=== PATIENT | female | born 1980 | race Caucasian/White ===

== ENCOUNTER 2022-09-12 10:47 | Outpatient (RCR) | payer BC, SELFPAY | END 2022-10-15 15:36 | disposition home or self-care (01) | LOC: PT 10:47 | PROVIDERS: PCP Podiatrist Foot & Ankle Surgery; Visit Provider Podiatrist Foot & Ankle Surgery | DX: M24.571 Contracture, right ankle (principal); M72.2 Plantar fascial fibromatosis; M25.561 Pain in right knee | CPT/HCPCS: 97035; 97110; 97140; 97161 ==

== ENCOUNTER 2022-12-03 09:02 | Outpatient (OUT) | payer BC, SELFPAY ==
--- NOTE | 2022-12-03 09:09 | ECG_ITS ---
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
--- NOTE | 2022-12-03 10:00 | P.GSHP_ITS ---
History of Present Illness History of Present Illness Chief complaint: right plantar fascia fibromatosis Narrative: Patient presents for preadmission testing. Patient reports a long history of right heel pain. She states she completed physical therapy, took meloxicam, tried a brace, no improvement her pain. The patient reports severe anxiety and fear over needle sticks and IV starts and is very focused on this during her visit here today. She states she had an episode of syncope with atrial fibrillation after a lab draw approximately 4-5 years ago. She denies any numbness, tingling, or weakness in her right lower extremity. Review of Systems ROS Narrative REVIEW OF SYSTEMS: Negative except as stated in HPI, ten or more systems reviewed. Constitutional: No fever , chills, weakness ENT: No sore throat or epistaxis Cardiovascular: No edema, chest pain, palpitations, or activity intolerance Respiratory: No shortness of breath, cough, or wheezing Gastrointestinal: No abdominal pain, constipation, diarrhea, or vomiting Genitourinary: No dysuria or hematuria Neurological: No numbness, tingling, weakness, or headache Psychiatric: No mood changes [facility] Medical History (Updated 12/03/22 @ 09:37 by Kera Foy NP) Ankle contracture ?M24.573 - Contracture, unspecified ankle (ICD-10) Anxiety ?F41.9 - Anxiety disorder, unspecified (ICD-10) Asthma ?J45.909 - Unspecified asthma, uncomplicated (ICD-10) Atrial fibrillation ?I48.91 - Unspecified atrial fibrillation (ICD-10) COVID-19 ?U07.1 - COVID-19 (ICD-10) Delayed recovery from anesthesia Fear of needles ?F40.298 - Other specified phobia (ICD-10) Hypothyroidism ?E03.9 - Hypothyroidism, unspecified (ICD-10) Migraine ?G43.909 - Migraine, unspecified, not intractable, without status migrainosus (ICD-10) Plantar fascial fibromatosis ?M72.2 - Plantar fascial fibromatosis (ICD-10) Snoring ?R06.83 - Snoring (ICD-10) Syncope ?R55 - Syncope and collapse (ICD-10) Surgical History (Updated 12/03/22 @ 09:37 by Kera Foy NP) History of dilation and curettage ?Z98.890 - Other specified postprocedural states (ICD-10) History of foot surgery ?Z98.890 - Other specified postprocedural states (ICD-10) History of hysterectomy ?Z90.710 - Acquired absence of both cervix and uterus (ICD-10) History of laparoscopy ?Z98.890 - Other specified postprocedural states (ICD-10) History of wisdom tooth extraction ?K08.409 - Partial loss of teeth, unspecified cause, unspecified class (ICD- 10) Family History (Updated 12/03/22 @ 09:37 by Kera Foy NP) Other Cervical cancer Family history of DVT Family history of breast cancer Family history of diabetes mellitus Family history of hypertension Family history of lung cancer Family history of myocardial infarction Family history of stroke Social History (Updated 12/03/22 @ 09:30 by Kera Foy NP) Within the past year, how often did you have a drink containing alcohol: monthly or less Smoking status: Never smoker Non-prescribed substance use: denies use 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 Highest level of school completed/degree received: high school graduate Meds Home Medications and Allergies Home Medications Medication Instructions Recorded Confirmed Type albuterol sulfate 90 mcg/actuation 2 inh inhalation Q6H PRN shortness 12/03/22 12/03/22 History aerosol inhaler (ProAir HFA) of breath or wheezing cetirizine 10 mg tablet (Zyrtec) 10 mg PO DAILY 12/03/22 12/03/22 History ergocalciferol (vitamin D2) 1,250 1,250 mcg PO DAILY 12/03/22 12/03/22 History mcg (50,000 unit) capsule (Drisdol) levothyroxine 125 mcg capsule 125 mcg PO DAILY 12/03/22 12/03/22 History multivitamin (Daily Multi-Vitamin 1 tab PO DAILY 12/03/22 12/03/22 History tablet) vitamin A 2,500 unit-vit C 100 cap 12/03/22 History mg-biotin 2,500 cnq-jutr-fujtgx capsule (Crpy-Ouji-Cdod (vit A,S-wqgfcx-Lh-Cu)) Allergies Allergy/AdvReac Type Severity Reaction Status Date / Time Cephalosporins Allergy itchy skin Verified 12/03/22 09:26 chlorpheniramine Allergy Hives Verified 12/03/22 09:26 phenylephrine Allergy Rash Verified 12/03/22 09:26 phenylpropanolamine Allergy Rash Verified 12/03/22 09:26 phenyltoloxamine Allergy Rash Verified 12/03/22 09:26 sulfamethoxazole Allergy itchy skin Verified 12/03/22 09:26 [From Bactrim] trimethoprim [From Bactrim] Allergy itchy skin Verified 12/03/22 09:26 Exam Narrative Exam Narrative: Constitutional: Awake, alert, very anxious, well-appearing, nontoxic, interactive, vital signs as charted Head: Normocephalic, atraumatic Neck: Supple, normal appearance, normal range of motion, no meningeal signs, no lymphadenopathy Respiratory: No respiratory distress, breath sounds clear Cardiovascular: Regular rate and rhythm, strong and regular heart tones Musculoskeletal: Tenderness over the medial instep of the right foot on the plantar aspect, no obvious deformity, sensation intact, full range of motion, good capillary refill Skin: No rashes or induration, no lesions, only visible skin inspected Neuro: No neurological deficits, normal sensation Psychiatric: Oriented ?3, anxious affect Assessment and Plan Assessment and Plan (1) Ankle contracture: (2) Plantar fascial fibromatosis: Plan Right lower extremity EPF and gastrocnemius recession scheduled with Dr. Mcghee 12/08/2022.
[2022-12-03 10:26] LABS: Anion Gap 8.9; BUN Creatinine Ratio 9.1; Calcium 8.7 mg/dL (8.5-10.1); Carbon Dioxide 27.9 mmol/L (21.0-32.0); Chloride 102 mmol/L (98-107); Estimated GFR (African America >60 (>=60); Estimated GFR (Non-African Ame >60 (>=60); Glucose 105 mg/dL (74-106); Potassium 3.8 mmol/L (3.5-5.1); Sodium 135 mmol/L (136-145)
[2022-12-03 10:30] LABS: INR 0.95; Prothrombin Time 10.1 sec (9.0-11.6)
== END 2022-12-03 09:03 | disposition home or self-care (01) ==
PROVIDERS: PCP Family Medicine; Visit Provider Podiatrist Foot & Ankle Surgery
DX: Z01.810 Encounter for preprocedural cardiovascular examination (principal); Z01.812 Encounter for preprocedural laboratory examination; M72.2 Plantar fascial fibromatosis; M24.571 Contracture, right ankle; I10 Essential (primary) hypertension
CPT/HCPCS: 80048; 85610; 85730; 93005; G0463

== ENCOUNTER 2022-12-08 06:16 | Day surgery (SDC) | payer BC, SELFPAY ==
[2022-12-03 09:56] VITALS: BP 119/73; PULSE 72; RESP 22; TEMP 36.5; O2SAT 98; BMI 37.8
[2022-12-08] VITALS (10 sets, daily range): BP systolic 116–146; BP diastolic 63–76; PULSE 78–93; RESP 10–18; TEMP 36.3–36.5; O2SAT 93–99
[2022-12-08 07:23] LABS: Glucometer 104 mg/dL (74-106)
--- NOTE | 2022-12-08 07:42 | PC.NURSE ---
Tolerated IV start very poorly; 3 attempts unsuccessful by 3 different nurses
[2022-12-08] MEDS: LACTATED RINGER'S SOLUTION 1,000 ML 50 ML IV (07:45)
[2022-12-08] MEDS: CLINDAMYCIN PHOSPHATE/D5W 900 MG/50 ML PIGGYBACK 50 MG IV (07:46)
--- NOTE | 2022-12-08 08:14 | P.ORON_ITS ---
Brief Operative Note Date of procedure: 12/08/22 Pre-op diagnosis: right plantar fasciitis and equinus Post-op diagnosis: same as pre-op Procedure: PROCEDURES PERFORMED: right endoscopic plantar fasciotomy and gastrocnemius recession INTRAOPERATIVE FINDINGS: reduced ankle joint dorsiflexion which is more pronounced with the knee extended. Thickened and taught plantar fascia consistent with chronic plantar fasciitis. PROCEDURE IN DETAIL: Patient was identified in pre op and consent was reviewed. Correct side and site were identified and marked. Pre-op antibiotics were started. Patient was brought to OR suite and place on table in a supine position. General anesthesia was administered. Tourniquet applied. Operative extremity was prepped and draped in usual sterile fashion. Formal time-out was performed and the foot/ankle were exsanguinated and tourniquet inflated. A longitudinal incision over the medial aspect of the calf two finger breadths posterior to the posterior aspect of tibia was performed. Combination sharp and blunt dissection with all bleeders being coagulated gained access to the gastrocnemius aponeurosis. Once the aponeurosis was isolated a speculum was inserted from the medial to lateral position just superficial to the aponeurosis. The speculum allowed full visualization of the aponeurosis and the foot was held in maximal dorsiflexed position. A fifteen blade was used to transversely incise the gastrocnemius fascia to two separate location (one proximal and one distal) followed by release of the soleus fascia. 10 degrees of ankle joint dorsiflexion was obtained. The area was flushed with copious sterile saline and skin was closed in layers. Stab incision over the medial aspect of the in-step at the glabrous skin junction was used followed by blunt dissection and the medial band of the plantar fascia was identified. Trochar and cannula were then placed medial to lateral. A lateral stab incision was made to allow passage of the trochar and cannula. Camera was inserted into the lateral portal and a hook blade was placed into the medial portal. 50% of the plantar fascia was released and healthy muscle was noted. The site was flushed with saline and instrumentation was removed. Closure with nylon suture was then undertaken. A dry sterile dressing was placed followed by CAM boot. Patient tolerated the procedure and anesthesia well and was transferred to the recovery room with vital signs stable and brisk capillary refill to the toes. POSTOPERATIVE PLAN:Discharge home under family's care Post op instructions provided verbally and written prescription(s) were placed in chart Weightbearing as tolerated in cam boot for three weeks Patient should sleep in cam boot or night splint Follow-up in 1-3 weeks Implants: none Anesthesia: General-LMA Surgeon: Jun Mcghee Locker Room Supervisor: Severiano Carson Estimated blood loss (mL): 10 Pathology: none sent Condition: stable Disposition: PACU Preoperative Details Reason for procedure: patient is a 42-year-old female who is had recalcitrant right heel pain which did not respond to nonsurgical treatment. Nonsurgical treatment attempted was formal physical therapy, night splint, compression socks, oral steroids, heel cup/orthotics and NSAIDs. An MRI was obtained which demonstrated thickening of the plantar fascia with bone marrow edema at its attachment. Due to her failure to respond to nonsurgical treatment she wished to proceed with surgery and she was educated on all potential risks and benefits.
[2022-12-08] MEDS: BUPIVACAINE HCL 0.5% PF 50 MG/10 ML VIAL 20 ML INJ (08:16)
[2022-12-08 09:20] LABS: Glucometer 112 mg/dL (74-106)
--- NOTE | 2022-12-08 09:27 | PC.NURSE ---
Toes to right pink and warm with brisk capillary refill; extremity elevated and ice placed behind knee
--- NOTE | 2022-12-08 09:33 | PC.NURSE ---
right toes pink and warm
--- NOTE | 2022-12-08 10:14 | PC.NURSE ---
c/o pain in right calf, only with movement
--- NOTE | 2022-12-08 12:03 | PC.NURSE ---
c/o nausea after getting dressed; no emesis; assisted with lying down
--- NOTE | 2022-12-08 12:04 | PC.NURSE ---
states nausea continues when in sitting position; no emesis; DC'd per wheelchair; states she has pain in right calf when putting weight on extremity; instructed to take pain medication that will be picked up at pharmacy; verbalized understanding
== END 2022-12-08 11:35 | disposition home or self-care (01) ==
PROVIDERS: PCP Family Medicine; Visit Provider Podiatrist Foot & Ankle Surgery
PROC: (CPT 27687; principal; 2022-12-08 07:30)
DX: M72.2 Plantar fascial fibromatosis (principal); M24.571 Contracture, right ankle; Z79.899 Other long term (current) drug therapy; M21.6X1 Other acquired deformities of right foot; F41.9 Anxiety disorder, unspecified; J45.909 Unspecified asthma, uncomplicated; I48.91 Unspecified atrial fibrillation; Z86.16 Personal history of COVID-19; F40.298 Other specified phobia; E03.9 Hypothyroidism, unspecified; Z90.710 Acquired absence of both cervix and uterus; Z98.890 Other specified postprocedural states; Z79.890 Hormone replacement therapy
CPT/HCPCS: 27687; 29893; 36415; 36416; 82948; J1170; J2704

== ENCOUNTER 2023-01-19 10:00 | Outpatient (OUT) | payer BC, SELFPAY | END 2023-01-19 10:01 | disposition home or self-care (01) | LOC: SLEEP 10:00 | PROVIDERS: PCP Family Medicine; Visit Provider Family Medicine | DX: G47.33 Obstructive sleep apnea (adult) (pediatric) (principal) | CPT/HCPCS: 95806 ==

== ENCOUNTER 2024-04-28 10:50 | Outpatient (OUT) | payer BC, SELFPAY ==
--- NOTE | 2024-04-28 10:59 | XR_ITS ---
[facility] [place] [id number] Patient Name: RUBIA GIPSON MRN: [id number] date: 1980 Sex: F Assigned Patient Location: [facility] Current Patient Location: [facility] Accession/Order Number: [id number] Exam Date: 04/28/2024 11:23 Report Date: 04/28/2024 11:26 At the request of: FATOUMATA BARRIOS MD Procedure: XR wrist LT min 3V LEFT WRIST - 3 views COMPARISON: None CLINICAL DATA: Left wrist pain. Recent falls. AP, lateral and oblique views were obtained. No acute or healing fractures are identified. No dislocation is seen. No soft tissue swelling is present. XR/XR wrist LT min 3V IMPRESSION: NO ACUTE BONY FINDINGS. Impression dictated by: Courtney Rodríguez M.D.04/28/2024 11:26 AM Dictation Location: [facility] Electronically authenticated by: [id number] Y Date: 04/28/2024 11:26
--- OUTSIDE RECORDS SUMMARY | 2024-04-28 11:00 | XMS_ITS | CCD ---
Author Organization [facility] Care Team Providers Care Appraiser [employer] Name Role Phone PHYSICIAN, DEFAULT Admitting Unavailable PHYSICIAN, DEFAULT Attending Unavailable Daria Lawler Unavailable MD Cristina Barrios Primary Care Provider MD Cristina Barrios Attending Provider EMMANUEL, DR GORDON Admitting Unavailable KAREDUARDOK, DR GORDON Attending Unavailable DENIS, DR CRISTINA Garces Primary Care Unavailable KARMADISON, DR GORDON Consulting Unavailable ZIEBER, DR MG Rivers Consulting Unavailable LISANDROJEMAL LUKE Admitting Unavailable JEMAL MCMAHON Attending Unavailable DENIS, DR CRISTINA Garces Primary Care Unavailable JEMAL MCMAHON Consulting Unavailable DENIS, DR CRISTINA Garces Admitting Unavailable BARRIOS, DR CRISTINA Garces Attending Unavailable DENIS, DR CRISTINA Garces Primary Care Unavailable BARRIOS, DR CRISTINA Garces Consulting Unavailable KARASIK, DR GORDON Admitting Unavailable KARASIK, DR GORDON Attending Unavailable DENIS, DR CRISTINA Garces Primary Care Unavailable KARMADISON, DR GORDON Consulting Unavailable Cristina Barrios Unavailable KIMBERLY Hobson Attending Provider Stephanie Hobson Admitting Unavailable Stephanie Hobson Attending Unavailable Cristina Barrios Admitting Unavailable Cristina Barrios Primary Care Unavailable Cristina Barrios Attending Unavailable Stephanie Hobson Unavailable Cristina Barrios MD Primary Care Provider [phone] QUITA BARNEY Attending Unavailable CRISTINA BARRIOS Referring Unavailable SUZE SOMERS Attending Unavailable SUZE SOMERS Referring Unavailable Allergies Allergy Classification Reported Allergen(s) Allergy Type Date of Onset Reaction(s) Facility (16 sources) Sulfamethoxazole / Trimethoprim Drug Allergy 023 Itching, Rash [employer] Other (15 sources) cephalaexin Propensity to adverse reactions Unknown, [facility] (17 sources) Cephalexin; Translations: [cephalexin] Drug Allergy 009 Hives, Rash [facility] (6 sources) Sulfamethoxazole Drug Allergy Dizziness, Dizziness, itching [facility] (10 sources) Trimethoprim Drug Allergy Dizziness, Dizziness, itching [facility] (16 sources) naldacon Allergy to substance Rash, NALDACON Comment:facial [facility] (5 sources) Cephalosporins (Antibiotic) Drug allergy (disorder) CEPHALOSPORINS [facility] (1 source) Chlorpheniramine / Phenylephrine / Phenylpropanolamine / phenyltoloxamine Drug Allergy [facility] (1 source) Sulfamethoxazole / Trimethoprim Drug Allergy [facility] (6 sources) Seasonal allergy Propensity to adverse reactions SEASONAL [employer] Other (6 sources) NALDOCON Propensity to adverse reactions 014 Unknown [employer] Other (6 sources) Medicinal cephalosporin and acting as antibacterial agent (FN) Drug allergy CEPHALOSPORINS [employer] Other (6 sources) Sulf-10 Drug allergy 018 Unknown [employer] Other (6 sources) Allergies Reconciled Propensity to adverse reactions Unknown [employer] Other (6 sources) patient allergy list reviewed by nurse or physicia Propensity to adverse reactions Comment:Done [employer] Other (4 sources) Sulfonamides (Antibiotic) Allergy to substance 024 [facility] (5 sources) Sulfonamides (Antibiotic) Drug Allergy Rash [facility] (4 sources) Cephalosporins (Antibiotic) Drug Allergy 024 Itching [facility] Medications Current Medications Medication Drug Class(es) Dates Sig (Normalized) Sig (Original) Airborne Gummies (11 sources) Airborne Gummies Not-Taking Airborne Gummies Active [id number] 200 actuat albuterol 0.09 mg/actuat metered dose inhaler (14 sources) beta2-Adrenergic Agonist Start: 04-21-2023 take 1 puff(s) by inhalation every four hours as needed Albuterol Sulfate (Ventolin Hfa) 90 mcg/actuation HFA aerosol inhaler Active 1 PUFF INHALATION Every 4 hours April 21, 2023 1:00am [employer] puff as needed Inhalation every 4 hrs; Note: Source Status: Taking; Provider: Denis Evans ( ) take 1 puff(s) by in halation every four hours as needed Ventolin HFA 108 (90 Base) MCG/ACT 1 puf f as needed Inhalation every 4 hrs Active cetirizine hydrochloride 10 mg oral tablet (19 sources) Histamine-1 Receptor Antagonist Start: 04-21-2023 take 1 tablet by mouth once daily as needed Cetirizine (Zyrtec) 10 mg tablet Active 1 TAB PO Daily April 21, 2023 1:00am [employer] tablet as needed Orally Once a day; Note: Source Status: Taking; Provider: Denis Evans ( ) cetirizine (ZyrT EC) 10 MG tablet Take 5 mg by mouth Active Cholecalciferol (9 sources) Vitamin D Start: 04-21-2023 take 10 ug by mouth once daily Cholecalciferol (Vitamin D3) Active 10 MCG PO Daily April 21, 2023 1:00am Start: 04-21-2023 take 10 ug by mouth once daily Cholecalciferol (Vitamin D3) Active 10 MCG PO Daily April 21, 2023 12:00am End: 02-12-2024 cholecalciferol (Vitamin D3) 25 MCG (1000 UT) tablet 1 (one) time each day at the same time 02/12/2024 Discontinued (Therapy completed) doxycycline hyclate 100 mg oral tablet (1 source) Tetracycline-class Drug Start: 11-23-2023 take 100 mg by mouth twice daily Doxycycline Hyclate Active 100 MG PO Twice daily November 23, 2023 12:00am fluticasone propionate 0.05 mg/actuat metered dose nasal spray (9 sources) Corticosteroid Start: 06-24-2021 take 2 spray(s) nasal route once daily Fluticasone Propionate 50 MCG/ACT 2 sprays Nasally Once a day for 14 day(s) May, Active take 1 spray(s) nasal route once daily fluticasone (Flonase) 50 MCG/ACT nasal spray Administer 1 spray into each nostril Daily Shake gently. Before first use, prime pump. After use, clean tip and replace cap. Active meloxicam 15 mg oral tablet (5 sources) Nonsteroidal Anti-inflammatory Drug take 1 tablet by mouth every twenty-four hours Meloxicam 15 MG 1 tablet Orally Once a day Active Meloxicam Active Mgrjgshh-Ogl-Rwx C-Herb No.124 (Airborne Gummy) 250-11.66 mg tablet,chewable (4 sources) Start: 04-21-2023 take 1 tablet by mouth once Nfcipltb-Udl-Phg C-Herb No.124 (Airborne Gummy) 250-11.66 mg tablet,chewable Active TAB PO April 21, 2023 1:00am Start: 04-21-2023 take 1 tablet by mouth once Mu hpyhav-Etu-Hsv C-Herb No.124 (Airborne Gummy) 250-11.66 mg tablet,chewable Active TAB PO April 21, 2023 12:00am Multivitamin (One Daily Multivitamin) tablet (4 sources) Start: 04-21-2023 take 1 tablet by mouth once daily Multivitamin (One Daily Multivitamin) tablet Active 1 TAB PO Daily April 21, 2023 1:00am Start: 04-21-2023 take 1 tablet by hang th once daily Multivitamin (One Daily Multivitamin) tablet Active 1 TAB PO Daily April 21, 2023 12:00am Multivitamin preparation (11 sources) Multivitamin Not -Taking Multivitamin Act [place] Vitamin D3 (11 sources) Vitamin D3 Activ e Completed/Discontinued Medications Medication Drug Class(es) Dates Sig (Normalized) Sig (Original) amoxicillin 500 mg oral tablet (2 sources) Penicillin-class Antibacterial Start: 11-10-2023 End: 11-23-2023 take 500 mg by mouth three times daily Amoxicillin Discontinued 500 MG PO Three times daily November 10, 2023 12:00am November 23, 2023 9:03am azithromycin 250 mg oral tablet (14 sources) Macrolide Antimicrobial Start: 02-16-2023 End: 11-10-2023 take 2 tablets by mouth once daily, then take 1 tablet by mouth once daily Azithromycin Discontinued 250 MG PO Daily June 30, 2023 11:34am November 10, 2023 2:02pm FreeTextSig: as directed Orally 2 tabs po today, then 1 tab daily x 4 more days; Note: Source Status: Start; Refills: 0; Provider: Denis Garces levothyroxine sodium 0.125 mg oral capsule (20 sources) l-Thyroxine Start: 04-21-2023 End: 06-30-2023 take 125 ug by mouth once daily Levothyroxine Discontinued 125 MCG PO Daily April 21, 2023 1:00am June 30, 2023 11:19am Start: 04-24-2017 take 125 ug by mouth once benoit y Levothyroxine Active 125 MCG PO Daily April 24, 2017 1:00am take 1 capsule by [facility] every twenty-four hours Levothyroxine Sodium 125 MCG 1 tablet Orally Once a day for 30 Active Ortho-Cyclen (28) 0.25-35 MG-MCG (5 sources) take 1 tablet by mouth once daily Ortho-Cyclen (28) 0.25-35 MG-MCG 1 tablet Orally Once a day Not-Taking phenazopyridine hydrochloride 200 mg oral tablet (10 sources) Start: 04-21-2023 End: 06-30-2023 take 1 tablet by mouth three times daily after mealtime as needed Phenazopyridine Discontinued MG PO April 21, 2023 1:00am June 30, 2023 11:21am [employer] tablet after meals Orally Three times a day prn; Note: Source Status: Taking; Refills: 0; Qty: 9 tabs; Provider: Jazlyn Brown Start: 12-06-2022 take 1 tablet by hang three times daily after mealtime as needed Phenazopyridine HCl 200 MG 1 tablet after meals Orally Three times a day prn for 3 days Nov, Active Start: 12-06-2022 take 1 tablet by hang three times daily after mealtime as needed Phenazopyridine HCl 200 MG 1 tablet after meals Orally Three times a day prn for 3 days Nov, Active traMADol hydrochloride 50 mg oral tablet (4 sources) Opioid Agonist take 1 tablet by hang th every twenty-four hours traMADol HCl 50 MG 1 tablet as needed Orally Once a day Not-Taking Problems Active Problems Problem Classification Problem Date Documented Date Episodic/Chronic Abdominal pain (20 sources) Abdominal pain; Translations: [Unspecified abdominal pain] Onset: 02-20-2017 Resolved: 01-05-2020 04-24-2017 Episodic Acquired foot deformities (6 sources) Acquired deformity of right foot; Translations: [Other acquired deformities of right foot] Episodic Asthma (20 sources) Uncomplicated mild persistent asthma; Translations: [Mild persistent asthma, uncomplicated] Chronic Cardiac dysrhythmias (6 sources) Atrial fibrillation; Translations: [Unspecified atrial fibrillation] Chronic Complications of surgical procedures or medical care (15 sources) Postoperative hypothyroidism; Translations: [Postprocedural hypothyroidism] Onset: 07-03-2021 Chronic Esophageal disorders (16 sources) Gastroesophageal reflux disease; Translations: [Gastro-esophageal reflux disease without esophagitis] Chronic Genitourinary symptoms and ill-defined conditions (17 sources) Dysuria; Translations: [Dysuria] Onset: 01-07-2022 Episodic Inflammation; infection of eye (except that caused by tuberculosis or sexually transmitteddisease) (6 sources) External hordeolum; Translations: [Hordeolum externum left lower eyelid] Episodic Inflammatory diseases of female pelvic organs (6 sources) Female pelvic peritoneal adhesions; Translations: [Female pelvic peritoneal adhesions (postinfective)] Episodic Mycoses (6 sources) Tinea corporis; Translations: [Tinea corporis] Episodic Nonmalignant breast conditions (12 sources) Pain of breast; Translations: [Mastodynia] Onset: 11-10-2006 Resolved: 11-15-2015 Episodic Nutritional deficiencies (1 source) Vitamin D deficiency, unspecified; Translations: [VITAMIN D DEFICIENCY UNSPECIFIED] Onset: 07-04-2021 Chronic Other acquired deformities (6 sources) 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; Translations: [Contracture, right ankle] Chronic Other aftercare (6 sources) Long-term current use of inhaled steroid; Translations: [FDC (current) use of 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] Episodic Other circulatory disease (6 sources) Elevated blood-pressure reading without diagnosis of hypertension; Translations: [Elevated blood-pressure reading, without diagnosis of hypertension] Episodic Other connective tissue disease (6 sources) Muscle pain; Translations: [MYALGIA, UNSPECIFIED SITE] Episodic Other connective tissue disease (6 sources) Peroneal tendinitis; Translations: [Peroneal tendinitis, right leg] Episodic Other non-traumatic joint disorders (16 sources) Arthralgia of the ankle and/or foot; Translations: [Pain in right ankle and joints of right foot] Episodic Other non-traumatic joint disorders (1 source) Pain in right ankle and joints of right foot Episodic Other non-traumatic joint disorders (6 sources) Arthralgia of the lower leg; Translations: [Pain in left knee] Episodic Other non-traumatic joint disorders (6 sources) Instability of joint of right ankle; Translations: [Other instability, right ankle] Episodic Other nutritional; endocrine; and metabolic disorders (20 sources) Obesity; Translations: [Obesity, unspecified] Onset: 10-16-2015 Chronic Other nutritional; endocrine; and metabolic disorders (11 sources) Obese class I; Translations: [Body mass index (BMI) 33.0-33.9, adult] Chronic Other nutritional; endocrine; and metabolic disorders (12 sources) Obese class II; Translations: [Body mass index (BMI) 35.0-35.9, adult] Chronic Other screening for suspected conditions (not mental disorders or infectious disease) (10 sources) Encounter for screening mammogram for malignant neoplasm of breast; Translations: [Encounter for screening for malignant neoplasm of cervix] Onset: 01-27-2022 Episodic Other skin disorders (6 sources) Other seborrheic keratosis; Translations: [Seborrheic keratosis] Episodic Other upper respiratory disease (12 sources) Allergic rhinitis; Translations: [Other allergic rhinitis] Onset: 06-17-2013 Resolved: 01-05-2020 Chronic Other upper respiratory infections (6 sources) Chronic sinusitis; Translations: [Chronic sinusitis, unspecified] Chronic Other upper respiratory infections (13 sources) Acute sinusitis, unspecified; Translations: [Acute sinusitis] Onset: 06-17-2013 Resolved: 06-24-2021 Episodic Otitis media and related conditions (4 sources) Chronic mucoid otitis media of left middle ear; Translations: [Other chronic nonsuppurative otitis media, left ear] 11-23-2023 Chronic Otitis media and related conditions (20 sources) Dysfunction of left eustachian tube; Translations: [Other specified disorders of Eustachian tube, left ear] Onset: 12-01-2023 12-01-2023 Episodic Residual codes; unclassified (5 sources) Obstructive sleep apnea syndrome; Translations: [Obstructive sleep apnea (adult) (pediatric)] Chronic Residual codes; unclassified (2 sources) Obstructive sleep apnea (adult) (pediatric) Chronic Residual codes; unclassified (1 source) Family history of malignant neoplasm of breast; Translations: [FAMILY HX MALIG NEOPLASM OF BREAST] Onset: 02-25-2022 Episodic Residual codes; unclassified (1 source) Family history of malignant neoplasm of trachea, bronchus and lung; Translations: [FAM HX MALIG NEOPLSM TRACH BRON LNG] Onset: 02-25-2022 Episodic Residual codes; unclassified (1 source) Family history of malignant neoplasm of other genital organs; Translations: [FAM HX MALIG NEOPLSM OTH GENIT ORGN] Onset: 02-25-2022 Episodic Residual codes; unclassified (6 sources) Family history of breast cancer; Translations: [Family history of malignant neoplasm of breast] Episodic Residual codes; unclassified (6 sources) Patient's intentional underdosing of medication regimen due to financial hardship; Translations: [Patient's intentional underdosing of medication regimen due to financial hardship] Episodic Residual codes; unclassified (6 sources) Tobacco user; Translations: [Tobacco use] Episodic Residual codes; unclassified (6 sources) Postprocedural state finding; Translations: [Other specified postprocedural states] Episodic Skin and subcutaneous tissue infections (6 sources) Cellulitis and abscess of trunk; Translations: [Cutaneous abscess of groin] Episodic Thyroid disorders (20 sources) Graves' disease; Translations: [Thyrotoxicosis with diffuse goiter without thyrotoxic crisis or storm] Onset: 05-22-2014 Resolved: 01-05-2020 Chronic Viral infection (6 sources) Disease caused by 2019-nCoV; Translations: [COVID-19] Past or Other Problems Problem Classification Problem Date Documented Date Episodic/Chronic Acute bronchitis (6 sources) Acute bronchitis; Translations: [Acute bronchitis, unspecified] Onset: 10-13-2014 Episodic Administrative/social admission (6 sources) Problems in relationship with spouse or partner; Translations: [Partner relationship problem] Onset: 06-14-2009 Episodic Endometriosis (6 sources) Endometriosis; Translations: [Endometriosis of pelvic peritoneum, unspecified] Resolved: 11-24-2016 Immunizations and screening for infectious disease (7 sources) Encounter for screening for human papillomavirus (HPV); Translations: [Vaccination given] Onset: 12-15-2013 Resolved: 01-05-2020 Episodic Malaise and fatigue (6 sources) Malaise and fatigue; Translations: [Other malaise and fatigue] Onset: 01-11-2014 Episodic Nonspecific chest pain (6 sources) Chest pain; Translations: [Chest pain, unspecified] Onset: 11-23-2017 Resolved: 01-05-2020 Episodic Other aftercare (6 sources) History and physical examination, follow-up; Translations: [Encounter for follow-up examination after completed treatment for conditions other than malignant neoplasm] Resolved: 10-27-2016 Episodic Other connective tissue disease (6 sources) Pain in right foot; Translations: [Pain in right foot] Resolved: 01-21-2021 Episodic Other ear and sense organ disorders (6 sources) Otalgia; Translations: [Otalgia, unspecified ear] Onset: 05-22-2014 Resolved: 01-05-2020 Episodic Other female genital disorders (6 sources) Abnormal uterine bleeding; Translations: [Abnormal uterine and vaginal bleeding, unspecified] Resolved: 11-24-2016 Chronic Other female genital disorders (6 sources) Postcoital bleeding; Translations: [Postcoital and contact bleeding] Resolved: 11-24-2016 Chronic Other female genital disorders (6 sources) Abnormal vaginal bleeding; Translations: [Other specified abnormal uterine and vaginal bleeding] Onset: 08-22-2016 Resolved: 01-05-2020 Chronic Other female genital disorders (6 sources) Other specified conditions associated with female genital organs and menstrual cycle; Translations: [Oth cond assoc w female genital organs and menstrual cycle] Resolved: 11-24-2016 Episodic Other nutritional; endocrine; and metabolic disorders (6 sources) Abnormal weight gain; Translations: [Abnormal weight gain] Onset: 01-11-2014 Resolved: 01-05-2020 Episodic Other nutritional; endocrine; and metabolic disorders (6 sources) Overweight; Translations: [Overweight] Onset: 10-16-2015 Resolved: 01-05-2020 Episodic Other and delivery including normal (6 sources) Primigravida; Translations: [Supervision of normal first ] Onset: 04-06-2006 Episodic Spondylosis; intervertebral disc disorders; other back problems (6 sources) Low back pain; Translations: [Lumbago] Onset: 05-22-2014 Resolved: 01-05-2020 Episodic Unclassified (6 sources) Contraception care education done; Translations: [General counseling for prescription of oral contraceptives] Onset: 12-17-2006 Results Test Name Value Interpretation Reference Range Facil ity BI MAMMOGRAM SCREENING TOMOS YNTHESIS BILATERALon 03-14-2024 BI MAMMOGRAM SCREENING TOMOSYNTHESIS BILATERAL This is a summary report. The complete report is available in the patient's medical record. If you cannot access the medical record, please contact the sending organization for a detailed fax or copy. Examination: BI MAMMOGRAM SCREENING TOMOSYNTHESIS BILATERAL Clinical History: screening Technique: Screening digital mammography study of both breasts was performed with 2-D and 3-D tomosynthesis imaging. Study was compared to the prior exam dated 02/20/2023. Findings: There is no evidence of interval dominant spiculated mass, grouped microcalcifications, or skin thickening which would be suggestive of malignancy. A few benign-appearing calcifications are noted bilaterally. Partially visualized axillary lymph node is suggested on the left. IMPRESSION: Impression: No specific evidence of malignancy seen in either breast. BIRADS 2 - Benign Findings DENSITY: There are scattered areas of fibroglandular density. FOLLOW-UP: Routine Screening Mammogram ELECTRONICALLY SIGNED BY: Wili Mak M.D. Normal Not Available Urine Cultureon 12-06-2022 Bacteria identified Cx Nom (U) Reason for Exam Dysuria Urine <9,000 colonies/ml mixed bacterial skin contaminants 2 Days PERFORMED BY: [place] [id number] PATHOLOGIST FENCE LABORER OTILIA HO M.D. Normal [facility] Comment on above: Performed By: #### C UU #### [address] MG MAMM SCREEN 3D AUGUST CADon 02-17-2022 MG MAMM SCREEN 3D AUGUST CAD Patient: SAHARA GIPSON I. Exam Date: 02/17/2022 : 1980 Gender:F Ordering : DR EVAN BENITEZ . Admission #: [id number] Family : Order #: [id number] CLICK HERE TO VIEW EXAM RADIOLOGY REPORT PROCEDURE: MAMMOGRAM SCREENING 3D BILATERAL CAD COMPARISON: MG MAMM SCREEN 3D AUGUST CAD, 02/14/2021. MG MAMM SCREEN AUGUST W CAD, 02/07/2020. INDICATIONS: Screening mammography Calculator Name NCI Breast Cancer Risk Assessment Tool 5 Year Breast Cancer Risk 1.20% Lifetime Breast Cancer Risk 18.60% Personal Breast Cancer No Personal Ovarian Cancer No Treatments None Family Cancers Mother with breast cancer at age 59; Sister with cervical cancer at age 25; Grandmother-maternal with lung cancer at age 60. LOCATION: [facility] BREAST COMPOSITION: Heterogeneously dense,which may obscure small masses. FINDINGS: DIAGNOSTIC CATEGORY 1--NEGATIVE. RIGHT BREAST: No significant suspicious finding. No significant change has occurred. LEFT BREAST: No significant suspicious finding. No significant change has occurred. RECOMMENDATIONS: ROUTINE MAMMOGRAM AND CLINICAL EVALUATION IN 12 MONTHS. PLEASE NOTE: A NORMAL MAMMOGRAM DOES NOT EXCLUDE THE POSSIBILITY OF BREAST CANCER. A CLINICALLY SUSPICIOUS PALPABLE LUMP SHOULD BE BIOPSIED. Dictated by: Mg Weller M.D. on 02/18/2022 at 12:27 Approved by: Mg Weller M.D. on 02/18/2022 at 12:28 [facility] PAP ACOG PANEL 2: 30 to 65on 02-04-2022 . . Normal [facility] Comment on above: Result Comment: Perf ormed at: WB Performed By: #### [id number] #### [facility] [address] [address] [address] Micha Proctor Age Gdln ACOG Testing 30-65 Normal [facility] Comment on above: Performed By: #### [id number] #### [facility] [address] [address] [address] Micha Proctor DIAGNOSIS: Comment [facility] Comment on above: Result Comment: NEGA TIVE FOR INTRAEPITHELIAL LESION OR MALIGNANCY. Performed at: WB Performed By: #### [id number] #### [facility] [address] [address] [address] Micha Proctor HPV Aptima Negative Normal Negative [facility] Comment on above: Result Comment: This nucleic acid amplification test detects fourteen high-risk HPV types (16,18,31,33,35,39,45,51,52,56,58,59,66,68) without differentiation. Performed at: =G Performed By: #### [id number] #### [facility] [address] [place] [address] Dr. Micha Proctor HPV Genotype Reflex Comment Normal [facility] Comment on above: Result Comment: Crit eria not met, HPV Genotype not performed. Performed at: WB Performed By: #### [id number] #### [facility] [address] [place] [address] Dr. Micha Proctor Methodology: Comment Normal [facility] Comment on above: Result Comment: This liquid based ThinPrep(R) pap test was screened with the use of an image guided system. Performed at: WB Performed By: #### [id number] #### [facility] [address] [place] [address] Dr. Micha Proctor Note: Comment Normal [facility] Comment on above: Result Comment: The Pap smear is a screening test designed to aid in the detection of premalignant and malignant conditions of the uterine cervix. It is not a diagnostic procedure and should not be used as the sole means of detecting cervical cancer. Both false-positive and false-negative reports do occur. . Performed at: WB Performed By: #### [id number] #### [facility] [address] [place] [address] Dr. Micha Proctor Performed by: Comment Normal [facility] Comment on above: Result Comment: Vicki Elliott, Diesel Engine Assembler (ASCP) Performed at: WB Performed By: #### [id number] #### [facility] Laboratory [address] [place] [address] Dr. Micha Proctor Specimen adequacy: Comment Normal [facility] Comment on above: Result Comment: Sati sfactory for evaluation. No endocervical cells are present. This is consistent with a history of hysterectomy. Performed at: WB Performed By: #### [id number] #### [facility] Laboratory [address] [address] [address] Micha Proctor XR KUBon 01-10-2022 XR KUB [facility] [address] [place] [id number] XRay Report Signed Patient: Sahara Gipson I MR#: [id number] 22 : 1980 Acct:[id number] Age/Sex: 41 / F ADM Date: 01/10/22 Loc: ICXD Room: Type: [facility] Attending Dr: Cristina Barrios MD Copies to: Cristina Barrios MD Ordering Provider: Cristina Barrios MD Date of Service: 01/10/22 XR/XR KUB: RIGHT FLANK PAIN R10.9 KUB: CLINICAL DATA: Right-sided flank pain radiating to the groin. COMPARISON: None Supine views of the abdomen and pelvis were obtained. There is air and stool within the colon. No dilated small bowel is seen. The kidneys are partially obscured. No obvious radiopaque renal, urete ral or bladder stones are identified. There is a phlebolith the pelvis on the left. No soft tissue masses are noted. There is mild degenerative change at the spine. XR/XR KUB IMPRESSION: NO DEFINITE RADIOPAQUE STONES WITHIN LIMITS OF BOWEL GAS AND STOOL. NO OTHER ACUTE FINDINGS. Impression dictated by: Courtney Rodríguez M.D.01/10/2022 4:04 PM Dictation Location: [place] [address] Transcribed By: [facility] 01/10/22 1604 Dictated By: Courtney Rodríguez MD 01/10/22 1602 Signed By: 01/10/22 [address] [facility] CULTURE URINEon 01-07-2022 CULTURE URINE Culture Observations : LIGHT GROWTH OF MIXED GENITAL ALLA. NO POTENTIAL PATHOGENS SEEN. Normal [facility] Comment on above: Performed By: #### U RCX #### [facility] Laboratory [address] [address] [address] Micha Proctor FREE T3on 07-03-2021 FREE T3 2.59 pg/mlL Normal 2.18-3.98 [facility] Comment on above: Performed By: #### F T3, TSH #### [facility] Laboratory [address] [place] [address] Dr. Micha Proctor FREE T4on 07-03-2021 Free T4 [Mass/Vol] 1.34 ng/dL Normal 0.76-1.46 [facility] Comment on above: Performed By: #### V ITAD, FT4 #### [facility] Laboratory [address] [place] [address] Dr. Micha Proctor TSHon 07-03-2021 TSH 0.277 uIU/mL Critically low 0.470-4.680 [facility] Comment on above: Performed By: #### F T3, TSH #### [facility] [address] [place] [address] Dr. Micha Proctor TSH RANGE SEE BELOW Normal [facility] Comment on above: Result Comment: <0.3 4 UIU/ml HYPERTHYROID 0.34-5.60 UIU/ml EUTHYROID >5.60 UIU/ml HYPOTHYROID Performed By: #### F T3, TSH #### [facility] [address] [place] [address] Dr. Micha Proctor VITAMIN D 25 OHon 07-03-2021 VIT D 25-OH 32.2 ng/mL Normal [facility] Comment on above: Performed By: #### V ITAD, FT4 #### [facility] [address] [place] [address] Dr. Micha Proctor VIT D RANGES SEE BELOW Normal [facility] Comment on above: Result Comment: <20 ng/mL Vit D deficient 20 - <30 ng/mL Vit D insufficient 30 - 100 ng/mL Vit D sufficient >100 ng/mL Potential Toxicity Performed By: #### V ITAD, FT4 #### [facility] [address] [place] [address] Dr. Micha Proctor Vital Signs Date Time Vital Sign Value Performing Clinician Facility 02-12-2024 13:08-0500 Body mass index (BMI) [Ratio] 36.73 kg/m2 Suze Somers [facility] Work Phone: [facility] 02-12-2024 13:08-0500 Body weight 116.12 kg Suze Somers CNM Work Phone: [facility] 02-12-2024 13:08-0500 Diastolic blood pressure 80 mm[Hg] Suze Somers CNM Work Phone: [facility] 02-12-2024 13:08-0500 Systolic blood pressure 120 mm[Hg] Suze Somers CNM Work Phone: [facility] 12-01-2023 13:42-0400 Body height 177.8 cm Quita Barney MD Work Phone: [facility] 12-01-2023 13:42-0400 Body mass index (BMI) [Ratio] 37.31 kg/m2 Quita Barney MD Work Phone: [facility] 12-01-2023 13:42-0400 Body weight 117.94 kg Quita Barney MD Work Phone: [facility] 12-01-2023 13:42-0400 Diastolic blood pressure 71 mm[Hg] Quita Barney MD Work Phone: [facility] 12-01-2023 13:42-0400 Systolic blood pressure 121 mm[Hg] Quita Barney MD Work Phone: [facility] 11-23-2023 08:41-0400 Body height 177.8 cm [facility] 11-23-2023 08:41-0400 Body mass index (BMI) [Ratio] 37.3 kg/m2 [facility] 11-23-2023 08:41-0400 Body weight 117.93 kg [facility] 11-23-2023 08:41-0400 Diastolic blood pressure 75 mm[Hg] [facility] 11-23-2023 08:41-0400 Heart rate 70 /min [facility] 11-23-2023 08:41-0400 Systolic blood pressure 119 mm[Hg] [facility] 11-10-2023 13:41-0400 Body height 177.8 cm [facility] 11-10-2023 13:41-0400 Body mass index (BMI) [Ratio] 37.3 kg/m2 [facility] 11-10-2023 13:41-0400 Body temperature 97.5 [degF] [facility] 11-10-2023 13:41-0400 Body weight 117.93 kg [facility] 11-10-2023 13:41-0400 Diastolic blood pressure 81 mm[Hg] [facility] 11-10-2023 13:41-0400 Heart rate 81 /min [facility] 11-10-2023 13:41-0400 Systolic blood pressure 138 mm[Hg] [facility] 06-30-2023 11:16-0400 Body height 177.8 cm [facility] 06-30-2023 11:16-0400 Body mass index (BMI) [Ratio] 37.1 kg/m2 [facility] 06-30-2023 11:16-0400 Body temperature 97.9 [degF] [facility] 06-30-2023 11:16-0400 Body weight 117.53 kg [facility] 06-30-2023 11:16-0400 Diastolic blood pressure 81 mm[Hg] [facility] 06-30-2023 11:16-0400 Heart rate 71 /min [facility] 06-30-2023 11:16-0400 Systolic blood pressure 136 mm[Hg] [facility] 01-12-2023 10:45-0500 Body height 177.8 cm Cristina Barrios Other [employer] [facility] [employer] Other 01-12-2023 10:45-0500 Body mass index (BMI) [Ratio] 37.16 kg/m2 Cristina Barrios Other [employer] Other 01-12-2023 10:45-0500 Body weight 117.48 kg Cristina Barrios Other [employer] [facility] [employer] Other 01-12-2023 10:45-0500 Diastolic blood pressure 74 mm[Hg] Cristina Barrios Other [employer] Other 01-12-2023 10:45-0500 Systolic blood pressure 116 mm[Hg] Cristina Barrios Other [employer] Other 01-12-2023 09:45-0500 Body height 177.8 cm Cristina Barrios Other [employer] Other 01-12-2023 09:45-0500 Body mass index (BMI) [Ratio] 37.16 kg/m2 Cristina Barrios Other [employer] Other 01-12-2023 09:45-0500 Body weight 117.48 kg Cristina Barrios Other [employer] Other 01-12-2023 09:45-0500 Diastolic blood pressure 74 mm[Hg] Cristina Barrios Other [employer] Other 01-12-2023 09:45-0500 Systolic blood pressure 116 mm[Hg] Cristina Barrios Other [employer] Other 06-06-2022 12:15-0400 Body height 177.8 cm Cristina Barrios Other [employer] Other 06-06-2022 12:15-0400 Body mass index (BMI) [Ratio] 36.44 kg/m2 Cristina Barrios Other [employer] Other 06-06-2022 12:15-0400 Body weight 115.21 kg Cristina Barrios Other [employer] Other 06-06-2022 12:15-0400 Diastolic blood pressure 70 mm[Hg] Cristina Barrios Other [employer] Other 04-07-2023 12:15-0400 SaO2% (BldA) [Mass fraction] 99 % Cristina Barrios Other [employer] Other 06-06-2022 12:15-0400 Systolic blood pressure 124 mm[Hg] Cristina Barrios Other [employer] Other 06-24-2021 16:00-0400 Body height 177.8 cm Daria Lawler Other [employer] Other 06-24-2021 16:00-0400 Body mass index (BMI) [Ratio] 35.87 kg/m2 Daria Lawler Other [employer] Other 06-24-2021 16:00-0400 Body temperature 98.4 [degF] Daria Lawler Other [employer] Other 06-24-2021 16:00-0400 Body weight 113.4 kg Daria Lawler Other [employer] Other 06-24-2021 16:00-0400 Respiratory rate 18 /min Daria Lawler Other [employer] Other 06-24-2021 16:00-0400 SaO2% (BldA) [Mass fraction] 97 % Daria Lawler Other [employer] Other Encounters Encounter Date Encounter Type Care Provider Facility Start: 03-14-2024 End: 03-14-2024 ambulatory SUZE L FLORO Not Available Start: 02-12-2024 End: 02-12-2024 ambulatory SUZE L FLORO Not Available Start: 02-12-2024 End: 02-12-2024 Gynecological examination normal Suze L Floro CN Work Phone: [facility] Start: 02-12-2024 End: 02-12-2024 Periodic preventive med est patient 40-64yrs Suze Somers CNM Work Phone: [facility] Comment on above: Normal gynecologic e xamination; Breast cancer screening by mammogram Start: 12-01-2023 End: 12-01-2023 Loreta Barney MD Work Phone: [facility] Start: 12-01-2023 End: 12-01-2023 Bamboo flowsaarti Barney MD Work Phone: [facility] Start: 12-01-2023 End: 12-01-2023 Office outpatient visit 15 minutes Quita Barney MD Work Phone: [facility] Comment on above: Acute suppurative ot itis media of left ear without spontaneous rupture of tympanic membrane, recurrence not specified (Primary Dx); Chronic mastoiditis of left side; ETD (Eustachian tube dysfunction), left Start: 12-01-2023 End: 12-01-2023 ambulatory QUITA BARNEY Not Available Start: 11-23-2023 End: 11-23-2023 ambulatory [facility] Work Phone: Start: 11-23-2023 End: 11-23-2023 Patient encounter procedure [facility] Work Phone: Start: 11-10-2023 End: 11-10-2023 ambulatory [facility] Work Phone: Start: 11-10-2023 End: 11-10-2023 Patient encounter procedure [facility] Work Phone: Start: 06-30-2023 End: 06-30-2023 ambulatory [facility] Work Phone: Start: 06-30-2023 End: 06-30-2023 Patient encounter procedure [facility] Work Phone: Start: 04-22-2023 End: 04-22-2023 ambulatory [facility] Work Phone: Start: 04-22-2023 End: 04-22-2023 Patient encounter procedure [facility] Work Phone: Start: 02-16-2023 (Televisit) Televisit Cristina Denis F [facility] Start: 02-16-2023 End: 02-16-2023 ambulatory Cristina Barrios Other [employer] Other Start: 02-16-2023 Patient encounter procedure [facility]- Start: 02-13-2023 End: 02-13-2023 ambulatory Cristina Barrios Other [employer] Other Start: 02-13-2023 Telephone encounter Cristina Denis [facility] Start: 01-15-2023 End: 01-15-2023 ambulatory Cristina Barrios Other [employer] Other Start: 01-15-2023 Telephone encounter Cristina Denis [facility] Start: 01-12-2023 End: 01-12-2023 ambulatory Cristina Denis Other [employer] Other Start: 01-12-2023 Office outpatient vi sit [address] [facility] Start: 12-08-2022 End: 12-08-2022 ambulatory Stephanie Hobson Other [employer] Other Start: 12-08-2022 Telephone encounter Stephanie Hobson [facility] [place] Start: 12-06-2022 End: 12-06-2022 ambulatory Stephanie Hobson Facility: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 Start: 06-18-2022 End: 06-18-2022 ambulatory Cristina Barrios Other [employer] Other Start: 06-18-2022 Telephone encounter Cristina Barrios [facility] Start: 06-09-2022 End: 06-09-2022 ambulatory Cristina Barrios Other [employer] Other Start: 06-09-2022 Telephone encounter Cristina Barrios [facility] Start: 06-06-2022 End: 06-06-2022 ambulatory Cristina Barrios Other [employer] Other Start: 06-06-2022 Office outpatient vi sit [address] [facility] Start: 02-17-2022 Adult health examination Rebeca Hobson Other [employer] Other Start: 02-17-2022 Gynecological examination normal Stephanie Hobson Other [employer] Other Start: 02-17-2022 End: 02-18-[address] EVAN BENITEZ Facility:[facility] Start: 01-27-2022 End: 01-27-[address] EVAN BENITEZ Facility:[facility] Start: 01-10-2022 End: 01-10-2022 ambulatory Cristina Barrios Facility:[facility] Start: 01-10-2022 End: 01-10-2022 ambulatory MD Cristina Barrios Work Phone: [facility] Work Phone: Start: 01-10-2022 End: 01-10-2022 Patient encounter procedure MD Cristina Barrios Work Phone: [facility] [address] Start: 01-07-2022 End: 01-07-[address] CRISTINA BARRIOS Facility:[facility] Start: 07-03-2021 End: 07-04-2021 ambulatory JEMAL MCMAHON Facility:[facility] Start: 06-24-2021 End: 06-24-2021 ambulatory Daria Lawler Other [employer] Other Start: 06-24-2021 Office outpatient ne w 20 minutes Daria Lawler [facility] [place] Start: 06-08-2018 Pre-procedure evalua tion check Stephanie Hobson Other [employer] Other Start: 05-11-2018 End: 05-12-2018 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 Facility:[facility] Procedures Date Procedure Procedure Detail Performing Clinician Start: 02-20-2023 Mammography Quita ross MD Work Phone: Start: 01-10-2022 Diagnostic radiograp hy of abdomen MD Cristina Barrios Work Phone: Start: 12-17-2006 Contraception care education Stephanie Hobson Other Start: 12-17-2006 visit Stephanie Hobson Other Hysterectomy Stephanie Hobson Other Screening for malign ant neoplasm of breast Stephanie Hobson Other Plan of Treatment Date Care Activity Detail Author Start: 02-16-2025 End: 02-16-2025 Patient encounter procedure 02/16/2025 1:00 PM EST Office Visit [facility] [address] [place] [address] Suze Somers, GREGORIAM [address] [place] [address] [facility] Start: 08-18-2024 End: 08-18-2024 Patient encounter procedure 08/18/2024 11:00 AM EDT Office Visit [facility] [address] [place] [phone] Jemal Mcmahon MD [address] [place] [address] [facility] Start: 03-14-2024 End: 03-14-2024 Professional / ancillary services management 03/14/2024 3:30 PM EST Ancillary Procedure [facility] [address] [phone] [facility] Start: 02-21-2024 Screening for malignant neoplasm of breast Mammogram [facility] Start: 02-12-2024 End: 04-14-2025 DBT Breast - bilateral screening Bilateral screening mammogram with tomosynthesis Imaging Routine Breast cancer screening by mammogram Expected: 02/12/2024, Expires: 04/14/2025 [facility] Work Phone: Comment on above: Expected: 02/12/2024 , Expires: 04/14/2025 Start: 02-04-2024 End: 02-04-2024 Patient encounter procedure 02/04/2024 11:00 AM EST Office Visit [facility] [address] [place] [phone] Suze Somers CN [address] [place], [place] [id number] [facility] Start: 12-01-2023 End: 12-01-2023 Patient encounter procedure 12/01/2023 1:40 PM EDT Office Visit [facility] [address] [facility] [address] [place] [phone] Quita Barney MD [address] [facility] [address] [place] [address] Arrived [facility] Comment on above: Arrived Start: 11-23-2023 Patient referral [facility] Work Phone: Start: 11-01-2023 Influenza vaccination Influenza Vacc ine (#1) [facility] Start: 12-06-2022 Bacteria identified in Urine by Culture [facility] Start: 2010 Screening for malignant neoplasm of cervix [facility] Start: 2001 Screening for malignant neoplasm of cervix Pap Smear [facility] Patient referral [facility] Work Phone: Immunizations Immunization Date Immunization Notes Care Provider Fa cili 03-11-2021 influenza virus vaccine, unspecified formulation Quita Barney MD Work Phone: [facility] 12-28-2019 influenza virus vaccine, split virus (incl. purified surface antigen) Stephanie Hobson Other [employer] Other 12-28-2019 influenza virus vaccine, unspecified formulation [facility] 12-15-2013 tetanus and diphther ia toxoids, adsorbed, preservative free, for adult use (5 Lf of tetanus toxoid and 2 Lf of diphtheria toxoid) Stephanie Hobson Other [facility] Payers Date Payer Category [facility] [id number] 2022 Unknown 1980 Unknown [id number] 647 1980 Unknown [id number]. 593 1980 Unknown [id number] [id number]. 593 1980 Unknown [id number] [id number]. 593 1980 Unknown [id number] [id number]. 593 1980 Unknown [id number] [id number]. 1259 1980 Unknown [id number] [id number]. 1259 1980 Unknown [id number] [id number]. 1259 1959 [facility] [id number] Medicaid Medicaid [id number] Private Health Insurance [facility] [id number] Self-pay Self Pay [id number] Unknown [place] BC/BS [place] [id number] 2 [id number] Social History Date Type Detail Facility Start: 02-02-2023 End: 02-12-2024 Sex Assigned At [employer] Other Start: 1980 Sex Assigned At Female [facility] Start: 02-02-2023 End: 02-16-2023 Tobacco smoking status NHIS Never smoked tobacco (finding) [facility] Start: 12-04-2023 Tobacco use and exposure Smokeless tobacco non-user [facility] Start: 02-02-2023 End: 02-12-2024 Alcoholic beverage intake Ex-drinker (finding) [facility] Start: 02-02-2023 End: 02-12-2024 History of Social function [facility] Start: 01-13-2023 Alcohol Comment Occasional alcohol use. Caffeine: 1-2 cups per day [facility] Start: 08-21-2022 Gender identity Identifies as female gender (finding) [facility] Start: 08-21-2022 Sexual orientation Heterosexual (finding) [facility] Clinical Notes 06-14-2021 to 02-12-2024 Suze Somers CNM - 02/12/2024 1:00 PM Fartun Barney MD - 12/01/2023 1:40 PM EDT Note Date & Type Note Facility 02-12-2024 History of Presen t illness Narrative YEARLY HPI: This is a established patient. Chief Complaint Patient presents with Gynecologic Exam Here for annual exam. 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: no Changes in healthsince last visit: no Surgeries or hospitalizations since last visit: no control method: hysterectomy Menses: Last pap: 01/27/22 Other: History: Past Medical History: Diagnosis Date A-fib (CMS/HCC) Acute asthmatic bronchitis (CMS/HCC) Ankle instability, right Atrial fibrillation, unspecified type (CMS/HCC) BMI 36.0-36.9,adult Breast cancer screening by mammogram Cavovarus deformity of foot, acquired, right Contracture of ankle Environmental and seasonal allergies Equinus contracture of right ankle ETD (Eustachian tube dysfunction), left Family history of breast cancer in mother GERD without esophagitis Graves disease (CMS/HCC) Hordeolum externum of left lower eyelid emt intermediate (current) use of 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 Mild persistent asthma, uncomplicated (CMS/HCC) Other seborrheic keratosis Pain in joint of right ankle Patient's intentional underdosing of medication regimen due to financial hardship Peroneal tendinitis, right Unspecified asthma, uncomplicated (CMS/HCC) Past Surgical History: Procedure Laterality Date COLONOSCOPY 2018 HEEL SPUR EXCISION 2000 heel surgery, r/o bone spur LAPAROSCOPIC HYSTERECTOMY 2017 PLANTAR FASCIA RELEASE WISDOM TOOTH EXTRACTION 2000 wisdom teeth Family History Problem Relation Name Age of Onset Asthma Mother severe Other (FM) Mother Deep vein thrombosis Mother Breast cancer Mother Hypertension Father Diabetes Father Arthritis Father Hyperlipidemia Father Cervical cancer Sister Heart disease Maternal Grandmother Lung cancer Maternal Grandfather Heart disease Paternal Grandmother Allergies: Allergies Allergen Reactions Cephalosporins Itching Other Reaction(s): CEPHALOSPORINS, Unknown Trimethoprim Other Reaction(s): Dizziness, itching Cephalexin Hives and Rash Sulfa Antibiotics Rash Sulfamethoxazole-Trimethoprim Itching and Rash Medications: Current Outpatient Medications on File Prior to Visit Medication Sig Dispense Refill cetirizine (ZyrTEC) 10 MG tablet Take 5 mg by mouth fluticasone (Flonase) 50 MCG/ACT nasal spray Administer 1 spray into each nostril Daily Shake gently. Before first use, prime pump. After use, clean tip and replace cap. levothyroxine (Synthroid, Levoxyl) 125 MCG tablet Take 125 mcg by mouth 1 (one) time each day at the same time [DISCONTINUED] cholecalciferol (Vitamin D3) 25 MCG (1000 UT) tablet 1 (one) time each day at the same time No current facility-administered medications on file prior to visit. ROS: Review of Systems All other systems reviewed and are negative. There were no vitals filed for this visit. Physical exam: Physical Exam Vitals reviewed. Constitutional: Appearance: Normal appearance. HENT: Head: Normocephalic. Right Ear: Tympanic membrane normal. Left Ear: Tympanic membrane normal. Mouth/Throat: Mouth: Mucous membranes are moist. Eyes: Pupils: Pupils are equal, round, and reactive to light. Cardiovascular: Rate and Rhythm: Normal rate and regular rhythm. Pulses: Normal pulses. Heart sounds: Normal heart sounds. Pulmonary: Effort: Pulmonary effort is normal. Breath sounds: Normal breath sounds. Chest: Breasts: Right: Normal. Left: Normal. Abdominal: General: Abdomen is flat. Bowel sounds are normal. Palpations: Abdomen is soft. Tenderness: There is no abdominal tenderness. Genitourinary: General: Normal vulva. Exam position: Lithotomy position. Vagina: Normal. No tenderness. Cervix: Normal. No cervical motion tenderness. Uterus: Normal. Adnexa: Right adnexa normal and left adnexa normal. Comments: Normal pap in 2021, bimanual exam performed today Musculoskeletal: General: Normal range of motion. Cervical back: Normal range of motion and neck supple. Skin: General: Skin is warm and dry. Neurological: General: No focal deficit present. Mental Status: She is alert and oriented to person, place, and time. Psychiatric: Mood and Affect: Mood normal. Assessment and Plan: 1. Annual exam 2. SBE discussed: Yes 3. Diet and exercise discussed: Yes 4. Wt control discussed: No 5. Safe sex discussed: No Sahara was seen today for gynecologic exam. Diagnoses and all orders for this visit: Breast cancer screening by mammogram - Bilateral screening mammogram with tomosynthesis; Future Normal gynecologic examination No follow-ups on file. There are no Patient Instructions on file for this visit. Luz Maria Guillory MA, 02/12/2024 1:05 PM documented in this encounter [facility] 12-01-2023 History of Presen t illness Narrative Subjective Patient ID: Sahara Gipson is a 43 y.o. female who presents for Ear Problem (O) and Otitis Media (Ear infection) Pt developed left ear pain and hearing loss 3 weeks ago along with throat pain. Tx witn amox. Ear pain and HL improved, but fullness persists. Also prescribed doxy, but has not filled. Family History Problem Relation Name Age of Onset Asthma Mother severe Other (FM) Mother Deep vein thrombosis Mother Breast cancer Mother Hypertension Father Diabetes Father Arthritis Father Hyperlipidemia Father Cervical cancer Sister Heart disease Maternal Grandmother Lung cancer Maternal Grandfather Heart disease Paternal Grandmother Active Ambulatory Problems Diagnosis Date Noted No Active Ambulatory Problems Resolved Ambulatory Problems Diagnosis Date Noted No Resolved Ambulatory Problems Past Medical History: Diagnosis Date A-fib (CMS/HCC) Acute asthmatic bronchitis (CMS/HCC) Ankle instability, right Atrial fibrillation, unspecified type (CMS/HCC) BMI 36.0-36.9,adult Breast cancer screening by mammogram Cavovarus deformity of foot, acquired, right Contracture of ankle Environmental and seasonal allergies Equinus contracture of right ankle ETD (Eustachian tube dysfunction), left Family history of breast cancer in mother GERD without esophagitis Graves disease (CMS/HCC) Hordeolum externum of left lower eyelid emt intermediate (current) use of 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 Mild persistent asthma, uncomplicated (CMS/HCC) Other seborrheic keratosis Pain in joint of right ankle Patient's intentional underdosing of medication regimen due to financial hardship Peroneal tendinitis, right Unspecified asthma, uncomplicated ([facility]) Past Surgical History: Procedure Laterality Date COLONOSCOPY 2018 HEEL SPUR EXCISION 2000 heel surgery, r/o bone spur LAPAROSCOPIC HYSTERECTOMY 2017 PLANTAR FASCIA RELEASE WISDOM TOOTH EXTRACTION 2000 wisdom teeth Allergies Allergen Reactions Cephalosporins Itching Other Reaction(s): CEPHALOSPORINS, Unknown Trimethoprim Other Reaction(s): Dizziness, itching Cephalexin Hives and Rash Sulfa Antibiotics Rash Sulfamethoxazole-Trimethoprim Itching and Rash Current Outpatient Medications on File Prior to Visit Medication Sig Dispense Refill fluticasone (Flonase) 50 MCG/ACT nasal spray Administer 1 spray into each nostril Daily Shake gently. Before first use, prime pump. After use, clean tip and replace cap. levothyroxine (Synthroid, Levoxyl) 125 MCG tablet Take 125 mcg by mouth 1 (one) time each day at the same time cetirizine (ZyrTEC) 10 MG tablet Take 5 mg by mouth cholecalciferol (Vitamin D3) 25 MCG (1000 UT) tablet 1 (one) time each day at the same time No current facility-administered medications on file prior to visit. Objective Last Recorded Vitals Vitals: 12/01/23 1342 BP: 121/71 ENT Physical Exam Constitutional Appearance: patient appears well-developed, well-nourished and well-groomed, Communication/Voice: communication appropriate for developmental age; vocal quality normal; Ear Ear Canals: right ear canal normal; left ear canal normal; Tympanic Membranes: right tympanic membrane normal; left tympanic membrane normal; Ear comments: August tymps normal Nose External Nose: nares patent bilaterally; external nose normal; Internal Nose: nasal mucosa normal; septum normal; bilateral inferior turbinates normal; Oral Cavity/Oropharynx Lips: normal; Teeth: normal; Gums: gingiva normal; Tongue: normal; Oral mucosa: normal; Hard palate: normal; Assessment/Plan Diagnoses and all orders for this visit: Acute suppurative otitis media of left ear without spontaneous rupture of tympanic membrane, recurrence not specified Chronic mastoiditis of left side ETD (Eustachian tube dysfunction), left Normal otologic exam today. Hx c/w AOM that has resolved leaving mastoid fluid. This will cause prolonged ear fullness in an adult after OM. It should resolve in time without further tx documented in this encounter [facility] 02-16-2023 Evaluation note Encounter Date Diagnosis Assessment Notes Jan, Acute pharyngitis, unspecified etiology (ICD-10 - J02.9) Finish antibiotics as prescribed. Rest, fluids, call if symptoms continue [employer] Other 11-13-2023 Evaluation note* Encounter Date Diagnosis Assessment Notes Treatment Notes Treatment Clinical Notes Dec, PAULINE (obstructive sleep apnea) (ICD-10 - G47.33) Order to [facility] sleep disorder center completed - loud snorking obesity, fatigue and gasping at night. Order and note faxed to their office. [employer] Other 11-13-2023 Evaluation note* Encounter Date Diagnosis Assessment Notes Treatment Notes Treatment Clinical Notes Dec, PAULINE (obstructive sleep apnea) (ICD-10 - G47.33) Order to [facility] sleep disorder center completed - Her signs and symptoms are: loud snoring, obesity, fatigue and gasping at night. Order and note faxed to their office. [employer] Other 04-15-2023 History general Narrative - Reported* Type Description Date Medical History graves disease Medical History BROWN 14.2 mCI 06/14 Medical History hypothyroidism, post ablative Medical History Pain in right ankle Medical History Mild persistent allergic asthma without complication Medical History Chronic GERD Surgical History oral surgery Surgical History RT heel surgery Surgical History HYSTERECTOMY Surgical History LEFT OVARY REMOVED Hospitalization History child X's 2 [employer] Other 04-07-2023 Evaluation note* Encounter Date Diagnosis Assessment Notes Treatment Notes Treatment Clinical Notes May, Pain in right ankle and joints of right foot (ICD-10 - M25.571) Pt agrees to ortho referral. [facility] would be closest. Discussed home exercises and treatment for plantar fasciitis. May, Right upper quadrant abdominal pain (ICD-10 - R10.11) 5 months of intermittent RUQ pain - KUB was normal (neg for stone) will pursue GB US. [employer] Other 04-25-2022 Evaluation note* Encounter Date Diagnosis Assessment Notes Treatment Notes Treatment Clinical Notes May, Acute sinusitis, recurrence not specified, unspecified location (ICD-10 - J01.90) Drink plenty fluids, get plenty of rest. Continue your Z-Tera as prescribed. Use the Flonase inhaler as prescribed until symptoms improve. Follow-up with your family physician if no improvement in 2 to 3 days. [employer] Other 04-15-2022 History general Narrative - Reported* Type Description Date Medical History graves disease Medical History BROWN 14.2 mCI 06/14 Medical History hypothyroidism, post ablative Surgical History oral surgery Surgical History RT heel surgery Hospitalization History child X's 2 [employer] Other Evaluation noteNo assessment information available [facility] Work Phone: [facility]No [facility] [employer] Other Evaluation note* Diagnosis Onset Date Resolution Status Sinusitis, acute maxillary a cute [facility] Work Phone: Evaluation note* Diagnosis Onset Date Resolution Status Sinusitis, acute maxillary a cute Chronic otitis media of left ear with effusion acute [facility] Work Phone: Evaluation note* Diagnosis Acute suppurative otitis media of left ear without spontaneous rupture of tympanic membrane, recurrence not specified- Primary Chronic mastoiditis of left side ETD (Eustachian tube dysfunction), left [facility] Diagnosis Normal gynecologic examination Breast cancer screening by mammogram [facility] Narrative - Reported* Type Description Date Medical History graves disease Medical History BROWN 14.2 mCI / Medical History hypothyroidism, post ablative Medical History Pain in right ankle Medical History Mild persistent allergic asthma without complication Medical History Chronic GERD Surgical History oral surgery Surgical History RT heel surgery Surgical History HYSTERECTOMY Surgical History LEFT OVARY REMOVED Hospitalization History child X's 2 [facility] [employer] Other History general Narrative - Reported* Type Description Date Medical History graves disease Medical History BROWN 14.2 mCI 06/14 Medical History hypothyroidism, post ablative Medical History Pain in right ankle Medical History Mild persistent allergic asthma without complication Medical History Chronic GERD Surgical History oral surgery Surgical History RT heel surgery Surgical History HYSTERECTOMY Surgical History LEFT OVARY REMOVED Surgical History Right plantar fasciitis surgery 11/2022 Hospitalization History child X's 2 [facility] [employer] Other Hospital Discharge instructionsAmbulatory Orders* Referral to ENT Time Frame: 11/23/23, Location: None [facility] Work Phone: Summary Purpose Family History No Family History Records Found Relationship Condition Age at Onset Recorded Date/T rolo brother Unknown father Diabetes mellitus Unknown Hypertension Unknown family member Unknown Not Specified Malignant neoplasm Unknown sister History of malignant neoplasm of cervix U nknown Malignant neoplasm Unknown Unknown Relationship Condition Age at Onset Recorded Date/T rolo brother Unknown father Diabetes mellitus Unknown Hypertension Unknown family member Unknown mother Malignant neoplasm Unknown sister History of malignant neoplasm of cervix U nknown Malignant neoplasm Unknown Unknown Advance Directives No Advanced Directives Records Found Advance Directive Response Recorded Date/ Time Advance Directives No April 12:22pm Advance Directive Response Recorded Date/ Time Advance Directives No April 1:22pm Chief Complaint and Reason for Visit Chief Complaint R10.9 Chief Complaint Dysuria Chief Complaint sinus infection Chief Complaint sinus infection ear infection - sinus infection Reason for Visit Sinusitis, acute max illary Chief Complaint Ear Infection, Heada charu Chief Complaint Ear Infection, Heada charu ear fullness Reason for Visit Sinusitis, acute max illary Chronic otitis media of left ear with effusion Reason for Referral Reason [facility]. Former pt of [facility]. Insurance will not cover podiatry. R lateral ankle pain and likely plantar fasciitis. Diagnosis 1 Pain in right ankle and joints of right foot (M25.571) Referral Organization [facility] Referring Provider First Name Cristina Referring Provider Last Name Denis Referring Provider Specialty Family [facility] Referred Organization [facility] Referred Provider Weston Dumont Referred Address ,[place], [place],[address] Referred Provider Specialty Orthopedic S urgery Referral Priority Routine Additional Source Comments INFORMATION SOURCE (unrecogn ized section and content) DATE CREATED AUTHOR 05/12/2018 [facility] DATE CREATED AUTHOR AUTHOR'S ORGANIZ ATION 02/26/2022 [facility] DATE CREATED AUTHOR AUTHOR'S ORGANIZ ATION 12/09/2022 [facility] DATE CREATED AUTHOR AUTHOR'S ORGANIZ ATION 03/20/2024 [facility] EPIC REASON FOR VISIT (unrecogniz ed section and content) Reason Comments Ear Problem O Otitis Media Ear infection Reason Comments Gynecologic Exam Care Teams (unrecognized sec tion and content) Team Status: Inactive Member Role Status Dates Cristina Barrios MD Primary Care Provider, Attending Mariia dickens Active Team Status: Active Member Role Status Dates Cristina Barrios MD Primary Care Provider Active Team Status: Inactive Member Role Status Dates Stephanie Hobson APRN Attending Provider Active Team Status: Active Member Role Status Dates PHYSICIAN NO FAMILY Primary Care Provider Active Team Status: Active Member Role Status Dates Provider Conversion Attending Provider Active St art: February 16, 2023 Team Status: Inactive Member Role Status Dates PHYSICIAN NO FAMILY Primary Care Provider Active Start: April 22, 2023 End: April 22, 2023 Cristina Barrios MD Attending Provider Active St art: April 22, 2023 End: April 22, 2023 Team Status: Inactive Member Role Status Dates Cristina Barrios MD Primary Care Provide r, Attending Provider Active Start: June 30, 2023 End: June 30, 2023 Team Status: Inactive Member Role Status Dates Cristina Barrios MD Primary Care Provide r, Attending Provider Active Start: November 10, 2023 End: November 10, 2023 Team Status: Inactive Member Role Status Dates Cristina Barrios MD Primary Care Provide r, Attending Provider Active Start: November 23, 2023 End: November 23, 2023 [employer] Relationship Specialty Start Date End Date Cristina Barrios MD [address] [place] [address] PCP - General Family Medicine 11/25/23 [employer] Relationship Specialty Start Date End Date Cristina Barrios MD [address] [place] [phone] PCP - General Family Medicine 11/25/23 [employer] Relationship Specialty Start Date End Date Cristina Barrios MD [address] [place] [phone] PCP - General Family Medicine 11/25/23 Goals (unrecognized section and content) Goals may be documented in a n alternate section FOR RECORDS PERTAINING TO PATIENTS WHO ARE OR HAVE BEEN ENROLLED IN A CHEMICAL DEPENDENCY/SUBSTANCEABUSE PROGRAM, SOME INFORMATION MAY BE OMITTED. This clinical summary was aggregated from multiple sources. Caution should be exercised in using it in the provision of clinical care. This summary normalizes information from multiple sources, and as a consequence, information in this document may materially change the coding, format and clinical context of patient data. In addition, data may be omitted in some cases. CLINICAL DECISIONS SHOULD BE BASED ON THE PRIMARY CLINICAL RECORDS. [employer] provides no warranty or guarantee of the accuracy or completeness of information in this document.
== END 2024-04-28 10:51 | disposition home or self-care (01) ==
PROVIDERS: PCP Family Medicine; Visit Provider Family Medicine
DX: M25.532 Pain in left wrist (principal)
CPT/HCPCS: 73110

== ENCOUNTER 2024-08-12 17:50 | Outpatient (OUT) | payer BC, SELFPAY ==
--- OUTSIDE RECORDS SUMMARY | 2019-01-21 06:00 | XMS_ITS | Continuity of Care Document ---
Author Organization 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 Automatic Name Role Phone higinio PITTMANAnushka Unavailable Unavailabl e Allergies, Adverse Reactions, Alerts Substance Reaction Status Criticality trimethoprim Active No Information sulfamethoxazole Active No Informat ion cephalexin Active No Information Medications Medication Instructions Dosage Effective Dates (start - stop) Status Comments liothyronine 25 mcg tablet take 1 tablet by oral route every day 25 MCG - Active Flovent Diskus 50 mcg/actuation powder for inhalation inhale 2 puff by inhalation route 2 times every day - Active Folgard 2,000 unit-800 mcg-0.32 mg tablet - Active Tirosint 112 mcg capsule take 1 capsule by oral route every day 112 MCG - Active Zyrtec 10 mg capsule - Active amoxicillin 250 mg capsule take 1 capsule by oral route every 8 hours 250 MG - No Longer Active Cartia XT 120 mg capsule,extended release take 1 capsule by oral route every day 120 MG - No Longer Active Aspirin Low Dose 81 mg tablet,delayed release take 1 tablet by oral route every day 81 MG - No Longer Active Procedures Procedure Date Prophylaxis Adult [employer] [place] Dis Dec Oral Hygiene Instruction Bitewings Four Films Prophylaxis Adult Periodic Oral Eval Estab Patient 2018 [employer] [place] Dis May Oral Hygiene Instruction Prophylaxis Adult [employer] [place] Dis Nov Oral Hygiene Instruction Prophylaxis Adult Treatment Completed Intraoral-complete Series (bw) 18 Tobacco Counseling Oral Hygiene Instruction Comp Oral Eval New/estab Patient 2017 Advance Directives Directive Yes / No Effective Date File Name No Information Encounters Encounter Description Practice Location Reason(s) For Visit Diagnoses Date Provider Providers Copied on Encounter [facility], [address] [place] [address], [id number] , [place] tel:[phone] Dental Clinic Prophy (chief complaint) [facility] [address] [place] [address], [id number], [place]. tel:[phone] [facility], [address] [place] [address], [id number] , [place] tel:[phone] Dental Clinic En[facility] for [facility] for [facility] [address] [place] [address], [id number], [place]. tel:[phone] [facility], [address] [place] [address], [id number] , [place] tel:[phone] Dental Clinic Prophy (chief complaint) Encounter for screening for dental disorders 8 [facility]. [address] [place] [address], [id number], [place]. tel:[phone] [facility], [address] [place] [address], [id number] , [place] tel:[phone] Dental Clinic prophy (chief complaint) Encounter for screening for dental disorders 8 Sivasankaraganesan DMD Deepasulochana. [address] [place] [address], [id number], [place]. tel:[phone] [facility], [address] [place] [address], [id number] , [place] tel:[phone] Dental Clinic Encounter for screening for dental disorders 8 Jose Odell. [address] [place] [address], [id number], [place]. tel:[phone] Family History Family Member Type Diagnosis Age At Onset Father Problem (finding) hypertension Mother Problem (finding) Breast Cancer Father Problem (finding) Sleep apnea Mother Problem (finding) asthma Father Problem (finding) Diabetes mellitus Father Problem (finding) Carotoid surgery Payers Payer name Insurance type Covered republican ID Divina francis(s) D Medicaid [facility] [id number] Social History Type Description Quantity Date Captured Comments Alcohol Use Details Unknown Caffeine Use Details Unknown Tobacco Use Status Current non-smoker 19 Smoking Status Never smoker Non-Smoking Tobacco Use Details : No Details Available : No Details Available Sex Female Sexual Orientation Straight or heterosexual Gender Identity Female Vital Signs Date / Time: Height Weight BMI Pulse Rate Blood Pressure Temperature Respiratory Rate Body Surface Area Head Circumference Head Circ. Percentile Wt./Alonzo. Percentile BMI percentile Pulse Ox Inhaled Ox 10:00 AM 82 /min 111/70 mm[Hg] Chief Complaint And Reason For Visit From encounter dated '01/21/2019 10:00'. Prophy (chief complaint). Description: Prophy Reason For Referral Reason For Referral No Information History Of Present Illness Encounter Date Complaint History Of Prese nt Illness Prophy Prophy Prophy Prophy prophy Functional Status Date Functional Assessmen t No Information Instructions Date Instruction Additional Infor mation No Information Assessments Type Assessment Date assessment Encounter for screening for dent al disorders Patient Care Teams Name Effective Dates (start - stop) Status Members No Information
--- OUTSIDE RECORDS SUMMARY | 2023-02-26 09:20 | XMS_ITS ---
Author Organization [facility] in [place] Address [address] [place] [address] Care Team Providers Care Bowling Floor Desk Clerk Name Role Phone None, Unknown or Primary Care Provider Unavailab jacob Kim Rogel Unavailable [phone] Allergies Allergen (clinical drug ingredient) Drug/Non Drug Allergy documented on EMR Reaction Allergy Type Onset Date Status naldacon (uncoded) swelling, facial Allergy Active sulfamethoxazole / trimethoprim Bactrim dizziness, rash Drug Allergy Active Medicinal cephalosporin and acting as antibacterial agent (FN) Cephalosporins itching Drug Allergy Active REASON FOR VISIT 6 week f/u Medications Medication SIG (Take, Route, Frequency, Duration) Notes Start Date End Date Status LORazepam 1 MG 1 tablet Orally Once a day for 1 days Patient is to take 1 tablet by mouth prior to arrival at hospital for surgical procedure with small sip of water 12/04/2022 Active Ventolin HFA 108 (90 Base) MCG/ACT 1 puff as needed Inhalation every 4 hrs Active Levothyroxine Sodium 125 MCG 1 tablet in the morning on an empty stomach Orally Once a day Active ZyrTEC 10 MG 1 tablet Orally Once a day Active Vitamin D 25 MCG (1000 UT) 1 tablet Orally Once a day Active Social History Tobacco Use: Social History Observation Description Date Details (start date - stop date) Never Smoker NA - NA Tobacco Use/Smoking Question Answer Notes Patient is a nonsmoker Vital Signs Temperature 96.4 degrees Fahrenheit 02/27/20 23 Heart Rate 68 /min 02/26/2023 Respiratory Rate 18 /min 02/26/2023 Height 69 in 02/26/2023 Weight 256 lbs 02/26/2023 BMI 37.8 kg/m2 02/26/2023 Encounters Encounter Location Date Provider Diagnosis [facility] (PODIATRY) [address] [place] [address] [place] [address] 02/26/2023 Kim Rogel Contracture, right ankle M24.571 and Plantar fascial fibromatosis M72.2 Assessments Encounter Date Diagnosis (ICD Code) Assessment Notes Treatment Notes Treatment Clinical Notes Section Notes 02/26/2023 Contracture, right ankle (ICD-10 - M24.571) The patient is 12 weeks status post right endoscopic plantar fasciotomy and gastrocnemius recession, DOS: 12/08/22. She is progressing as expected. No evidence of infection or deep vein thrombosis on examination. She may continue to increase activities in normal shoes Without restrictions Pkhs-ugz-lxtljje analgesia and wrist therapy advised for pain and swelling. She states her pain level is at least 75 percent improved since before surgery. She may follow up with us as needed. 02/26/2023 Plantar fascial fibromatosis (ICD-10 - M72.2) Plan Of Treatment Treatment Notes Assessment Notes Contracture, right ankle The patient is 12 weeks status post right endoscopic plantar fasciotomy and gastrocnemius recession, DOS: 12/08/22. She is progressing as expected. No evidence of infection or deep vein thrombosis on examination. She may continue to increase activities in normal shoes Without restrictions Ybvt-ykz-aukonar analgesia and wrist therapy advised for pain and swelling. She states her pain level is at least 75 percent improved since before surgery. She may follow up with us as needed. Next Appt Details Follow Up: prn, Reason: Progress Notes * LEONELANoemy MckinleyOB:1980 (42 yo F)Acc No.[id number]:02/26/2023 Follow Up Patient: Sahara Sandoval Provider: Majo Rogel PA-C :1980 A ge:42 Y S ex:Female Date:02/26/2023 Address:[address] [place], [place] [id number] Pcp:Unknown or None Check In:01:11 PM ESTCheck O ut:01:44 PM EST Subjective: * Chief Complaints: * 6 week f/u * HPI: P odiatry HPI: Surgical Procedure: p ost op right endoscopic plantar fasciotomy and gastroc recession DOS 12/08/22. Pt states that still sore first thing when gets up in the morning. Discomfort mainly in right arch and heel areas rates pain 1/10 now and at worse 4/10. States is 75% better all together since surgical procedure. wearing normal shoes. Post-Op Site Complications: n one. Post-Op Immobilization Method(s): n ormal shoes. Weight-bearing Status: 1 00 percent weight-bearing. 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 Mcghee * Hospitalization/Major Diagno stic Procedure: D enies Past Hospitalization * Family History: F ather: High cholesterol, diagnosed with Diabetes, Hypertension. M other: breast cancer, asthma, DVT, osteoporosis, diagnosed with Cancer. S ister(s): , cervical cancer, diagnosed with Cancer. family history of allergies. * Social History: T obacco Use: T obacco Use/Smoking P atient is a n onsmoker * Medications: T akingLevothyroxine Sodium 125 MCG Tablet 1 tablet in the morning on an empty stomach Orally Once a dayLORazepam 1 MG Tablet 1 tablet Orally Once a day, Notes: Patient is to take 1 tablet by mouth prior to arrival at hospital for surgical procedure with small sip of waterVentolin HFA(Albuterol Sulfate HFA) 108 (90 Base) MCG/ACT Aerosol Solution 1 puff as needed Inhalation every 4 hrsVitamin D 25 MCG (1000 UT) Tablet 1 tablet Orally Once a dayZyrTEC(Cetirizine HCl) 10 MG Tablet Chewable 1 tablet Orally Once a dayMedication List reviewed and reconciled with the patientTaking Levothyroxine Sodium 125 MCG Tablet 1 tablet in the morning on an empty stomach Orally Once a dayTaking LORazepam 1 MG Tablet 1 tablet Orally Once a day, Notes: Patient is to take 1 tablet by mouth prior to arrival at hospital for surgical procedure with small sip of waterTaking Ventolin HFA(Albuterol Sulfate HFA) 108 (90 Base) MCG/ACT Aerosol Solution 1 puff as needed Inhalation every 4 hrsTaking Vitamin D 25 MCG (1000 UT) Tablet 1 tablet Orally Once a dayTaking ZyrTEC(Cetirizine HCl) 10 MG Tablet Chewable 1 tablet Orally Once a dayMedication List reviewed and reconciled with the patient * Allergies: C ephalosporins: itchingBactrim: dizziness, rashnaldacon: swelling, facialno[Allergies Verified] Objective: * Vitals: W t:256 lbs, Ht: 69 in, Temp:96.4 F, HR:68 /min, RR:18 /min, BMI:37.8 Index, Pain scale:1 1-10, Ht-cm: 175.26 cm, Wt-k.12 kg. * Examination: P odiatry Examination: SKIN: s kin intact, n o sign of infection. MUSCULOSKELETAL: N o pain on palpation, Range of motion of ankle and foot is within normal limits, Muscle strength is 5/5 in all planes. NEUROLOGICAL: L ight touch sensation is intact in all nerve distributions, Negative Tinel sign. VASCULAR: P alpable pedal pulses bilaterally, No swelling, No calf pain on squeeze. Assessment: * Assessment: 1. C ontracture, right ankle - M24.571 (Primary) 2 . P lantar fascial fibromatosis - M72.2 Plan: * Treatment: * Procedure Codes: * Preventive Medicine: Screenings/Counseling: B TN ACTION PLAN Above Normal BMI Follow-up D ietary management education, guidance, and counseling F ALL RISK SCREENING Fall Risk Assessment: N o falls in the past year * Follow Up: p rn * * Sign off status: Completed Visit Status: C HK (Check Out) true * Provider: Majo Rogel PA-C Date: 1 04/29/2022 Generated for Chelsie herrera/Tae/Eamonitting on: 0 08/12/2024 01:43 PM EDT History and Physical Notes * HPI (History of Present Illness) Category Sub-Category Detail Notes Category Not es Podiatry HPI Surgical Procedure: post op righ t endoscopic plantar fasciotomy and gastroc recession DOS 12/08/22. Pt states that still sore first thing when gets up in the morning. Discomfort mainly in right arch and heel areas rates pain 1/10 now and at worse 4/10. States is 75% better all together since surgical procedure. wearing normal shoes Post-Op Site Complications: none Post-Op Immobilization Method(s): normal shoes Weight-bearing Status: 100 percent weigh t-bearing Examination Category Sub-Category Detail Notes Category Not es Podiatry Examination SKIN: skin intact, no sign of infection MUSCULOSKELETAL: No pain on palpation , Range of motion of ankle and foot is within normal limits, Muscle strength is 5/5 in all planes NEUROLOGICAL: Light touch sensatio n is intact in all nerve distributions, Negative Tinel sign VASCULAR: Palpable pedal pulse s bilaterally, No swelling, No calf pain on squeeze
--- OUTSIDE RECORDS SUMMARY | 2024-08-12 17:52 | XMS_ITS | Clinical Summary ---
Author Organization [facility] Address [address] [place] [address] Care Team Providers Care Computer Forensics Examiner Name Role Phone Cristina Finnegan MD Primary Care Provider Allergies Active Allergy Reactions Criticality Noted Date Comments Cephalexin Hives,Rash Low 11/11/2008 Cephalosporins Itching 11/23/2023 Other Reaction(s): CEPHALOSPORINS, Unknown Sulfa Antibiotics Rash Low 02/02/2023 Sulfamethoxazole-Trimethopri m Itching,Rash Low 02/02/2023 Trimethoprim 11/23/2023 Other Reaction(s): Dizziness, itching Medications levothyroxine (Synthroid, Levoxyl) 125 MCG tablet Take 125 mcg by mouth 1 (one) time each day at the same time Active fluticasone (Flonase) 50 MCG/ACT nasal spray Administer 1 spray into each nostril Daily Shake gently. Before first use, prime pump. After use, clean tip and replace cap. Active cetirizine (ZyrTEC) 10 MG tablet Take 5 mg by mouth Active ergocalciferol (Vitamin D2) 1.25 MG (68772 UT) capsuleIndicati ons:Vitamin D deficiency TAKE ONE CAPSULE BY MOUTH ONCE WEEKLY 12 capsule 1 5 Active albuterol HFA 90 mcg/act inhaler Every 4 hours 4 Active Active Problems Problem Noted Date Diagnosed Date Mastodynia 05/25/2024 Acute suppurative otitis med ia of left ear without spontaneous rupture of tympanic membrane 12/01/2023 Encounters Date Type Department Care Team Description 08/12/2024 Orders Only [facility] [address] [place] [address] Jemal Jeffery MD 05/25/2024 2:00 PM EDT Consult [facility] [address] [place] [phone] Pavan Justin DO Mastodynia 05/25/2024 Travel from Last 3 Months Family History Medical History Relation Name Comments Asthma Brother Asthma Daughter 1 Arthritis Father Diabetes Father Hyperlipidemia Father Hypertension Father Pre metabolic syndrome Father Stroke Father Lung cancer Maternal Grandfather Heart disease Maternal Grandmother Asthma Mother severe Breast cancer Mother Cancer Mother Deep vein thrombosis Mother FM Mother Heart disease Paternal Grandmother Cervical cancer Sister Colon cancer Neg Hx Ovarian cancer Neg Hx Pancreatic cancer Neg Hx Relation Name Status Comments Brother 1 Daughter 1 Alive Daughter 2 Alive Father Alive Maternal Grandfather Maternal Grandmother Mother Alive Paternal Grandmother Sister 1 Social History Tobacco Use Types Packs/Day Years Used Date Smoking Tobacco: Never Smokeless Tobacco: Never Tobacco Cessation:Counseling Given: Not Answered Alcohol Use Standard Drinks/Week Comments Not Currently 0 (1 standard drink = 0.6 oz pure alcohol) Occasional alcohol use. Caffeine: 1-2 cups per day Comments No Sex and Gender Information Value Date Recorded Sex Assigned at Female 08/21/2022 4:32 PM EDT Legal Sex Female 7:28 PM EDT Gender Identity Female 08/21/2022 4:32 PM EDT Sexual Orientation Straight 08/21/2022 4: 32 PM EDT Last Filed Vital Signs Vital Sign Reading Time Taken Comments Blood Pressure 120/80 02/12/2024 1:08 PM EST Pulse 81 08/20/2023 3:34 PM EDT Temperature - - Respiratory Rate 18 08/20/2023 3:34 PM EDT Oxygen Saturation 97% 08/20/2023 3:34 PM EDT Inhaled Oxygen Concentration - - Weight 116 kg (255 lb) 05/25/2024 1:57 PM EDT Height 177.8 cm (5' 10 ) 05/25/2024 1:57 PM EDT Body Mass Index 36.59 05/25/2024 1:57 PM EDT Plan of Treatment Upcoming Encounters Date Type Department Care Team (Late st Contact Info) Description 08/18/2024 11:00 AM EDT Office Visit [facility] [address] [place] [address] Jemal Jeffery MD [address] [place] [address] 02/16/2025 1:00 PM EST Office Visit [facility] [address] [place] [phone] Randa Somers, CNM [address] [place], [place] [id number] Health Maintenance Due Date Last Done Comments Pap Smear 2001 Cervical Cancer Screening 2010 HPV/Cotest 2010 Influenza Vaccine (Season Ended) 2024 03/11/2021, 12/28/2019, 11/23/2018, Additional history exists Mammogram 03/14/2025 03/14/2024, 01/31, 02/17/2022, Additional history exists Procedures Procedure Name Priority Date/Time Associated Diagnosis Comments TSH Routine 08/12/2024 8:35 AM EDT T3, FREE Routine 08/12/2024 8:35 AM EDT T4, FREE Routine 08/12/2024 8:35 AM EDT BI MAMMOGRAM SCREENING TOMOSYNTHESIS BILATERAL Routine 03/14/2024 4:02 PM EST Breast cancer screening by mammogram from Last 3 Months or Most Recently Relevant to Health Maintenance Results * T3, free (08/12/2024 8:35 AM EDT) Blood Venous blood specimen / Unknown Jemal Jeffery MD LAB BLOOD ORDERABLES Final Re sult * TSH (08/12/2024 8:35 AM EDT) Blood Venous blood specimen / Unknown Jemal Jeffery MD LAB BLOOD ORDERABLES Final Re sult * T4, free (08/12/2024 8:35 AM EDT) Blood Venous blood specimen / Unknown Jemal Jeffery MD LAB BLOOD ORDERABLES Final Re sult * Bilateral screening mammogram with tomosynthesis (03/14/2024 4:02 PM EST) Anatomical Region Laterality Modality Breast Bilateral Mammography 03/16/2024 9:31 AM EST Impressions 03/16/2024 9:38 AM EST Impression: No specific evidence of malignancy seen in either breast. BIRADS 2 - Benign Findings DENSITY: There are scattered areas of fibroglandular density. FOLLOW-UP: Routine Screening Mammogram ELECTRONICALLY SIGNED BY: Wili Mak M.D. Narrative 03/16/2024 9:38 AM EST Examination: BI MAMMOGRAM SCREENING TOMOSYNTHESIS BILATERAL Clinical [...] lymph node is suggested on the left. Procedure Note Wili Mak MD - 03/16/2024 Examination: BI MAMMOGRAM SCREENING TOMOSYNTHESIS BILATERAL Clinical History: screening Technique: Screening digital mammography study of both breasts wasperformed with 2-D and 3-D tomosynthesis imaging. Study was compared tothe prior exam dated 02/20/2023. Findings: There is no evidence of interval dominant spiculated mass,grouped microcalcifications, or skin thickening which would be suggestiveof malignancy. A few benign-appearing calcifications are noted bilaterally. Partiallyvisualized axillary lymph node is suggested on the left. IMPRESSION: Impression: No specific evidence of malignancy seen in either breast. BIRADS 2 - Benign Findings DENSITY: There are scattered areas of fibroglandular density. FOLLOW-UP: Routine Screening Mammogram ELECTRONICALLY SIGNED BY: Wili Mak M.D. Randa KINNEY IM BI PROCEDURES Final Resu lt from Last 3 Months or Most Recently Relevant to Health Maintenance Insurance [facility] Care Teams Computer Forensics Examiner Relationship Specialty Start Date End Date Cristina Finnegan MD PCP - General Family Medicine 11/25/23
--- OUTSIDE RECORDS SUMMARY | 2024-08-12 17:52 | XMS_ITS | Clinical Summary ---
Author Organization [facility] Address [address] [place] [address] Care Team Providers Care Wireless Store Manager Name Role Phone Unavailable Primary Care Provider Unavailabl e Social History Tobacco Use Types Packs/Day Years Used Date Smoking Tobacco: Never Assessed Comments Unknown Sex and Gender Information Value Date Recorded Sex Assigned at Not on file Legal Sex Female 12:13 AM EDT Gender Identity Not on file Sexual Orientation Not on file Last Filed Vital Signs Vital Sign Reading Time Taken Comments Blood Pressure 132/70 09/06/2018 1:45 PM EDT Pulse 71 06/24/2018 10:02 AM EDT Temperature - - Respiratory Rate - - Oxygen Saturation 97% 09/06/2018 1:44 PM EDT Inhaled Oxygen Concentration - - Weight 104 kg (230 lb) 09/06/2018 1:42 PM EDT Height 177.8 cm (5' 10 ) 09/06/2018 1:42 PM EDT Body Mass Index 33 09/06/2018 1:42 PM EDT Plan of Treatment Not on file
--- OUTSIDE RECORDS SUMMARY | 2024-08-12 17:52 | XMS_ITS | Encounter Summary ---
Author Organization [facility] Address [address] [place] [address] Care Team Providers Care Workers' Compensation Claims Supervisor Name Role Phone Cristina Finnegan MD Primary Care Provider [phone] Encounter Details Date Type Department Care Team (Late st Contact Info) Description 08/12/2024 Orders Only [facility] [address] [place] [phone] Jemal Jeffery MD [address] [place] [address] Social History Tobacco Use Types Packs/Day Years Used Date Smoking Tobacco: Never Smokeless Tobacco: Never Alcohol Use Standard Drinks/Week Comments Not Currently 0 (1 standard drink = 0.6 oz pure alcohol) Occasional alcohol use. Caffeine: 1-2 cups per day Comments No Sex and Gender Information Value Date Recorded Sex Assigned at Female 08/21/2022 4:32 PM EDT Legal Sex Female 7:28 PM EDT Gender Identity Female 08/21/2022 4:32 PM EDT Sexual Orientation Straight 08/21/2022 4: 32 PM EDT documented as of this encounter Plan of Treatment Upcoming Encounters Date Type Department Care Team (Late st Contact Info) Description 08/18/2024 11:00 AM EDT Office Visit [facility] [address] [place] [phone] Jemal Jeffery MD [address] [place] [address] 02/16/2025 1:00 PM EST Office Visit [facility] [address] [place] [address] Randa Somers, GREGORIAM [address] [place] [address] documented as of this encounter Procedures Procedure Name Priority Date/Time Associated Diagnosis Comments T3, FREE Routine 08/12/2024 8:35 AM EDT TSH Routine 08/12/2024 8:35 AM EDT T4, FREE Routine 08/12/2024 8:35 AM EDT documented in this encounter Results * TSH (08/12/2024 8:35 AM EDT) Blood Venous blood specimen / Unknown us Jemal Jeffery MD LAB BLOOD ORDERABLES Final Re sult * T3, free (08/12/2024 8:35 AM EDT) Blood Venous blood specimen / Unknown us Jemal Jeffery MD LAB BLOOD ORDERABLES Final Re sult * T4, free (08/12/2024 8:35 AM EDT) Blood Venous blood specimen / Unknown us Jemal Jeffery MD LAB BLOOD ORDERABLES Final Re sult documented in this encounter Visit Diagnoses Not on filedocumented in this encounter Care Teams Workers' Compensation Claims Supervisor Relationship Specialty Start Date End Date Cristina Finnegan MD PCP - General Family Medicine 11/25/23 documented as of this encounter
--- OUTSIDE RECORDS SUMMARY | 2024-08-12 17:52 | XMS_ITS | Patient Health Record ---
Author Organization [facility] [place] Address [address] [place] [address] Care Team Providers Care Sorter/Assay Tech Name Role Phone None, Unknown or Primary Care Provider Unavailab le Allergies Allergen (clinical drug ingredient) Drug/Non Drug Allergy documented on EMR Reaction Allergy Type Onset Date Status naldacon (uncoded) swelling, facial Allergy Active sulfamethoxazole / trimethoprim Bactrim dizziness, rash Drug Allergy Active Medicinal cephalosporin and acting as antibacterial agent (FN) Cephalosporins itching Drug Allergy Active Reason For Referral No Information Medications Medication SIG (Take, Route, Frequency, Duration) [...] Question Answer Notes Patient is a nonsmoker Problems Problem Type SNOMED Code ICD Code Onset Dates Problem Status W/U Status Risk Notes Problem 023971210 Contracture, right ankle (M24.571) Active confirmed Problem [id number] 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) Active confirmed Problem Pain in right foot (369686991766091) Pain in right foot (M79.671) Active confirmed Problem Right peroneal tendinitis (799470197709024) Peroneal tendinitis, right (M76.71) Active confirmed Problem Cavovarus deformity of foot, acquired, 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 Problem Ankle instability (685957) Ankle instability, 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 confirmed Problem Equinus contracture of right ankle (M24.571) Active confirmed Plan Of Treatment No Information Insurance Providers Payer Name Payer Address Payer Phone Subscriber Number Group Number Insured Name Patient Relationship to Insured Coverage Start Date Coverage End Date [employer] PPO PLUS LOCAL PLAN [address] [place] [address] [id number] [place] Noe Self - patient is the insured 3 4 Medications Administered Medication Instructions Date of Administration Dosage Notes Celestone 6mg/mL 07/17/2022 1 mL Lidocaine HCl 07/17/2022 1 mL Medical (General) History Medical History History ICD Code Equinus contracture of right ankle M24.5 71 Cavovarus deformity of foot, acquired, r ight M21.6X1 Ankle instability, right M25.371 Peroneal tendinitis, right M76.71 Pain in right foot M79.671 Asthma Surgical History Surgery Date(Month/Year) wisdom teeth extraction laparoscopy, hysterscopy D&C 08/2016 bone spur removed lap hysterectomy, left salpingo-oophorec kilo, cystoscopy 10/2016 right EPF, gastro recession 12.08.2022 Dr Jolynn Mcghee
--- OUTSIDE RECORDS SUMMARY | 2024-08-12 17:54 | XMS_ITS | CCD ---
Author Organization [facility] Care Team Providers Care Household Appliances Service Technician Name Role Phone PHYSICIAN, DEFAULT Admitting Unavailable PHYSICIAN, DEFAULT Attending Unavailable Daria Lawler Unavailable MD Cristina Barrios Primary Care Provider MD Cristina Barrios Attending Provider EMMANUEL, DR GORDON Admitting Unavailable KARASIK, DR GORDON Attending Unavailable BARRIOS, DR CRISTINA Garces Primary Care Unavailable KARMADISON, DR GORDON Consulting Unavailable ZIEBER, DR MG Rivers Consulting Unavailable LISANDRO, JEMAL Admitting Unavailable LISANDROJEMLA LUKE Attending Unavailable DENIS, DR CRISTINA Garces Primary Care Unavailable LISANDROJEMAL LUKE Consulting Unavailable DENIS, DR CRISTINA Garces Admitting Unavailable BARRIOS, DR CRISTINA Garces Attending Unavailable BARRIOS, DR CRISTINA Garces Primary Care Unavailable BARRIOS, DR CRISTINA Garces Consulting Unavailable KARASIK, DR GORDON Admitting Unavailable KARASIK, DR GORDON Attending Unavailable BARRIOS, DR CRISTINA Garces Primary Care Unavailable KARMADISON, DR GORDON Consulting Unavailable Cristina Barrios Unavailable KIMBERLY Hobson Attending Provider Stephanie Hobson Admitting Unavailable Stephanie Hobson Attending Unavailable Cristina Barrios Admitting Unavailable Cristina Barrios Primary Care Unavailable Cristina Barrios Attending Unavailable Stephanie Hobson Unavailable Cristina Barrios MD Primary Care Provider PAVAN RODRIGUEZ Attending Unavailable CRISTINA BARRIOS Referring Unavailable QUITA BARNEY Attending Unavailable CRISTINA BARRIOS Referring Unavailable SUZE SOMERS Attending Unavailable SUZE SOMERS Referring Unavailable Allergies Allergy Classification Reported Allergen(s) Allergy Type Date of Onset Reaction(s) Facility (17 sources) Sulfamethoxazole / Trimethoprim Drug Allergy 023 Itching, Rash [facility] (15 sources) cephalaexin Propensity to adverse reactions Unknown, [facility] (19 sources) Cephalexin; Translations: [cephalexin] Drug Allergy 009 Hives, Rash [facility] (7 sources) Sulfamethoxazole Drug Allergy 018 Dizziness, Dizziness, itching [facility] (12 sources) Trimethoprim Drug Allergy Dizziness, Dizziness, itching [facility] (17 sources) naldacon Allergy to substance Rash, NALDACON Comment:facial [facility] (6 sources) Cephalosporins (Antibiotic) Drug allergy (disorder) CEPHALOSPORINS [facility] Repository Comment on above: Onset Date: 03/02/2016 (1 source) Chlorpheniramine / Phenylephrine / Phenylpropanolamine / phenyltoloxamine Drug Allergy [facility] (1 source) Sulfamethoxazole / Trimethoprim Drug Allergy [facility] (6 sources) Seasonal allergy Propensity to adverse reactions SEASONAL [facility] (6 sources) NALDOCON Propensity to adverse reactions 014 Unknown [facility] (6 sources) Medicinal cephalosporin and acting as antibacterial agent (FN) Drug allergy CEPHALOSPORINS [facility] (6 sources) Sulf-10 Drug allergy 018 Unknown [facility] (6 sources) Allergies Reconciled Propensity to adverse reactions Unknown [facility] (6 sources) patient allergy list reviewed by nurse or physicia Propensity to adverse reactions Comment:Done [facility] (5 sources) Sulfonamides (Antibiotic) Allergy to substance [facility] Comment on above: Onset Date: 04/28/2017 (6 sources) Sulfonamides (Antibiotic) Drug Allergy 023 Rash [facility] (5 sources) Cephalosporins (Antibiotic) Drug Allergy 024 Itching [facility] Medications Current Medications Medication Drug Class(es) Dates Sig (Normalized) Sig (Original) Airborne Gummies (11 sources) Airborne Gummies Not-Taking Airborne Gummies Active [id number] actuat albuterol 0.09 mg/actuat metered dose inhaler (16 sources) beta2-Adrenergic Agonist Start: 04-21-2023 albut subha HFA 90 mcg/act inhaler Every 4 hours 04/21/2023 Active Start: 04-21-2023 take 1 puff(s) by in halation every four hours as needed Albuterol Sulfate (Ventolin Hfa) 90 mcg/actuation HFA aerosol inhaler Active 1 PUFF INHALATION Every 4 hours April 21, 2023 12:00am [employer] puff as needed Inhalation every 4 hrs; Note: Source Status: Taking; Provider: Denis Evans ( ) take 1 puff(s) by in halation every four hours as needed Ventolin HFA 108 (90 Base) MCG/ACT 1 puff as needed Inhalation every 4 hrs Active cetirizine hydrochloride 10 mg oral tablet (20 sources) Histamine-1 Receptor Antagonist Start: 04-21-2023 take 1 tablet by mouth once daily as needed Cetirizine (Zyrtec) 10 mg tablet Active 1 TAB PO Daily April 21, 2023 12:00am [employer] tablet as needed Orally Once a day; Note: Source Status: Taking; Provider: Denis Evans ( ) cetirizine (ZyrT EC) 10 MG tablet Take 5 mg by mouth Active cholecalciferol 0.01 mg oral capsule (10 sources) Vitamin D Start: 04-21-2023 take 1 capsule by mouth once daily Cholecalciferol (Vitamin D3) 10 mcg (400 unit) capsule Active 10 MCG PO Daily April 21, 2023 12:00am Start: 04-21-2023 take 10 ug by mouth [...] the same time 02/12/2024 Discontinued (Therapy completed) ergocalciferol 1.25 mg oral capsule (1 source) Provitamin D2 Compound Start: 04-11-2024 take 1 capsule by mouth every week ergocalciferol (Vitamin D2) 1.25 MG (51377 UT) capsule Indications: Vitamin D deficiency TAKE ONE CAPSULE BY MOUTH ONCE WEEKLY 12 capsule 1 04/11/2024 Active fluticasone propionate 0.05 mg/actuat metered dose nasal spray (10 sources) Corticosteroid Start: 06-24-2021 take 2 spray(s) [...] Orally Once a day Active Meloxicam Active Iiwwsnjf-Ika-Ybm C-Herb No.124 (Airborne Gummy) 250-11.66 mg tablet,chewable (5 sources) Start: 04-21-2023 take 1 tablet by mouth once Istyncmo-Mjt-Ihg C-Herb No.124 (Airborne Gummy) 250-11.66 mg tablet,chewable Active TAB PO April 21, 2023 1:00am Start: 04-21-2023 take 1 tablet by mouth once Mu kcflud-Lcz-Tty C-Herb No.124 (Airborne Gummy) 250-11.66 mg tablet,chewable Active TAB PO April 21, 2023 12:00am Multivitamin (One Daily Multivitamin) tablet (5 sources) Start: 04-21-2023 take 1 tablet by [...] Sig (Original) amoxicillin 500 mg oral tablet (3 sources) Penicillin-class Antibacterial Start: 11-10-2023 End: 11-23-2023 take 1 tablet by mouth three times daily Amoxicillin 500 mg tablet Discontinued 500 MG PO Three times daily November 09, 2023 11:00pm November 23, 2023 8:03am azithromycin 250 mg oral tablet (18 sources) Macrolide Antimicrobial Start: 02-05-2024 End: 04-28-2024 Azithromycin 250 mg tablet Discontinued 0 PO daily 6 February 05, 2024 12:00am April 28, 2024 10:12am Take 2 on day 1 and then take 1 for the next 4 days (days 2-5) Start: 02-16-2023 End: 11-10-2023 take 2 tablets by mouth once daily, then take 1 tablet by mouth once daily Azithromycin 250 mg tablet Discontinued 250 MG PO Daily June 30, 2023 10:34am November 10, 2023 1:02pm FreeTextSig: as directed Orally 2 tabs po today, then 1 tab daily x 4 more days; Note: Source Status: Start; Refills: 0; Provider: Denis Garces dextromethorphan hydrobromide 3 mg/ml / promethazine hydrochloride 1.25 mg/ml oral solution (1 source) Phenothiazine, Uncompetitive O-jnnyiw-T-aspartate Receptor Antagonist, Sigma-1 Agonist Start: 02-05-2024 End: 04-28-2024 take 1 mL by mouth every four to six hours as needed for cough Promethazine-Dm 6.25-15 mg/5 mL syrup Discontinued 5 ML PO EVERY 4-6 HOURS as needed for cough 118 February 05, 2024 12:00am April 28, 2024 10:12am doxycycline hyclate 100 mg oral tablet (2 sources) Tetracycline-class Drug Start: 11-23-2023 End: 02-01-2024 take 1 tablet by mouth twice daily Doxycycline Hyclate 100 mg tablet Discontinued 100 MG PO Twice daily November 22, 2023 11:00pm February 01, 2024 10:15am levothyroxine sodium 0.125 mg oral capsule (20 sources) l-Thyroxine Start: 04-21-2023 End: 06-30-2023 take 1 capsule by mouth once daily Levothyroxine 125 mcg capsule Discontinued 125 MCG PO Daily April 21, 2023 12:00am June 30, 2023 10:19am Start: 04-24-2017 take 1 tablet by hang th once daily Levothyroxine 125 mcg tablet Active 125 MCG PO Daily April 24, 2017 12:00am take 1 capsule by mo [facility] every twenty-four hours Levothyroxine Sodium 125 MCG 1 tablet Orally Once a day for 30 Active methylPREDNISolone 4 mg oral tablet (1 source) Corticosteroid Start: 02-05-2024 End: 04-28-2024 take 1 tablet by mouth once Methylprednisolone (Medrol (Tera)) 4 mg tablets,dose pack Discontinued 0 PO per package directions February 05, 2024 12:00am April 28, 2024 10:12am PO PER PKG DIR Ortho-Cyclen (28) 0.25-35 MG-MCG (5 sources) take 1 tablet by mouth once daily Ortho-Cyclen (28) 0.25-35 MG-MCG 1 tablet Orally Once a day Not-Taking phenazopyridine hydrochloride 200 mg oral tablet (11 sources) Start: 04-21-2023 End: 06-30-2023 take 1 tablet by mouth three times daily after mealtime as needed Phenazopyridine 200 mg tablet Discontinued MG PO April 21, 2023 12:00am June 30, 2023 10:21am FreeTextSi tablet after meals Orally Three times a day prn; Note: Source Status: Taking; Refills: 0; Qty: 9 tabs; Provider: Jazlyn Brown Start: 12-06-2022 take 1 tablet by hang three times daily after mealtime as needed Phenazopyridine HCl 200 MG 1 tablet after meals Orally Three times a day prn for 3 days Nov, Active Start: 12-06-2022 take 1 tablet by hang th three times daily after mealtime as needed [...] pain] Onset: 02-20-2017 Resolved: 01-05-2020 04-24-2017 Episodic Comment on above: Problem List clean-u p per request of Phys. EHR Cmte Acquired foot deformities (6 sources) Acquired deformity of right foot; Translations: [Other acquired deformities of right foot] Episodic Asthma (20 sources) Uncomplicated mild persistent asthma; Translations: [Mild persistent asthma, uncomplicated] Chronic Cardiac dysrhythmias (6 sources) Atrial fibrillation; Translations: [Unspecified atrial fibrillation] Chronic Chronic obstructive pulmonary disease and bronchiectasis (2 sources) Bronchitis; Translations: [Bronchitis, not specified as acute or chronic] 02-05-2024 Episodic Complications of surgical procedures or medical care [...] Translations: [Tinea corporis] Episodic Nonmalignant breast conditions (16 sources) Pain of breast; Translations: [Mastodynia] Onset: 11-10-2006 Resolved: 11-15-2015 04-28-2024 Episodic Nutritional deficiencies (1 source) Vitamin D deficiency, unspecified; Translations: [VITAMIN D DEFICIENCY UNSPECIFIED] Onset: 07-04-2021 Chronic Other acquired deformities (6 sources) 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; Translations: [Contracture, right ankle] Chronic Other aftercare (6 sources) Long-term current use of inhaled steroid; Translations: [long term (current) use of 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] Episodic Other [...] Translations: [Other instability, right ankle] Episodic Other non-traumatic joint disorders (2 sources) Pain in right knee; Translations: [Pain in both knees] 02-01-2024 Episodic Other non-traumatic joint disorders (1 source) Pain in wrist; Translations: [Pain in left wrist] 04-28-2024 Episodic Other non-traumatic joint disorders (1 source) Pain in left wrist; Translations: [Pain in joint, forearm] 04-28-2024 Episodic Other nutritional; endocrine; and metabolic disorders [...] sinusitis, unspecified] Chronic Other upper respiratory infections (16 sources) Acute sinusitis, unspecified; Translations: [Acute sinusitis] Onset: 06-17-2013 Resolved: 06-24-2021 Episodic Otitis media and related conditions (5 sources) Chronic mucoid otitis media of left middle ear; Translations: [Other chronic nonsuppurative otitis media, left ear] 11-23-2023 Chronic Residual codes; unclassified (5 sources) Obstructive sleep [...] of normal first ] Onset: 04-06-2006 Episodic Otitis media and related conditions (20 sources) Dysfunction of left eustachian tube; Translations: [Other specified disorders of Eustachian tube, left ear] Onset: 12-01-2023 12-01-2023 Episodic Spondylosis; intervertebral disc disorders; other back [...] bacterial skin contaminants 2 Days PERFORMED BY: [place] [id number] PATHOLOGIST RECYCLING OR RUBBISH COLLECTOR OTILIA HO M.D. Normal [facility] Comment on above: Performed By: #### C UU #### [address] MG MAMM SCREEN 3D AUGUST CADon 02-17-2022 MG MAMM SCREEN 3D AUGUST CAD Patient: SAHARA GIPSON I. Exam Date: 02/17/2022 : 1980 Gender:F Ordering : DR EVAN BENITEZ . Admission #: [id number] Family : Order #: [id number] CLICK HERE TO VIEW EXAM RADIOLOGY REPORT [...] lung cancer at age 60. LOCATION: [facility] BREAST COMPOSITION: Heterogeneously dense,which may obscure small [...] Mg Weller M.D. on 02/18/2022 at 12:28 Normal [facility] PAP ACOG PANEL 2: 30 to 65on 02-04-2022 . . Normal [facility] Comment on above: Result Comment: Perf ormed at: WB Performed By: #### [id number] #### [facility] [address] [address] [address] Micha Proctor Age Gdln ACOG Testing 30-65 Normal [facility] Comment on above: Performed By: #### [id number] #### [facility] [address] [address] [address] Micha Proctor DIAGNOSIS: Comment Normal [facility] Comment on above: Result Comment: NEGA TIVE FOR INTRAEPITHELIAL LESION OR MALIGNANCY. Performed at: WB Performed By: #### [id number] #### [facility] [address] [address] [address] Micha Proctor HPV Aptima Negative Normal Negative [facility] Comment on above: Result Comment: This nucleic acid amplification test detects fourteen high-risk HPV types (16,18,31,33,35,39,45,51,52,56,58,59,66,68) without differentiation. Performed at: =G Performed By: #### [id number] #### [facility] [address] [place] [address] Dr. Micha Proctor HPV Genotype Reflex Comment Normal [facility] Comment on above: Result Comment: Crit eria not met, HPV Genotype not performed. Performed at: WB Performed By: #### [id number] #### [facility] [address] [place] [address] Dr. Micha Proctor Methodology: Comment Normal [facility] Comment on above: Result Comment: This liquid based ThinPrep(R) pap test was screened with the use of an image guided system. Performed at: WB Performed By: #### [id number] #### [facility] [address] [place] [address] Dr. Micha Proctor Note: Comment Normal [facility] Comment on above: Result Comment: The Pap smear is a screening test designed to aid in the detection of premalignant and malignant conditions of the uterine cervix. It is not a diagnostic procedure and should not be used as the sole means of detecting cervical cancer. Both false-positive and false-negative reports do occur. . Performed at: WB Performed By: #### [id number] #### [facility] [address] [address] [address] Micha Proctor Performed by: Comment Normal [facility] Comment on above: Result Comment: Vicki Elliott, Case Aide (ASCP) Performed at: WB Performed By: #### [id number] #### [facility] [address] [address] [address] Micha Proctor Specimen adequacy: Comment Normal [facility] Comment on above: Result Comment: Sati sfactory for evaluation. No endocervical cells are present. This is consistent with a history of hysterectomy. Performed at: WB Performed By: #### [id number] #### [facility] [address] [address] [address] Micha Proctor XR KUBon 01-10-2022 XR KUB [facility] [address] XRay Report Signed Patient: Sahara Gipson I MR#: [id number] 22 : 1980 Acct:[id number] Age/Sex: 41 / F ADM Date: 01/10/22 Loc: ICXD Room: Type: [facility] Attending Dr: Cristina Barrios MD Copies to: Critsina Barrios MD Ordering Provider: Cristina Barrios MD [...] Courtney Rodríguez M.D.01/10/2022 4:04 PM Dictation Location: [place] [address] Transcribed By: KIMBERLEE 01/10/22 1604 Dictated By: Courtney Rodríguez MD 01/10/22 1602 Signed By: 01/10/22 1604 Normal [facility] CULTURE URINEon 01-07-2022 CULTURE URINE Culture Observations : LIGHT GROWTH OF MIXED GENITAL ALLA. NO POTENTIAL PATHOGENS SEEN. Normal [facility] Comment on above: Performed By: #### U RCX #### [facility] [address] [place] [address] Dr. Micha Proctor FREE T3on 07-03-2021 FREE T3 2.59 pg/mlL Normal 2.18-3.98 [facility] Comment on above: Performed By: #### F T3, TSH #### [facility] [address] [place] [address] Dr. Micha Proctor FREE T4on 07-03-2021 Free T4 [Mass/Vol] 1.34 ng/dL Normal 0.76-1.46 [facility] Comment on above: Performed By: #### V ITAD, FT4 #### [facility] [address] [place] [address] Dr. Micha Proctor TSHon 07-03-2021 TSH 0.277 uIU/mL Critically low 0.470-4.680 [facility] Comment on above: Performed By: #### F T3, TSH #### [facility] [address] [place] [address] Dr. Micha Proctor TSH RANGE SEE BELOW Normal [facility] Comment on above: Result Comment: <0.3 4 UIU/ml HYPERTHYROID 0.34-5.60 UIU/ml EUTHYROID >5.60 UIU/ml HYPOTHYROID Performed By: #### F T3, TSH #### [facility] [address] [place] [address] Dr. Micha Proctor VITAMIN D 25 OHon 07-03-2021 VIT D 25-OH 32.2 ng/mL Normal [facility] Comment on above: Performed By: #### V ITAD, FT4 #### [facility] [address] [place] [address] Dr. Micha Proctor VIT D RANGES SEE BELOW Normal [facility] Comment on above: Result Comment: <20 ng/mL Vit D deficient 20 - <30 ng/mL Vit D insufficient 30 - 100 ng/mL Vit D sufficient >100 ng/mL Potential Toxicity Performed By: #### V REHANA PINEDA4 #### [facility] [address] [place] [address] Dr. Micha Proctor Vital Signs Date Time Vital Sign Value Performing Clinician Facility 05-25-2024 13:57-0400 Body height 177.8 cm Dextr DO Work Phone: [facility] 05-25-2024 13:57-0400 Body mass index (BMI) [Ratio] 36.59 kg/m2 Dextr DO Work Phone: [facility] 05-25-2024 13:57-0400 Body weight 115.67 kg Dextr DO Work Phone: [facility] 04-28-2024 10:00-0500 Body height 177.8 cm [facility] 04-28-2024 10:00-0500 Body mass index (BMI) [Ratio] 36.1 kg/m2 [facility] 04-28-2024 10:00-0500 Body weight 114.3 kg [facility] 04-28-2024 10:00-0500 Diastolic blood pressure 80 mm[Hg] [facility] 04-28-2024 10:00-0500 Heart rate 65 /min [facility] 04-28-2024 10:00-0500 Systolic blood pressure 132 mm[Hg] [facility] 02-12-2024 13:08-0500 Body mass index (BMI) [Ratio] 36.73 kg/m2 Suze Floro CN Work Phone: [facility] 02-12-2024 13:08-0500 Body weight 116.12 kg Suze Newsero CNM Work Phone: [facility] 02-12-2024 13:08-0500 Diastolic blood pressure 80 mm[Hg] Suze Newsero CN Work Phone: [facility] 02-12-2024 13:08-0500 Systolic blood pressure 120 mm[Hg] Suze Somers CNM Work Phone: [facility] 02-05-2024 11:00-0500 Body height 177.8 cm [facility] 02-05-2024 11:00-0500 Body mass index (BMI) [Ratio] 37.2 kg/m2 [facility] 02-05-2024 11:00-0500 Body temperature 97.3 [degF] [facility] 02-05-2024 11:00-0500 Body weight 117.59 kg [facility] 02-05-2024 11:00-0500 Diastolic blood pressure 74 mm[Hg] [facility] 02-05-2024 11:00-0500 Heart rate 95 /min [facility] 02-05-2024 11:00-0500 SaO2% (BldA) [Mass fraction] 96 % [facility] 02-05-2024 11:00-0500 Systolic blood pressure 128 mm[Hg] [facility] 02-01-2024 10:16-0500 Body height 177.8 cm [facility] 02-01-2024 10:16-0500 Body mass index (BMI) [Ratio] 36.4 kg/m2 [facility] 02-01-2024 10:16-0500 Body temperature 98.2 [degF] [facility] 02-01-2024 10:16-0500 Body weight 115.21 kg [facility] 02-01-2024 10:16-0500 Diastolic blood pressure 80 mm[Hg] [facility] 02-01-2024 10:16-0500 Heart rate 102 /min [facility] 02-01-2024 10:16-0500 Respiratory rate 16 /min [facility] 02-01-2024 10:16-0500 SaO2% (BldA) [Mass fraction] 99 % [facility] 02-01-2024 10:16-0500 Systolic blood pressure 130 mm[Hg] [facility] 12-01-2023 13:42-0400 Body height 177.8 cm Quita Barney MD Work Phone: [facility] 12-01-2023 13:42-0400 Body mass index (BMI) [Ratio] 37.31 kg/m2 Quita Barney MD Work Phone: [facility] 12-01-2023 13:42-0400 Body weight 117.94 kg Quita Barney MD Work Phone: [facility] 12-01-2023 13:42-0400 Diastolic blood pressure 71 mm[Hg] Quita Barney MD Work Phone: [facility] 12-01-2023 13:42-0400 Systolic blood pressure 121 mm[Hg] Quita Barney MD Work Phone: [facility] 11-23-2023 08:41-0400 Body height 177.8 cm [facility] 11-23-2023 08:41-0400 Body mass index (BMI) [Ratio] 37.3 kg/m2 [facility] 11-23-2023 08:41-0400 Body weight 117.93 kg [facility] 11-23-2023 08:41-0400 Diastolic blood pressure 75 mm[Hg] [facility] 11-23-2023 08:41-0400 Heart rate 70 /min [facility] 11-23-2023 08:41-0400 Systolic blood pressure 119 mm[Hg] [facility] 11-10-2023 13:41-0400 Body height 177.8 cm [facility] 11-10-2023 13:41-0400 Body mass index (BMI) [Ratio] 37.3 kg/m2 [facility] 11-10-2023 13:41-0400 Body temperature 97.5 [degF] [facility] 11-10-2023 13:41-0400 Body weight 117.93 kg [facility] 11-10-2023 13:41-0400 Diastolic blood pressure 81 mm[Hg] [facility] 11-10-2023 13:41-0400 Heart rate 81 /min [facility] 11-10-2023 13:41-0400 Systolic blood pressure 138 mm[Hg] [facility] 06-30-2023 11:16-0400 Body height 177.8 cm [facility] 06-30-2023 11:16-0400 Body mass index (BMI) [Ratio] 37.1 kg/m2 [facility] 06-30-2023 11:16-0400 Body temperature 97.9 [degF] [facility] 06-30-2023 11:16-0400 Body weight 117.53 kg [facility] 06-30-2023 11:16-0400 Diastolic blood pressure 81 mm[Hg] [facility] 06-30-2023 11:16-0400 Heart rate 71 /min [facility] 06-30-2023 11:16-0400 Systolic blood pressure 136 mm[Hg] [facility] 01-12-2023 10:45-0500 Body height 177.8 cm Cristina Barrios Other [facility] Other 01-12-2023 10:45-0500 Body mass index (BMI) [Ratio] 37.16 kg/m2 Cristina Barrios Other [facility] Other 01-12-2023 10:45-0500 Body weight 117.48 kg Cristina Barrios Other [facility] Other 01-12-2023 10:45-0500 Diastolic blood pressure 74 mm[Hg] Cristina Barrios Other [facility] Other 01-12-2023 10:45-0500 Systolic blood pressure 116 mm[Hg] Cristina Barrios Other [facility] Other 01-12-2023 09:45-0500 Body height 177.8 cm Cristina Barrios Other [facility] Other 01-12-2023 09:45-0500 Body mass index (BMI) [Ratio] 37.16 kg/m2 Cristina Barrios Other [facility] Other 01-12-2023 09:45-0500 Body weight 117.48 kg Cristina Barrios Other [facility] Other 01-12-2023 09:45-0500 Diastolic blood pressure 74 mm[Hg] Cristina Barrios Other [facility] Other 01-12-2023 09:45-0500 Systolic blood pressure 116 mm[Hg] Cristina Barrios Other [facility] Other 06-06-2022 12:15-0400 Body height 177.8 cm Cristina Barrios Other [facility] Other 06-06-2022 12:15-0400 Body mass index (BMI) [Ratio] 36.44 kg/m2 Cristina Barrios Other [facility] Other 06-06-2022 12:15-0400 Body weight 115.21 kg Cristina Barrios Other [facility] Other 06-06-2022 12:15-0400 Diastolic blood pressure 70 mm[Hg] Cristina Barrios Other [facility] Other 06-06-2022 12:15-0400 SaO2% (BldA) [Mass fraction] 99 % Cristina Barrios Other [facility] Other 06-06-2022 12:15-0400 Systolic blood pressure 124 mm[Hg] Cristina Barrios Other [facility] Other 06-24-2021 16:00-0400 Body height 177.8 cm Daria Lawler Other [facility] Other 06-24-2021 16:00-0400 Body mass index (BMI) [Ratio] 35.87 kg/m2 Daria Lawler Other [facility] Other 06-24-2021 16:00-0400 Body temperature 98.4 [degF] Daria Lawler Other [facility] Other 06-24-2021 16:00-0400 Body weight 113.4 kg Daria Lawler Other [facility] Other 06-24-2021 16:00-0400 Respiratory rate 18 /min Daria Lawler Other [facility] Other 06-24-2021 16:00-0400 SaO2% (BldA) [Mass fraction] 97 % Daria Lawler Other [facility] Other Encounters Encounter Date Encounter Type Care Provider Facility Start: 05-25-2024 End: 05-25-2024 Office outpatient new 45 minutes Pavan H Itzkeaton DO Work Phone: [facility] Comment on above: Mastodynia Start: 05-25-2024 End: 05-25-2024 ambulatory PAVAN H ITZKOWITZ Not Available Start: 04-28-2024 End: 04-28-2024 ambulatory [facility] Work Phone: Start: 04-28-2024 End: 04-28-2024 Patient encounter procedure [facility] Work Phone: Start: 03-14-2024 End: 03-14-2024 ambulatory SUZE L FLORO Not Available Start: 02-12-2024 End: 02-12-2024 ambulatory SUZE L FLORO Not Available Start: 02-12-2024 End: 02-12-2024 Gynecological examination normal Suze Somers CNM Work Phone: [facility] Start: 02-12-2024 End: 02-12-2024 Periodic preventive med est patient 40-64yrs Suze Somers CNM Work Phone: [facility] Comment on above: Normal gynecologic e xamination; Breast cancer screening by mammogram Start: 02-05-2024 End: 02-05-2024 Patient encounter procedure [facility] Work Phone: Start: 02-01-2024 End: 02-01-2024 Patient encounter procedure [facility] [place] Work Phone: Start: 12-01-2023 End: 12-01-2023 Bamboo flowsheet Quita Barney MD Work Phone: [facility] Start: 12-01-2023 End: 12-01-2023 Bamboo flowsheet Quita Barney MD Work Phone: [facility] [...] Not Available Start: 11-23-2023 End: 11-23-2023 ambulatory [facility] Work Phone: Start: 11-23-2023 End: 11-23-2023 Patient encounter procedure [facility] Work Phone: Start: 11-10-2023 End: 11-10-2023 ambulatory [facility] Work Phone: Start: 11-10-2023 End: 11-10-2023 Patient encounter procedure [facility] Work Phone: Start: 06-30-2023 End: 06-30-2023 ambulatory [facility] Work Phone: Start: 06-30-2023 End: 06-30-2023 Patient encounter procedure [facility] Work Phone: Start: 04-22-2023 End: 04-22-2023 ambulatory [facility] Work Phone: Start: 04-22-2023 End: 04-22-2023 Patient encounter procedure [facility] Work Phone: Start: 02-16-2023 (Televisit) Televisit Cristina Barrios [facility] Start: 02-16-2023 End: 02-16-2023 ambulatory Cristina Barrios Other [facility] Other Start: 02-16-2023 Patient encounter procedure [facility]- Start: 02-13-2023 End: 02-13-2023 ambulatory Cristina Barrios Other [facility] Other Start: 02-13-2023 Telephone encounter Cristina Barrios [place] Start: 01-15-2023 End: 01-15-2023 ambulatory Cristina Barrios Other [facility] Other Start: 01-15-2023 Telephone encounter Cristina Barrios [place] Start: 01-12-2023 End: 01-12-2023 ambulatory Cristina Barrios Other [facility] Other Start: 01-12-2023 Office outpatient vi sit 15 minutes Cristina Barrios [place] Start: 12-08-2022 End: 12-08-2022 ambulatory Stephanie Hobson Other [facility] Other Start: 12-08-2022 Telephone encounter Stephanie Hobson [facility] [place] Start: 12-06-2022 End: 12-06-2022 ambulatory Stephanie Hobson Facility:[facility] Start: 12-06-2022 End: 12-06-2022 ambulatory KIMBERLY Muñizley Work Phone: [facility] Work Phone: Start: 12-06-2022 End: 12-06-2022 Departed Referred KIMBERLY Brown Jazlyn Work Phone: [facility] [address] [place] Work Phone: Start: 07-03-2022 End: 07-03-2022 ambulatory Cristina Barrios Other [facility] Other Start: 07-03-2022 Telephone encounter Cristina Barrios [place] Start: 06-18-2022 End: 06-18-2022 ambulatory Cristina Barrios Other [facility] Other Start: 06-18-2022 Telephone encounter Cristina Barrios [place] Start: 06-09-2022 End: 06-09-2022 ambulatory Cristina Barrios Other [facility] Other Start: 06-09-2022 Telephone encounter Cristina Barrios [place] Start: 06-06-2022 End: 06-06-2022 ambulatory Cristina Barrios Other [facility] Other Start: 06-06-2022 Office outpatient vi sit 15 minutes Cristina Barrios [place] Start: 02-17-2022 Adult health examination Rebeca Hobson Other [facility] Other Start: 02-17-2022 Gynecological examination normal Stephanie Hobson Other [facility] Other Start: 02-17-2022 End: 02-18-[address] EVAN BENITEZ Facility:[facility] Start: 01-27-2022 End: 01-27-[address] EVAN BENITEZ Facility:[facility] Start: 01-10-2022 End: 01-10-2022 ambulatory Cristina Barrios Facility:[facility] Start: 01-10-2022 End: 01-10-2022 ambulatory MD Cristina Barrios Work Phone: [facility] Work Phone: Start: 01-10-2022 End: 01-10-2022 Patient encounter procedure MD Cristina Barrios Work Phone: [facility] [address] Start: 01-07-2022 End: 01-07-[address] CRISTINA BARRIOS Facility:[facility] Start: 07-03-2021 End: 07-04-2021 ambulatory JEMAL MCMAHON Facility:[facility] Start: 06-24-2021 End: 06-24-2021 ambulatory Daria Lawler Other The [facility] Other Start: 06-24-2021 Office outpatient ne w 20 minutes Daria Lawler [facility] [place] Start: 06-08-2018 Pre-procedure evalua tion check Stephanie Hobson Other The [facility] Other Start: 05-11-2018 End: 05-12-2018 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 Facility:[facility] Procedures Date Procedure Procedure Detail Performing Clinician Start: 03-14-2024 Mammography Pavan It zkowitz DO Work Phone: Start: 02-20-2023 Mammography Quita ross MD Work Phone: Start: 01-10-2022 Diagnostic radiograp hy of abdomen MD Cristina Barrios Work Phone: Start: 12-17-2006 Contraception care education Stephanie Hobson Other Start: 12-17-2006 visit Stephanie Hobson Other Hysterectomy Stephanie Hobson Other Screening for malign ant neoplasm of breast Stephanie Hobson Other Plan of Treatment Date Care Activity Detail Author Start: 03-14-2025 Screening for malignant neoplasm of breast Mammogram [facility] Start: 02-16-2025 End: 02-16-2025 Patient encounter procedure 02/16/2025 1:00 PM EST Office Visit [facility] [address] [place] [address] Suze Somers, CNM [address] [place] [address] [facility] Start: 08-18-2024 End: 08-18-2024 Patient encounter procedure 08/18/2024 11:00 AM EDT Office Visit [facility] [address] [place] [id number] Jemal Mcmahon MD [address] [place] [address] [facility] Start: 04-28-2024 Patient referral [facility] Work Phone: Start: 03-14-2024 End: 03-14-2024 Professional / ancillary services management 03/14/2024 3:30 PM EST Ancillary Procedure [facility] [address] [address] [facility] Start: 02-21-2024 Screening for malignant neoplasm of breast Mammogram [facility] Start: 02-12-2024 End: 04-14-2025 DBT Breast - bilateral screening Bilateral screening mammogram with tomosynthesis Imaging Routine Breast cancer screening by mammogram Expected: 02/12/2024, Expires: 04/14/2025 [facility] Work Phone: Comment on above: Expected: 02/12/2024 , Expires: 04/14/2025 Start: 02-04-2024 End: 02-04-2024 Patient encounter procedure 02/04/2024 11:00 AM EST Office Visit [facility] [address] [place] [address] Suze Somers CNM [address] [place], [place] [id number] [facility] Start: 12-01-2023 End: 12-01-2023 Patient encounter procedure 12/01/2023 1:40 PM EDT Office Visit [facility] [address] [facility] [address] [place] [id number] Quita Barney MD [address] [facility] [address] [place] [address] Arrived [facility] Comment on above: Arrived Start: 11-23-2023 Patient referral [facility] Work Phone: Start: 11-01-2023 Influenza vaccination Influenza Vacc ine (#1) [facility] Start: 12-06-2022 Bacteria identified in Urine by Culture [facility] Start: 2010 Screening for malignant neoplasm of cervix [facility] Start: 2001 Screening for malignant neoplasm of cervix Pap Smear [facility] Patient referral [facility] Work Phone: XR Wrist - left GE 3 Views [facility] Immunizations Immunization Date Immunization Notes Care Provider Fa ed 03-11-2021 influenza virus vaccine, unspecified formulation Quita Barney MD Work Phone: [facility] 12-28-2019 influenza virus vaccine, split virus (incl. purified surface antigen) Stephanie Hobson Other [facility] Other 12-28-2019 influenza virus vaccine, unspecified formulation [facility] 12-15-2013 tetanus and diphther ia toxoids, adsorbed, preservative free, for adult use (5 Lf of tetanus toxoid and 2 Lf of diphtheria toxoid) Stephanie Hobson Other [facility] Payers Date Payer Category Payer Blue [employer] Blue [employer] BCBS [id number] 2022 Unknown 1980 Unknown [id number] 647 1980 Unknown [id number]. 593 1980 Unknown [id number] [id number]. 593 1980 Unknown [id number] [id number]. 593 1980 Unknown [id number] [id number]. 593 1980 Unknown [id number] [id number]. 1259 1980 Unknown [id number] [id number]. 1259 1980 Unknown [id number] [id number]. 1259 1980 Unknown [id number] [id number]. 1259 1959 [facility] [id number] Medicaid Medicaid [id number] Private Health Insurance [facility] [id number] Self-pay Self Pay [id number] Unknown [employer] BC/BS ANTONIO [id number] Social History Date Type Detail Facility Start: 02-02-2023 End: 05-25-2024 Sex Assigned At [facility] Other Start: 1980 Sex Assigned At Female [facility] Start: 02-02-2023 End: 02-16-2023 Tobacco smoking status NHIS Never smoked tobacco (finding) [facility] Start: 02-02-2023 Tobacco use and exposure Smokeless tobacco non-user [facility] Start: 02-02-2023 End: 05-25-2024 Alcoholic beverage intake Ex-drinker (finding) [facility] Start: 02-02-2023 End: 05-25-2024 History of Social function [facility] Start: 01-13-2023 Alcohol Comment Occasional alcohol use. Caffeine: 1-2 cups per day [facility] Start: 08-21-2022 Gender identity Identifies as female gender (finding) [facility] Start: 08-21-2022 Sexual orientation Heterosexual (finding) [facility] Start: 04-28-2024 Sex Female (finding) [facility] Clinical Notes 06-14-2021 to 05-25-2024 Pavan Rodriguez DO - 05/25/2024 2:00 PM Gunner Somers CNM - 02/12/2024 1:00 PM EST Note Date & Type Note Facility 05-25-2024 History of Presen t illness Narrative Images from the original note were not included. Sahara Gipson 1980 Sahara Gipson is a 43 y.o. female presents with chief complaint of Breast consult for mastodynia HPI: HPI Sahara states she has a history of breast cyst. She had her yearly mamm's in March and developed left breast pain that has woken her at night. She states the pain is intermittent, but has gotten a little better recently. She denies any nipple discharge or skin changes. SUBJECTIVE: MEDICATIONS: ALLERGIES Current Outpatient Medications Medication Instructions cetirizine (ZYRTEC) 5 mg, Oral ergocalciferol (VITAMIN D2) 1.25 mg, Oral, Weekly fluticasone (Flonase) 50 MCG/ACT nasal spray 1 spray, Each Nostril, Daily, Shake gently. Before first use, prime pump. After use, clean tip and replace cap. levothyroxine (SYNTHROID, LEVOXYL) 125 mcg, Oral, Every 24 hours Allergies Allergen Reactions Cephalosporins Itching Other Reaction(s): CEPHALOSPORINS, Unknown Trimethoprim Other Reaction(s): Dizziness, itching Cephalexin Hives and Rash Sulfa Antibiotics Rash Sulfamethoxazole-Trimethoprim Itching and Rash PAST MEDICAL HISTORY: SOCIAL HISTORY SURGICAL HISTORY: Past Medical History: Diagnosis Date A-fib (CMS/HCC) [...] (CMS/HCC) Hordeolum externum of left lower eyelid MCFP (current) use of 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 Mild persistent asthma, uncomplicated (CMS/HCC) Other seborrheic keratosis Pain in joint of right ankle Patient's intentional underdosing of medication regimen due to financial hardship Peroneal tendinitis, right 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 Caffeine: 1-2 cups per day Drug use: Never Past Surgical History: Procedure Laterality Date COLONOSCOPY 2018 HEEL SPUR EXCISION 2000 heel surgery, r/o bone spur LAPAROSCOPIC HYSTERECTOMY 2017 PLANTAR FASCIA RELEASE WISDOM TOOTH EXTRACTION 2000 wisdom teeth FAMILY HISTORY Family History Problem Relation Name Age of Onset Cancer Mother Asthma Mother severe Other (FM) Mother Deep vein thrombosis Mother Breast cancer Mother Stroke Father Hypertension Father Diabetes Father Arthritis Father Hyperlipidemia Father Other (Pre metabolic syndrome) Father Cervical cancer Sister Asthma Brother Asthma Daughter Heart disease Maternal Grandmother Lung cancer Maternal Grandfather Heart disease Paternal Grandmother REVIEW OF SYMPTOMS: Review of Systems Constitutional: Negative for diaphoresis and unexpected weight change. HENT: Negative for hearing loss, tinnitus and voice change. Breasts: Negative for breast mass and breast discharge. Left breast pain Respiratory: Positive for shortness of breath. Cardiovascular: Negative for chest pain and palpitations. Musculoskeletal: Negative for arthralgias. Neurological: Negative for dizziness, seizures and headaches. All other systems reviewed and are negative. Hematological: Negative for adenopathy. Does not bruise/bleed easily. OBJECTIVE: Visit Vitals OB Status Hysterectomy Smoking Status Never Physical Exam Exam conducted with a web services architect present. HENT: Head: Normocephalic. Cardiovascular: Rate and Rhythm: Normal rate and regular rhythm. Pulmonary: Effort: Pulmonary effort is normal. Breath sounds: Normal breath sounds. Chest: Comments: Bilateral supraclavicular, infraclavicular, bicipital and axillary lymph nodes were found to be normal. Each breast was examined in the sitting and supine position, there was no evidence of masses, dimpling or discharge in either breast Abdominal: General: Abdomen is flat. Bowel sounds are normal. Palpations: Abdomen is soft. Skin: General: Skin is warm and dry. Neurological: Mental Status: She is alert. ASSESSMENT AND PLAN: Assessment/Plan Problem List Items Addressed This Visit Rufus Shoemaker had a normal mammogram in March and developed left breast pain following the exam. Today's exam is normal. I reassured her of the negative findings, we discussed a possible left breast US but at this time I don't see an indication for it. If the breast pain persists we can reconsider additional imaging. She is feeling better about things after the visit and will follow up with her PCP for routine mamm's and contact me PRN documented in this encounter [facility] 02-12-2024 History of Presen t illness Narrative [...] wnl - hpv Last mammogram 02/14/2021 wnl [employer] complaints: no Changes in healthsince last visit: no Surgeries or hospitalizations since last visit: no control method: hysterectomy Menses: Last pap: 01/27/22 Other: History: Past Medical History: Diagnosis Date A-fib ([facility]/HCC) Acute asthmatic bronchitis ([facility]/HCC) Ankle instability, right Atrial fibrillation, unspecified type (CMS/HCC) BMI 36.0-36.9,adult Breast cancer screening by mammogram Cavovarus deformity of foot, acquired, right Contracture of ankle Environmental and seasonal allergies Equinus contracture of right ankle ETD (Eustachian tube dysfunction), left Family history of breast cancer in mother GERD without esophagitis Graves disease (CMS/HCC) Hordeolum externum of left lower eyelid MCFP (current) use of 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 Mild persistent [...] 02/12/2024 1:05 PM documented in this encounter [facility] 02-01-2024 Evaluation note Diagnosis Onset Date Resolution Knee pain, bilateral acute Dece 2023 9:19am Viral URI with cough acute Dece 2023 9:19am Bronchitis acute February 05, 2024 10:56am Breast pain, left acute Februar y 2024 9:58am Left wrist pain acute April 28, 2024 9:58am [facility] Work Phone: [phone]) 727-855310-01-2024 History of Present illness Narrative* Quita Barney MD - 12/01/2023 1:40 PM EDT Subjective Patient ID: Sahara Gipson is a 43 y.o. female who presents for Ear Problem (O) and Otitis Media (Earinfection) Pt developed left ear pain and hearing [...] (CMS/HCC) Hordeolum externum of left lower eyelid long term (current) use of 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 Mild persistent [...] time without further tx [id number] Evaluation note* Encounter Date Diagnosis Assessment Notes Treatment Notes Treatment Clinical Notes Jan, Acute pharyngitis, unspecified etiology (ICD-10 - J02.9) Finish antibiotics as prescribed. Rest, fluids, call if symptoms continue [facility] Other 11-13-2023 Evaluation note* Encounter Date Diagnosis Assessment Notes Treatment Notes Treatment Clinical Notes Dec, PAULINE (obstructive sleep apnea) (ICD-10 - G47.33) Order to [facility] sleep disorder center completed - loud snorking obesity, fatigue and gasping at night. Order and note faxed to their office. [facility] Other 11-13-2023 Evaluation note* Encounter Date Diagnosis Assessment Notes Treatment Notes Treatment Clinical Notes Dec, PAULINE (obstructive sleep apnea) (ICD-10 - G47.33) Order to [facility] sleep disorder center completed - Her signs and symptoms are: loud snoring, obesity, fatigue and gasping at night. Order and note faxed to their office. [facility] Other 04-15-2023 History general Narrative - Reported* [...] OVARY REMOVED Hospitalization History child X's 2 [facility] Other 04-07-2023 Evaluation note* Encounter Date Diagnosis [...] (neg for stone) will pursue GB US. [facility] Other 04-25-2022 Evaluation note* Encounter Date Diagnosis Assessment Notes Treatment Notes Treatment Clinical Notes May, Acute sinusitis, recurrence not specified, unspecified location (ICD-10 - J01.90) Drink plenty fluids, get plenty of rest. Continue your Z-Tera as prescribed. Use the Flonase inhaler as prescribed until symptoms improve. Follow-up with your family physician if no improvement in 2 to 3 days. [facility] Other 04-15-2022 History general Narrative - Reported* Type Description Date Medical History graves disease Medical History BROWN 14.2 mCI 06/14 Medical History hypothyroidism, post ablative Surgical History oral surgery Surgical History RT heel surgery Hospitalization History child X's 2 [facility] Other Evaluation noteNo assessment information available [facility] Work Phone: Evaluation noteNo InformationNort [employer] Other Evaluation note* Diagnosis Onset Date Resolution Status Sinusitis, acute maxillary a cute [facility] Work Phone: Evaluation note* Diagnosis Onset Date Resolution Status Sinusitis, acute maxillary a cute Chronic otitis media of left ear with effusion acute [facility] Work Phone: Evaluation note* Diagnosis Acute suppurative otitis media of left ear without spontaneous rupture of tympanic membrane, recurrence not specified- Primary Chronic mastoiditis of left side ETD (Eustachian tube dysfunction), left [facility] Diagnosis Normal gynecologic examination Breast cancer screening by mammogram [facility] Diagnosis Mastodynia documented in this encounter [facility] general [...] OVARY REMOVED Hospitalization History child X's 2 [facility] Other Hisnixq general Narrative - Reported* Type Description Date [...] surgery 11/2022 Hospitalization History child X's 2 [facility] Other Hospital Discharge instructionsAmbulatory Orders* Referral to ENT Time Frame: 11/23/23, Location: None [facility] Work Phone: Hospital Discharge instructionsAmbulatory Orders* Referral to General Surgery Time Frame: 04/28/24, Location: None [facility] Work Phone: Summary Purpose Family History No [...] otitis media of left ear with effusion Chief Complaint Admit Date cough, congestion, fever, headache, knee pain February 01, 2024 9:19am Cough February 05, 2024 1 0:56am pain in left breast April 28, 2024 9:58am Reason for Visit Admit Date Knee pain, bilateral February 01, 2024 9:19am Viral URI with cough February 01, 2024 9:19am Bronchitis February 05, 2024 1 0:56am Breast pain, left April 28, 2024 9:58am Left wrist pain April 28, 2024 9:58am Reason for Referral Reason [place] office. Former pt of [facility]'s office. Insurance will not cover podiatry. R lateral ankle pain and likely plantar fasciitis. Diagnosis 1 Pain in right ankle and joints of right foot (M25.571) Referral Organization [facility] cornelia Referring Provider First Name Cristina Referring Provider Last Name Denis Referring Provider Specialty [facility] Referred Organization [facility] Referred Provider Weston Dumont Referred Address ,[place], [place],[address] Referred Provider Specialty Orthopedic S urgery Referral Priority Routine Additional Source Comments INFORMATION SOURCE (unrecogn ized section and content) DATE CREATED AUTHOR 05/12/2018 [facility] DATE CREATED AUTHOR AUTHOR'S ORGANIZ ATION 02/26/2022 [facility] DATE CREATED AUTHOR AUTHOR'S ORGANIZ ATION 12/09/2022 [facility] DATE CREATED AUTHOR AUTHOR'S ORGANIZ ATION 05/26/2024 [facility] EPIC REASON FOR VISIT (unrecogniz ed section and content) Reason Comments Ear Problem O Otitis Media Ear infection Reason Comments Gynecologic Exam Reason Comments Breast consult for mastodynia Specialty Diagnoses / Procedures Referred By Patricia t Referred To Contact General Surgery Diagnoses Mastodynia Procedures [place] OFFICE/OUTPATIENT [facility] MDM 60 MINUTES Cristina Barrios MD [address] [place] [address] Phone: tel: fax: [facility] [address] [facility] [address] [place] [address] Phone: tel: fax: Referral ID Status Reason Start Date Expiration Date V isits Requested Visits Authorized [id number] Closed Specialty Services Required 05/02/2024 10/29/2024 1 1 Care Teams (unrecognized sec tion and content) [...] November 23, 2023 End: November 23, 2023 Household Appliances Service Technician Relationship Specialty Start Date End Date Cristina Barrios MD [address] [place] [address] PCP - General Family Medicine 11/25/23 Household Appliances Service Technician Relationship Specialty Start Date End Date Cristina Barrios MD [address] [place] [address] PCP - General Family Medicine 11/25/23 Household Appliances Service Technician Relationship Specialty Start Date End Date Cristina Barrios MD [address] [place] [address] PCP - General Family Medicine 11/25/23 Team Status: Inactive Member Role Status Dates Cristina Barrios MD Primary Care Provider Active Start: February 01, 2024 End: February 01, 2024 Stephanie Hobson APRN Attending Provider Active Start: February 01, 2024 End: February 01, 2024 Team Status: Inactive Member Role Status Dates Cristina Barrios MD Primary Care Provider Active Start: February 05, 2024 End: February 05, 2024 Luz Maria Dickerson APRN FIELD ADJUSTER-C Attending Provider Active Start: February 05, 2024 End: February 05, 2024 Team Status: Inactive Member Role Status Dates Cristina Barrios MD Primary Care Provide r, Attending Provider Active Start: April 28, 2024 End: April 28, 2024 Household Appliances Service Technician Relationship Specialty Start Date End Date Cristina Barrios MD [address] [place] [address] PCP - General Family Medicine 11/25/23 Goals [...] BE BASED ON THE PRIMARY CLINICAL RECORDS. [facility]. provides no warranty or guarantee of the accuracy or completeness of information in this document.
== END 2024-08-12 17:51 | disposition home or self-care (01) ==
PROVIDERS: PCP Family Medicine; Visit Provider Family Medicine
DX: M79.89 Other specified soft tissue disorders (principal)
CPT/HCPCS: 93971

== ENCOUNTER 2025-02-27 09:01 | Outpatient (OUT) | payer BC, SELFPAY ==
--- NOTE | 2025-02-27 | XR_ITS ---
The [address] [address] Patient Name: RUBIA GIPSON MRN: [id number] date: 1980 Sex: F Assigned Patient Location: [facility] Current Patient Location: [facility] Accession/Order Number: [id number] Exam Date: 02/27/2025 10:21 Report Date: 02/27/2025 11:06 At the request of: HASEEB LANDRY DO Procedure: XR elbow LT 2V LEFT ELBOW - 2 VIEWS CLINICAL HISTORY: Left posterior elbow pain and swelling for the past few months. No injury. M25.522 COMPARISON: None AP and lateral views were obtained. There is no evidence of fracture or dislocation. There are no significant soft tissue abnormalities. There is no elbow effusion. XR/XR elbow LT 2V IMPRESSION: NO ACUTE BONY FINDINGS. Impression dictated by: Courtney Rodríguez M.D. 02/27/2025 11:06 AM Dictation Location: [place] [address] Electronically authenticated by: [id number] Y Date: 02/27/2025 11:06
--- OUTSIDE RECORDS SUMMARY | 2025-02-27 09:03 | XMS_ITS | Clinical Summary ---
Author Organization The [facility] Address [address] [place] [address] Care Team Providers Care Wood Barker Name Role Phone Unavailable Primary Care Provider Unavailabl e Social History Tobacco UseTypesPacks/DayYears UsedDateSmoking Tobacco: Never Assessed CommentsUnknownSex and Gender InformationValueDate RecordedSex Assigned at Not on fileLegal QuuZisgvy58/30/2022 12:13 AM EDTGender IdentityNot on file Sexual OrientationNot on file Last Filed Vital Signs Vital SignReadingTime TakenCommentsBlood Svdusjju483/7007 1:45 PM EDT Itnki4928 10:02 AM EDTTemperature--Respiratory Rate--Oxygen Saturation 97%09/06/2018 1:44 PM EDTInhaled Oxygen Concentration--Finbbx609 kg (230 lb) 09/06/2018 1:42 PM OONRkasov974.8 cm (5' 10 )09/06/2018 1:42 PM EDTBody Mass Agluu315509/06/2018 1:42 PM EDT Plan of Treatment Not on file
--- OUTSIDE RECORDS SUMMARY | 2025-02-27 09:03 | XMS_ITS | Clinical Summary ---
Author Organization [facility] Address [address] [place] [address] Care Team Providers Care Terminal Block Assembler Name Role Phone Cristina Finnegan MD Primary Care Provider Allergies Active AllergyReactionsCriticalityNoted DateCommentsCephalexinHives,RashLow 11/11/20087501AooxsvzwtwkgcvVyrglul02/23/2024 Other Reaction(s): CEPHALOSPORINS, Unknown Sulfa AgthieuabboBmtyWkv94/04/2023Sulfamethoxazole-TrimethoprimItching,RashLow 02/02/20233714Cxjqakipwsuy33/23/2024 Other Reaction(s): Dizziness, itching Medications MedicationSigDispense QuantityRefillsLast FilledStart DateEnd DateStatus fluticasone (Flonase) 50 MCG/ACT nasal spray Administer 1 spray into each nostril Daily Shake gently. Before first use, prime pump. After use, clean tip and replace cap.Active cetirizine (ZyrTEC) 10 MG tablet Take 5 mg by mouthActive albuterol HFA 90 mcg/act inhaler 4Active levothyroxine (Synthroid, Levoxyl) 125 MCG tablet Indications:Postoperative hypothyroidismTAKE ONE TABLET BY MOUTH EVERY MORNING ON AN EMPTY STOMACH 90 tablet 5Active ergocalciferol (Vitamin D2) 1.25 MG (85664 UT) capsule Indications:Vitamin D deficiencyTAKE 1 CAPSULE BY MOUTH ONCE WEEKLY 12 capsule 5Active Active Problems ProblemNoted DateDiagnosed PxgtOdecoxdzbo83/26/2025Acute suppurative otitis media of left ear without spontaneous rupture of tympanic lbngqyty90/01/2024 Encounters DateTypeDepartmentCare EpbzBjkvpuultjy83/08/2025Refill [facility] [address] [place] [address] Jemal Jeffery MD Vitamin D deficiencyfrom Last 3 Months Family History Medical HistoryRelationNameCommentsAsthmaBrotherAsthmaDaughter 1ArthritisFather DiabetesFatherHyperlipidemiaFatherHypertensionFatherPre metabolic syndromeFather StrokeFatherLung cancerMaternal GrandfatherHeart diseaseMaternal Grandmother AsthmaMothersevereBreast cancerMotherCancerMotherDeep vein thrombosisMotherFM MotherHeart diseasePaternal GrandmotherCervical cancerSisterColon cancerNeg Hx Ovarian cancerNeg HxPancreatic cancerNeg HxRelationNameStatusCommentsBrother Uunrvvzj5Udxbwhbv 1AliveDaughter 2AliveFatherAliveMaternal GrandfatherDeceased Maternal GrandmotherDeceasedMotherAlivePaternal GrandmotherDeceasedSister Deceased1 Social History Tobacco UseTypesPacks/DayYears UsedDateSmoking Tobacco: NeverSmokeless Tobacco: Never Tobacco Cessation:Counseling Given: Not Answered Alcohol UseStandard Drinks/WeekCommentsNot Currently0 (1 standard drink = 0.6 oz pure alcohol)Occasional alcohol use. Caffeine: 1-2 cups per dayComments NoSex and Gender InformationValueDate RecordedSex Assigned at BirthFemale 08/21/2022 4:32 PM EDTLegal JhiXliigq80/15/2023 7:28 PM EDTGender IdentityFemale 08/21/2022 4:32 PM EDTSexual CwwimxofagkKfwbzwbj11/22/2023 4:32 PM EDT Last Filed Vital Signs Vital SignReadingTime TakenCommentsBlood Bavxoenf782/8012 1:08 PM EST Gdfhl203308/18/2024 11:39 AM EDTTemperature--Respiratory Almn013908/18/2024 11:39 AM EDTOxygen Mbqwtmpvdr21%08/18/2024 11:39 AM EDTInhaled Oxygen Concentration-- Dcjzqc791 kg (258 lb)08/18/2024 11:39 AM CSQTdimpg296.5 cm (5' 9.5 )08/18/2024 11:39 AM EDTBody Mass Index37.55008/18/2024 11:39 AM EDT Plan of Treatment DateTypeDepartmentCare Team (Latest Contact Info)Georhawbbls23/20/2026 4:00 PM ESTOffice Visit MASHA Diaz [facility] [address] [place] [address] Randa Somers CNM [address] [place], [place] [id number] 08/17/2025 11:00 AM EDTOffice Visit [facility] [address] [place] [address] Jemal Jeffery MD [address] [place] [address] Health MaintenanceDue DateLast DoneCommentsPap Smear2001Cervical Cancer Edbszmtpb67/26/2011HPV/Cryoer0310/25/2010Influenza Vaccine (#1)2024 03/11/2021, 12/28/2019, 11/23/2018, Additional history pvkcwaXiefjfjlo00/13/2026 03/14/2024, 02/20/2023, 02/17/2022, Additional history existsPneumococcal Vaccine: Pediatrics (0 to 5 Years) and At-Risk Patients (6 to 64 Years)Aged Out No longer eligible based on patient's age to complete this topic Procedures Procedure NamePriorityDate/TimeAssociated DiagnosisCommentsBI MAMMOGRAM SCREENING TOMOSYNTHESIS PTPEAJLGJMtkrcnt76/13/2025 4:02 PM EST Breast cancer screening by mammogram from Last 3 Months or Most Recently Relevant to Health Maintenance Results * Bilateral screening mammogram with tomosynthesis (03/14/2024 4:02 PM EST) Anatomical RegionLateralityModalityBreastBilateralMammographySpecimen (Source) Anatomical Location / LateralityCollection Method / VolumeCollection Time Received Time03/16/2024 9:31 AM EST Impressions 03/16/2024 9:38 AM [...] thickening which would be suggestive of malignancy. ?? A few benign-appearing calcifications are noted bilaterally. [...] Mammogram ELECTRONICALLY SIGNED BY: Wili Mak M.D. Authorizing ProviderResult TypeResult StatusValerifariha Somers [facility] BI PROCEDURES Final Result from Last 3 Months or Most Recently Relevant to Health Maintenance Insurance Care Teams Team MemberRelationshipSpecialtyStart DateEnd Date Cristina Finnegan MD [address] [place] [phone] PCP - GeneralFamily Medicine11/25/23
--- OUTSIDE RECORDS SUMMARY | 2025-02-27 09:11 | XMS_ITS | CCD ---
Author Organization [facility] CliniSynh Care Team Providers Care Air Vice Marshal Name Role Phone PHYSICIAN, DEFAULT Admitting Unavailable PHYSICIAN, DEFAULT Attending Unavailable Draia Lawler Unavailable MD Fatoumata Barrios Primary Care Provider MD Fatoumata Barrios Attending Provider EMMANUEL, DR GORDON Admitting Unavailable KARASIK, DR GORDON Attending Unavailable DENIS, DR FATOUMATA Garces Primary Care Unavailable KARMADISON, DR GORDON Consulting Unavailable ZIEBER, DR KARIS Rivers Consulting Unavailable LISANDRO, JEMAL Admitting Unavailable JEMAL MCMAHON Attending Unavailable DENIS, DR FATOUMATA Garces Primary Care Unavailable LISANDRO, JEMAL Consulting Unavailable DENIS, DR FATOUMATA Garces Admitting Unavailable BARRIOS, DR FATOUMATA Garces Attending Unavailable BARRIOS, DR FATOUMATA Garces Primary Care Unavailable BARRIOS, DR FATOUMATA Garces Consulting Unavailable KARASIK, DR GORDON Admitting Unavailable KARASIK, DR GORDON Attending Unavailable BARRIOS, DR FATOUMATA Garces Primary Care Unavailable KARMADISON, DR GORDON Consulting Unavailable Fatoumata Barrios Unavailable KIMBERLY Hobson Attending Provider Stephanie Hobson Unavailable Fatoumata Barrios MD Primary Care Provider Fatoumata Barrios MD Primary Care Provider [phone] MANNY RODRIGUEZ Attending Unavailable FATOUMATA BARRIOS Referring Unavailable JEMAL MCMAHON F Attending Unavailable LISBETH BARNEY Attending Unavailable FATOUMATA BARRIOS Referring Unavailable SUZE SOMERS Attending Unavailable SUZE SOMERS Referring Unavailable Fatoumata Barrios MD Primary Care Provider Fatoumata Barrios MD Attending Provider [phone] Mehdi GUEVARA-C, Kim Rivers Attending Provider Greg Wheat MD Attending Provider Fatoumata Barrios Primary Care Unavailable Greg Wheat Attending UnavailGreg Metzger Admitting Fatoumata Orellana MD Primary Care Provider Alexia Adkins APRN Attending Provider Fatoumata Barrios MD Primary Care Provider Christi Priest RD Attending Provider Fatoumata Gould MD Primary Care Provider Alexia Adkins APRN Attending Provider Cem GOODWIN, Christi Attending Provider Fatoumata Gould MD Attending Provider [phone] Allergies Allergy ClassificationReported Allergen(s)Allergy TypeDate of OnsetReaction(s) Facility (20 sources)Sulfamethoxazole / TrimethoprimDrug Oruozkk73-50-4143Waffvns, Rash [place] [facility] Other (15 sources)cephalaexinPropensity to adverse jiibeszbe07-90-6106HpwglvdC[facility] (20 sources)Cephalexin; Translations: [cephalexin]Drug Nygzccn92-11-8998GkbvuPomerene Hospital (13 sources)SulfamethoxazoleDrug Wcsevou64-26-4531Qtalkjdkb, Dizziness, itching [facility] (20 sources)TrimethoprimDrug Qkgrwwv47-29-2714Uxpccrqcu, Dizziness, itching [facility] (20 sources)naldaconAllergy to ympczqhqi24-51-7124Gpvn, NALDACON Comment:facial [facility] (12 sources)Cephalosporins (Antibiotic)Drug allergy (disorder)09-03-2016 CEPHALOSPORINS, ItchingThe [facility] RepositoryComment on above:Onset Date: 03/02/2016 (1 source)Chlorpheniramine / Phenylephrine / Phenylpropanolamine / phenyltoloxamineDrug Hlkalow09-32-2503BldTrinity Health System Rep[facility] (1 source)Sulfamethoxazole / TrimethoprimDrug Qwjsqxo77-14-5089Dyq [facility] (6 sources)Seasonal allergyPropensity to adverse hrmoxuduh18-53-5587TBAJFMVF [place] [facility] Other (6 sources)NALDOCONPropensity to adverse czxmkxoik36-28-8260NzyljpwRtbuw [facility].at Other (6 sources)Medicinal cephalosporin and acting as antibacterial agent (FN)Drug itgrehz96-38-9825PHWUZYEFRXSJIUCynof [facility].at Other (6 sources)Sulf-10Drug gbcwiog05-36-8640BmvptorZmnhlopinions.h Other (6 sources)Allergies ReconciledPropensity to adverse reactionsGood Samaritan Hospitalopinions.h Other (6 sources)patient allergy list reviewed by nurse or physiciaPropensity to adverse wywyvdwbi95-78-1773Uzvmrvc:UromedicaWITOI Other (11 sources)Sulfonamides (Antibiotic)Allergy to uuyyelnkn14-95-3574Bzlpb, Dizziness, itchingWayne Healthcare Main CampusComment on above:Onset Date: 04/28/2017 (9 sources)Sulfonamides (Antibiotic)Drug Sgtvjll81-99-1539GxarJJSG Healthcare (8 sources)Cephalosporins (Antibiotic)Drug Zenfapk18-03-3033GuwrhrwCLET Healthcare Medications Current Medications MedicationDrug Class(es)DatesSig (Normalized)Sig (Original)Airborne Gummies (11 sources)Airborne Gummies Not-TakingAirborne Gummies [id number] 200 actuat albuterol 0.09 mg/actuat metered dose inhaler (20 sources)beta2-Adrenergic AgonistStart: 47-98-4612vawpfglmp HFA 90 mcg/act inhaler 04/21/2023 ActiveStart: 30-62-6820drjoorate HFA 90 mcg/act inhaler Every 4 hours 04/21/2023 ActiveStart: 04-21-2023 End: 45-14-5219pgqx 1 puff(s) by inhalation every four hours as neededAlbuterol Sulfate (Ventolin Hfa) 90 mcg/actuation HFA aerosol inhaler Active 1 PUFF INHALATION Every 4 hours as needed November 15, 2024 9:06am FreeTextSi puff as needed Inhalation every 4 hrs; Note: Source Status: Taking; Provider: Denis Evans ( ) Complies with drug therapytake 1 puff(s) by inhalation every four hours as neededVentolin HFA 108 (90 Base) MCG/ACT 1 puff as needed Inhalation every 4 hrs ActiveBiotin (4 sources)Start: 71-92-5100Tmofmh (Hair, Skin And Nails (Biotin)) 10,000 mcg tablet,chewable Active MCG PO November 14, 2024 11:00pm Complies with drug therapyStart: 31-35-0966Wdarr: 57-98-5878Tjfact (Hair, Skin And Nails (Biotin)) 10,000 mcg tablet,chewable Active MCG PO November 15, 2024 12:00am Complies with drug xtkyvyl04 hr buPROPion hydrochloride 100 mg extended release oral tablet (1 source)AminoketoneStart: 03-03-4727tchp 1 tablet by mouth twice daily, then take 2 tablets by mouth two times weeklyBupropion Hcl 100 mg tablet sustained- release 12 hr Active 100 MG PO Twice daily 60 0 January 10, 2025 12:00am start with 1 tab daily for 1 week and if tolerated increase to twice daily week 2 andongoing Complies with drug therapycetirizine hydrochloride 10 mg oral tablet (20 sources)Histamine-1 Receptor AntagonistStart: 04-21-2023 End: 31-98-4243lorw 1 tablet by mouth once daily as neededCetirizine (Zyrtec) 10 mg tablet Active 10 MG PO Daily November 15, 2024 9:07am FreeTextSi ta blet as needed Orally Once a day; Note: Source Status: Taking; Provider: Denis Evans ( ) Complies with drug therapycetirizine (ZyrTEC) 10 MG tablet Take 5 mg by mouth Activeergocalciferol 1.25 mg oral capsule (10 sources)Provitamin D2 CompoundStart: 75-43-0884Wqcvaxjdmyfuwe (Vitamin D2) 1,250 mcg (50,000 unit) capsule Active 55956 UNIT PO EVERY 2 WEEKS November 14, 2024 11:00pm Complies with drug therapyStart: 08-18-2024 End: 25-08-9799lnma 1 capsule by mouth onceergocalciferol (Vitamin D2) 1.25 MG (26797 UT) capsule Indications: Vitamin D deficiency Take 1 capsule (1.25 mg) by mouth every 14 (fourteen) days 6 capsule 3 08/18/2024 07/20/2025 ActiveStart: 04-11-2024 End: 08-93-4125pvyw 1 capsule by mouth every weekergocalciferol (Vitamin D2) 1.25 MG (60889 UT) capsule Indications: Vitamin D deficiency TAKE ONE CAPSULE BY MOUTH ONCE WEEKLY 12 capsule 1 04/11/2024 08/18/2024 Discontinued (Reorder) fluticasone propionate 0.05 mg/actuat metered dose nasal spray (13 sources)CorticosteroidStart: 25-15-7320qrpt 2 spray(s) nasal route once dailyFluticasone Propionate 50 MCG/ACT 2 sprays Nasally Once a day for 14 day(s) May, Activetake 1 spray(s) nasal route once dailyfluticasone (Flonase) 50 MCG/ACT nasal spray Administer 1 spray into each nostril Daily Shake gently. Before first use, prime pump. After use, clean tip and replace cap. Active meloxicam 15 mg oral tablet (7 sources)Nonsteroidal Anti-inflammatory DrugStart: 37-50-9044zhwi 1 tablet by mouth once dailyMeloxicam 15 mg tablet Active 15 MG PO Daily 14 0 January 02, 2025 12:00am Complies with drug therapytake 1 tablet by mouth every twenty-four hoursMeloxicam 15 MG 1 tablet Orally Once a day ActiveMeloxicam Mtzqtd00 hr metFORMIN hydrochloride 500 mg extended release oral tablet (6 sources)BiguanideStart: 03-10-1342qavw 1 tablet by mouth twice dailyMetformin 500 mg tablet extended release 24 hr Active 500 MG PO Twice daily January 02, 2025 3:07pm Complies with drug therapyStart: 12-12-2024 End: 08-10-9167ndcz 1 tablet by mouth every twenty-four hours at breakfast Metformin 500 mg tablet extended release 24 hr Discontinued 500 MG PO .COMPLEX 90 0 December 12, 2024 1:00pm January 02, 2025 3:08pm 500 mg orally Take one tab daily for a week, if any symptoms ofbloating or mild GI symptoms continue 1 tab in morning with breakfast ongoing. If tolerates 1 tab without any difficulty, Increase to 1 tab with breakfast and 1 tab with dinner.;Start: 12-12-2024 End: 27-69-1028fmhy 1 tablet by mouth once dailyMetformin 500 mg tablet extended release 24 hr Discontinued 500 MG PO Daily December 11, 2024 11:00pm December 12, 2024 1:48dgKtohejoz-Oix-Dxm C-Herb No.124 (Airborne Gummy) 250-11.66 mg tablet,chewable (15 sources)Start: 24-88-0528nltq 2 tablets by mouth once cgslqPttansuu-Ejt-Snk C-Herb No.124 (Airborne Gummy) 250-11.66 mg tablet,chewable Active 2 TAB PO Daily November 15, 2024 9:09am Complies with drug therapyStart: 11-15-2024 take 2 tablets by mouth once dailyStart: 22-65-2569nlnx 2 tablets by mouth once ahnypImbynxlp-Vxd-Mib C-Herb No.124 (Airborne Gummy) 250-11.66 mg tablet,chewable Active 2 TAB PO Daily November 15, 2024 10:09am Complies with drug therapyStart: 04-21-2023 End: 77-44-6764myhp 1 tablet by mouth ycltTxsqiklt-Xhq-Yzl C-Herb No.124 (Airborne Gummy) 250-11.66 mg tablet,chewable Discontinued TAB PO April 21, 2023 12:00am November 15, 2024 9:10amStart: 04-21-2023 End: 82-59-3399cguh 1 tablet by mouth ynzkOcjzprsw-Kjs-Wia C-Herb No.124 (Airborne Gummy) 250-11.66 mg tablet,chewable Discontinued TAB PO April 21, 2023 1:00am November 15, 2024 10:10amStart: 61-75-2890brjg 1 tablet by mouth onceStart: 41-68-0216bgnf 1 tablet by mouth rwuiJvxtbgjh-Uwf-Exc C-Herb No.124 (Airborne Gummy) 250-11.66 mg tablet,chewable Active TAB PO 2023 1:00amStart: 35-12-7600wocq 1 tablet by mouth acfvTkeezawz-Qxv-Rrf C-Herb No.124 (Airborne Gummy) 250-11.66 mg tablet,chewable Active TAB PO 2023 12:00amMultivitamin (One Daily Multivitamin) tablet (11 sources)Start: 48-40-1386zgam 1 tablet by mouth once dailyMultivitamin (One Daily Multivitamin) tablet Active 1 TAB PO Daily April 21, 2023 12:00am Complies with drug therapyStart: 38-44-3297ufpc 1 tablet by mouth once daily Multivitamin (One Daily Multivitamin) tablet Active 1 TAB PO Daily April 21, 2023 1:00am Complies with drug therapyStart: 69-86-4260nmxg 1 tablet by mouth once dailyStart: 98-95-8209qiga 1 tablet by mouth once dailyMultivitamin (One Daily Multivitamin) tablet Active 1 TAB PO Daily April 21, 2023 1:00am Start: 82-89-7318goir 1 tablet by mouth once dailyMultivitamin (One Daily Multivitamin) tablet Active 1 TAB PO Daily April 21, 2023 12:00am Multivitamin preparation (11 sources)Multivitamin Not-TakingMultivitamin ActiveVitamin D3 (11 sources)Vitamin D3 Active Completed/Discontinued Medications MedicationDrug Class(es)DatesSig (Normalized)Sig (Original)amoxicillin 500 mg oral tablet (9 sources)Penicillin-class AntibacterialStart: 11-10-2023 End: 08-31-5255nwbl 1 tablet by mouth three times dailyAmoxicillin 500 mg tablet Discontinued 500 MG PO Three times daily 30 0 November 09, 2023 11:00pm November 23, 2023 8:03amazithromycin 250 mg oral tablet (20 sources)Macrolide AntimicrobialStart: 02-05-2024 End: 61-77-9643Qmsvdylwqfsq 250 mg tablet Discontinued 0 PO daily 6 5 0 February 05, 2024 12:00am April 28, 2024 10:12am Bronchitis Bronchitis, not specified as acute or chronic Take 2 on day 1 and then take 1 for the next 4 days (days 2-5)Start: 02-16-2023 End: 14-15-7283uujw 2 tablets by mouth once daily, then take 1 tablet by mouth once dailyAzithromycin 250 mg tablet Discontinued 250 MG PO Daily 6 0 June 30, 2023 10:34am November 10, 2023 1:02pm FreeTextSig: as directed Orally 2 tabs po today, then 1 tab daily x 4 more days; Note:Source Status: Start; Refills: 0; Provider: Denis Evans Echolecalciferol 0.01 mg oral capsule (16 sources)Vitamin DStart: 04-21-2023 End: 08-92-3667dmnk 1 capsule by mouth once dailyCholecalciferol (Vitamin D3) 10 mcg (400 unit) capsule Discontinued 10 MCG PO Daily April 21, 2023 12:00am November 15, 2024 9:09amStart: 14-03-2040zlrs 10 ug by mouth once daily Cholecalciferol (Vitamin D3) Active 10 MCG PO Daily April 21, 2023 1:00am Start: 51-59-9266zjke 10 ug by mouth once dailyCholecalciferol (Vitamin D3) Active 10 MCG PO Daily April 21, 2023 12:00am End: 29-89-2631iiuzswuamfcevju (Vitamin D3) 25 MCG (1000 UT) tablet 1 (one) time each day at the same time 02/12/2024 Discontinued (Therapy completed) dextromethorphan hydrobromide 3 mg/ml / promethazine hydrochloride 1.25 mg/ml oral solution (7 sources)Phenothiazine, Uncompetitive R-onwali-N-aspartate Receptor Antagonist, Sigma-1 AgonistStart: 02-05-2024 End: 49-86-7961avxd 1 mL by mouth every four to six hours as needed for cough Promethazine-Dm 6.25-15 mg/5 mL syrup Discontinued 5 ML PO EVERY 4-6 HOURS as needed for cough 118 5 0 February 05, 2024 12:00am April 28, 2024 10:12am Bronchitis Bronchitis, not specified as acute or chronicdoxycycline hyclate 100 mg oral tablet (8 sources)Tetracycline-class DrugStart: 11-23-2023 End: 56-61-8147ssqs 1 tablet by mouth twice dailyDoxycycline Hyclate 100 mg tablet Discontinued 100 MG PO Twice daily 14 0 November 22, 2023 11:00pm February 01, 2024 10:15amlevothyroxine sodium 0.125 mg oral capsule (20 sources)l-ThyroxineStart: 04-21-2023 End: 98-90-0748enqa 1 capsule by mouth once dailyLevothyroxine 125 mcg capsule Discontinued 125 MCG PO Daily April 21, 2023 12:00am May 10:19amStart: 04-24-2017 End: 33-37-0913fkeu 1 tablet by mouth once dailyLevothyroxine 125 mcg tablet Active 125 MCG PO Daily April 24, 2017 12:00am Complies with drugtherapy take 1 capsule by mouth every twenty-four hoursLevothyroxine Sodium 125 MCG 1 tablet Orally Once a day for 30 ActivemethylPREDNISolone 4 mg oral tablet (7 sources)CorticosteroidStart: 02-05-2024 End: 96-22-4744yvzf 1 tablet by mouth onceMethylprednisolone (Medrol (Tera)) 4 mg tablets,dose pack Discontinued 0 PO per package directions 21 February 05, 2024 12:00am April 28, 2024 10:12am Bronchitis Bronchitis, not specified as acute or chronic PO PER PKG DIROrtho-Cyclen (28) 0.25-35 MG-MCG (5 sources)take 1 tablet by mouth once dailyOrtho-Cyclen (28) 0.25-35 MG-MCG 1 tablet Orally Once a day Not-Takingphenazopyridine hydrochloride 200 mg oral tablet (17 sources)Start: 04-21-2023 End: 49-06-1644ashh 1 tablet by mouth three times daily after mealtime as needed Phenazopyridine 200 mg tablet Discontinued MG PO April 21, 2023 12:00am June 30, 2023 10:21am FreeTextSi tablet after meals Orally Three times a day prn; Note: Source Status: Taking; Refills: 0; Qty: 9 tabs; Provider: Jazlyn Garciatart: 82-58-4980jlzb 1 tablet by mouth three times daily after mealtime as neededPhenazopyridine HCl 200 MG 1 tablet after meals Orally Three times a day prn for 3 days Nov, ActiveStart: 10-07-5135fpow 1 tablet by mouth three times daily after mealtime as neededPhenazopyridine HCl 200 MG 1 tablet after meals Orally Three times a day prn for 3 days Nov, ActivetraMADol hydrochloride 50 mg oral tablet (4 sources)Opioid Agonisttake 1 tablet by mouth every twenty-four hourstraMADol HCl 50 MG 1 tablet as needed Orally Once a day Not-Taking Problems Active Problems Problem ClassificationProblemDateDocumented DateEpisodic/ChronicAbdominal pain (20 sources)Abdominal pain; Translations: [Unspecified abdominal pain]Onset: 02-20-2017 Resolved: 200373-59-9602YvqbjpzdXoxlmza on above:Problem List clean-up per request of Phys. EHR CmteAcquired foot deformities (6 sources)Acquired deformity of right foot; Translations: [Other acquired deformities of right foot]EpisodicAdministrative/social admission (15 sources)Problems in relationship with spouse or partner; Translations: [Partner relationship problem]Onset: 298353-13-3604TtjuypdgXhoxnbs disorders (7 sources)Needle phobia; Translations: [Fear of injections and transfusions] 78-64-0529UgkhkgiDbdvww (20 sources)Uncomplicated mild persistent asthma; Translations: [Mild persistent asthma, uncomplicated]03-08-6897ViocyyaEdacprn dysrhythmias (6 sources)Atrial fibrillation; Translations: [Unspecified atrial fibrillation] ChronicChronic obstructive pulmonary disease and bronchiectasis (8 sources)Bronchitis; Translations: [Bronchitis, not specified as acute or chronic]58-03-5413NaollvwkOqunxfkwogrjs of surgical procedures or medical care (17 sources)Postoperative hypothyroidism; Translations: [Postprocedural hypothyroidism]Onset: 20-81-0088BphygjmOdirqqvwdf disorders (16 sources)Gastroesophageal reflux disease; Translations: [Gastro-esophageal reflux disease without esophagitis]ChronicGenitourinary symptoms and ill-defined conditions (16 sources)Dysuria; Translations: [History of urinary tract infection]Onset: 67-19-7361PoxrlcrtRatbvglgorae; infection of eye (except that caused by tuberculosis or sexually transmitteddisease) (6 sources)External hordeolum; Translations: [Hordeolum externum left lower eyelid]EpisodicInflammatory diseases of female pelvic organs (6 sources)Female pelvic peritoneal adhesions; Translations: [Female pelvic peritoneal adhesions (postinfective)]EpisodicMycoses (6 sources)Tinea corporis; Translations: [Tinea corporis]EpisodicNonmalignant breast conditions (20 sources)Pain of breast; Translations: [Mastodynia]Onset: 11-10-2006 Resolved: 164591-74-2325CdipatlfPeabtrmsrsp deficiencies (10 sources)Vitamin D deficiency, unspecified; Translations: [Vitamin D deficiency]Onset: 861637-17-8004NiihxjqGligr acquired deformities (6 sources)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; Translations: [Contracture, right ankle]ChronicOther aftercare (6 sources)Long-term current use of inhaled steroid; Translations: [shelter (current) use of 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]EpisodicOther circulatory disease (6 sources)Elevated blood-pressure reading without diagnosis of hypertension; Translations: [Elevated blood-pressure reading, without diagnosis of hypertension]EpisodicOther circulatory disease (7 sources)H/O: atrial fibrillation; Translations: [Personal history of other diseases of the circulatory system]87-60-8136LbvwdfvgBmhtd connective tissue disease (6 sources)Muscle pain; Translations: [MYALGIA, UNSPECIFIED SITE]EpisodicOther connective tissue disease (6 sources)Peroneal tendinitis; Translations: [Peroneal tendinitis, right leg] EpisodicOther connective tissue disease (14 sources)Swelling of right lower limb; Translations: [Other specified soft tissue disorders]94-56-1530NghqwolxCkiyu connective tissue disease (6 sources)Lateral epicondylitis of left humerus; Translations: [Lateral epicondylitis, left elbow]EpisodicOther non-traumatic joint disorders (16 sources)Arthralgia of the ankle and/or foot; Translations: [Pain in right ankle and joints of right foot]EpisodicOther non-traumatic joint disorders (1 source)Pain in right ankle and joints of right footEpisodicOther non- traumatic joint disorders (6 sources)Arthralgia of the lower leg; Translations: [Pain in left knee] EpisodicOther non-traumatic joint disorders (6 sources)Instability of joint of right ankle; Translations: [Other instability, right ankle]EpisodicOther non-traumatic joint disorders (12 sources)Pain in right knee; Translations: [Pain in both knees]02-01-2024 EpisodicOther non-traumatic joint disorders (1 source)Pain in wrist; Translations: [Pain in left wrist]12-24-5181Nuygaurt Other non-traumatic joint disorders (1 source)Pain in left wrist; Translations: [Pain in joint, forearm]04-28-2024 EpisodicOther non-traumatic joint disorders (6 sources)Pain of left wrist; Translations: [Pain in left wrist]04-28-2024 EpisodicOther nutritional; endocrine; and metabolic disorders (20 sources)Obesity; Translations: [Obesity, unspecified]Onset: 10-16-2015 45-60-5930JgsfjosJqoun nutritional; endocrine; and metabolic disorders (11 sources)Obese class I; Translations: [Body mass index (BMI) 33.0-33.9, adult]ChronicOther nutritional; endocrine; and metabolic disorders (12 sources)Obese class II; Translations: [Body mass index (BMI) 35.0-35.9, adult]ChronicOther nutritional; endocrine; and metabolic disorders (4 sources)Obesity caused by energy imbalance; Translations: [Class 2 obesity due to excess calories without serious comorbidity with body mass index (BMI) of 37.0 to 37.9 in adult]26-79-1038EichwmeXxpnl nutritional; endocrine; and metabolic disorders (7 sources)Body mass index 30+ - obesity; Translations: [Obesity, unspecified] 62-26-0493UoxpowkNrmkt nutritional; endocrine; and metabolic disorders (1 source)Weight increasedEpisodicOther screening for suspected conditions (not mental disorders or infectious disease) (10 sources)Encounter for screening mammogram for malignant neoplasm of breast; Translations: [Encounter for screening for malignant neoplasm of cervix]Onset: 22-38-1577ExhyrnpbObwfu skin disorders (6 sources)Other seborrheic keratosis; Translations: [Seborrheic keratosis] EpisodicOther upper respiratory disease (12 sources)Allergic rhinitis; Translations: [Other allergic rhinitis]Onset: 06-17-2013 Resolved: 98-33-6699WesxubzRrehv upper respiratory infections (6 sources)Chronic sinusitis; Translations: [Chronic sinusitis, unspecified] ChronicOther upper respiratory infections (20 sources)Acute sinusitis, unspecified; Translations: [Acute sinusitis]Onset: 06-17-2013 Resolved: 91-58-1268CvmcpjnhAyxokx media and related conditions (11 sources)Chronic mucoid otitis media of left middle ear; Translations: [Other chronic nonsuppurative otitis media, left ear]52-90-4644PytrxxrSbysttji codes; unclassified (8 sources)Obstructive sleep apnea syndrome; Translations: [Obstructive sleep apnea (adult) (pediatric)]03-58-0802ZhknyeyTyfexfaf codes; unclassified (2 sources)Obstructive sleep apnea (adult) (pediatric)ChronicResidual codes; unclassified (1 source)Family history of malignant neoplasm of breast; Translations: [FAMILY HX MALIG NEOPLASM OF BREAST]Onset: 59-50-0363EsexnkfkKmlamzdq codes; unclassified (1 source)Family history of malignant neoplasm of trachea, bronchus and lung; Translations: [FAM HX MALIG NEOPLSM TRACH BRON LNG]Onset: 39-40-6859Objqyaoq Residual codes; unclassified (1 source)Family history of malignant neoplasm of other genital organs; Translations: [FAM HX MALIG NEOPLSM OTH GENIT ORGN]Onset: 13-30-7171Iojeihmh Residual codes; unclassified (6 sources)Family history of breast cancer; Translations: [Family history of malignant neoplasm of breast]EpisodicResidual codes; unclassified (6 sources)Patient's intentional underdosing of medication regimen due to financial hardship; Translations: [Patient's intentional underdosing of medication regimen due to financial hardship]EpisodicResidual codes; unclassified (6 sources)Tobacco user; Translations: [Tobacco use]EpisodicResidual codes; unclassified (6 sources)Postprocedural state finding; Translations: [Other specified postprocedural states]EpisodicSkin and subcutaneous tissue infections (6 sources)Cellulitis and abscess of trunk; Translations: [Cutaneous abscess of groin]EpisodicThyroid disorders (20 sources)Graves' disease; Translations: [Thyrotoxicosis with diffuse goiter without thyrotoxic crisis or storm]Onset: 05-22-2014 Resolved: 242421-47-4769YjugworJwjwvbitmngq (1 source)R63.5 - Abnormal weight gainUnclassified (4 sources)M77.12 - Lateral epicondylitis, left elbowVaricose veins of lower extremity (1 source)Varicose veins of bilateral lower extremities with pain; Translations: [Varicose veins of bilaterallower extremities with pain]Onset: 09-22-2024 EpisodicViral infection (6 sources)Disease caused by 2019-nCoV; Translations: [COVID-19] Past or Other Problems Problem ClassificationProblemDateDocumented DateEpisodic/ChronicAcute bronchitis (6 sources)Acute bronchitis; Translations: [Acute bronchitis, unspecified]Onset: 15-87-4809KamaylbzPjibvjytcpdmj (6 sources)Endometriosis; Translations: [Endometriosis of pelvic peritoneum, unspecified] Resolved: 93-65-7124Anapmrwsrcqfn and screening for infectious disease (7 sources)Encounter for screening for human papillomavirus (HPV); Translations: [Vaccination given]Onset: 12-15-2013 Resolved: 71-00-2031TcnvumjePqaepfq and fatigue (6 sources)Malaise and fatigue; Translations: [Other malaise and fatigue]Onset: 18-85-5740XzqqdbztNnlkjeemwqe chest pain (6 sources)Chest pain; Translations: [Chest pain, unspecified]Onset: 11-23-2017 Resolved: 69-94-4469DyejoiesZbuqw aftercare (6 sources)History and physical examination, follow-up; Translations: [Encounter for follow-up examination after completed treatment for conditions other than malignant neoplasm] Resolved: 29-88-8599LokpucuqWijyz connective tissue disease (6 sources)Pain in right foot; Translations: [Pain in right foot] Resolved: 61-11-6278ObekmxvcFvmvr ear and sense organ disorders (6 sources)Otalgia; Translations: [Otalgia, unspecified ear]Onset: 05-22-2014 Resolved: 82-47-9217TfhyejaaEtbhs female genital disorders (6 sources)Abnormal uterine bleeding; Translations: [Abnormal uterine and vaginal bleeding, unspecified] Resolved: 96-09-2562RinjywrHjrmh female genital disorders (6 sources)Postcoital bleeding; Translations: [Postcoital and contact bleeding] Resolved: 65-16-5477WgpxhobVsimk female genital disorders (6 sources)Abnormal vaginal bleeding; Translations: [Other specified abnormal uterine and vaginal bleeding]Onset: 08-22-2016 Resolved: 39-94-9574IygjhjfBusyr female genital disorders (6 sources)Other specified conditions associated with female genital organs and menstrual cycle; Translations:[Oth cond assoc w female genital organs and menstrual cycle] Resolved: 78-83-5505OkpizsffYuxzx nutritional; endocrine; and metabolic disorders (6 sources)Abnormal weight gain; Translations: [Abnormal weight gain]Onset: 01-11-2014 Resolved: 94-76-3518KpbujufgBbfrs nutritional; endocrine; and metabolic disorders (6 sources)Overweight; Translations: [Overweight]Onset: 10-16-2015 Resolved: 93-92-7138OelmvpeyJgvyx and delivery including normal (6 sources)Primigravida; Translations: [Supervision of normal first ] Onset: 34-51-7339AzrxtwmhTanduj media and related conditions (20 sources)Dysfunction of left eustachian tube; Translations: [Other specified disorders of Eustachian tube, left ear]Onset: 722632-61-8930Bxmroewt Spondylosis; intervertebral disc disorders; other back problems (6 sources)Low back pain; Translations: [Lumbago]Onset: 05-22-2014 Resolved: 44-36-6154UoxasujvIymjqmamoetb (6 sources)Contraception care education done; Translations: [General counseling for prescription of oral contraceptives]Onset: 12-17-2006 Results Test NameValueInterpretationReference RangeFacilityGlomerular filtration rate (GFR) estimation in non- Americanon 18-40-2858IKH/1.73 sq M.predicted among non-blacks MDRD (S/P/Bld) [Vol rate/Area]104 mL/min/{1.73_m2}[facility]Labor[facility] - Chemistry and Chemistry - challengeOrdered By: Alexia Adkins on 98-39-3820Etbkokygf (Vitamin B12) [Mass/Vol]461 pg/mL [facility] CampusCholesterol [Mass/Vol]202 mg/dLWay[facility] Healthcare Main CampusCholesterol in HDL [Mass/Vol]51 mg/dLWay[facility] Healthcare [facility] CampusCholesterol in LDL [Mass/Vol]132 mg/dLWay[facility] Healthcare Main CampusTriglyceride [Mass/Vol]108 mg/dLWay[facility] Laboratory - Chemistry and Chemistry - challengeon 38-99-7458PBE [Catalytic activity/Vol]108 U/LFkadlec [facility] CenterALT [Catalytic activity/Vol]21 U/[facility] HospitalAST [Catalytic activity/Vol] 20 U/[facility] HospitalBilirubin [Mass/Vol]0.5 mg/dLWay[facility] Healthcare [facility] CampusCalcium [Mass/Vol]9.5 mg/dLWay[facility] Healthcare [facility] CampusChloride [Moles/Vol]101 mmol/[facility] HospitalCO2 [Moles/Vol]24 mmol/[facility] HospitalCreatinine [Mass/Vol]0.73 mg/dLWayne Healthcare Main CampusGlucose [Mass/Vol]101 mg/dLWay[facility] Healthcare [facility] CampusPotassium [Moles/Vol]4.2 mmol/[facility] HospitalProtein [Mass/Vol]7.5 g/dLDayton Children's Hospitalodium [Moles/Vol]138 mmol/[facility] HospitalUrea nitrogen [Mass/Vol]9 mg/dLWayne Healthcare Main CampusNo Panel InformationOrdered By: Alexia Adkins on 237856-Yviviqg Vitamin D Total36.7 ng/mLWayne Healthcare Main CampusVLDL Jzoohcizjzp78 mg/dLWayne Healthcare Main CampusUrine albumin/creatinine ratioon 88-14-5368Uwfoywq/Creatinine (U) [Ratio]4.6 g/dL [facility] CampusUS venous duplex LE BIon 72-89-1101UC [place] [address] Ultrasound Report Signed Patient: Sahara Gipson I MR#: [id number] 22 : 1980 Acct:[id number] Age/Sex: 43 / F ADM Date: 09/22/24 Loc: [facility] Room: Type: [facility] Attending Dr: Greg Wheat MD Ordering Provider: Greg Wheat MD Date of Service: 09/22/24 US/US venous duplex LE BI: I83.813 - Varicose veins of bilateral lower extremities w... Copies to: Greg Wheat MD BILATERAL LOWER EXTREMITY VENOUS DUPLEX INDICATION: Symptomatic varicose veins, leg swelling and leg edema, leg heaviness. PROCEDURE: Color-flow duplex scanning is used to interrogate the deep venous system of the right and left lower extremities. The common femoral vein, femoral vein and popliteal vein show good compressibility with normal proximal and distal augmentation. The calf veins are compressible. US/US venous duplex LE BI IMPRESSION: NO EVIDENCE FOR DEEP VEIN THROMBOSIS OR PROXIMAL SUPERFICIAL THROMBOPHLEBITIS IN THE RIGHT OR LEFT LOWER EXTREMITY. Mild reflux was identified in the right greater saphenous vein. Impression dictated by: Greg Wheat MD,FACS,FSVS 09/22/2024 1:04 PM Dictation Location: [id number] Tech: Maris Gould Transcribed By: PWS 09/22/24 1304 Dictated By: Greg Whaet MD 09/22/24 1303 Signed By: 09/22/24 1304[facility] MAMMOGRAM SCREENING TOMOSYNTHESIS BILATERALon 49-78-7413QR MAMMOGRAM SCREENING TOMOSYNTHESIS BILATERALThis is a summary report. The complete report [...] Screening Mammogram ELECTRONICALLY SIGNED BY: Wili Mak M.D.NormalNot AvailableMG MAMM SCREEN 3D AUGUST CADon 48-60-5768JO MAMM SCREEN 3D AUGUST CADPatient: SAHARA GIPSON I. Exam Date: 02/17/2022 : 1980 Gender:F Ordering : DR EVAN BENITEZ . Admission #: [id number] Family : Order #: [id number] CLICK HERE TO VIEW EXAM RADIOLOGY REPORT [...] lung cancer at age 60. LOCATION: [facility] BREAST COMPOSITION: Heterogeneously dense,which may obscure [...] PALPABLE LUMP SHOULD BE BIOPSIED. Dictated by: Karis Weller M.D. on 02/18/2022 at 12:27 Approved by: Karis Weller M.D. on 02/18/2022 at 12:28[facility] HospitalOG PANEL 2: 30 to 65on 02-04-2022..NormalTrinity Health System Comment on above:Result Comment: Performed at: WBPerformed By: #### [id number] #### [facility] [address] [address] [address] Micha Medina Gdln ACOG Sjzcyvb89-16ZtoqtlChvMercy Memorial HospitalComment on above:Performed By: #### [id number] #### [facility] [address] [address] [address] Micha ProctorDIAGNOSIS:CommentHenry County HospitalComment on above: Result Comment: NEGATIVE FOR INTRAEPITHELIAL LESION OR MALIGNANCY. Performed at: WBPerformed By: #### [id number] #### [facility] [address] [address] [address] Micha ProctorHPV AptimaNegativeNormalNegativeTrinity Health SystemComment on above:Result Comment: This nucleic acid amplification test detects fourteen high-risk HPV types (16,18,31,33,35,39,45,51,52,56,58,59,66,68) without differentiation. Performed at: =GPerformed By: #### [id number] #### [facility] [address] [place] [address] Dr. Micha ProctorHPV Genotype ReflexComSamaritan Hospital on above:Result Comment: Criteria not met, HPV Genotype not performed. Performed at: WBPerformed By: #### [id number] #### [facility] [address] [place] [address] Dr. Micha ProctorMethodology:CommentMercy Health Kings Mills Hospital on above: Result Comment: This liquid based ThinPrep(R) pap test was screened with the use of an image guided system. Performed at: WBPerformed By: #### [id number] #### [address] [address] Dr[address] Micha ProctorNote:CommentMercy Health Kings Mills Hospital on above:Result Comment: The Pap smear is a screening test designed to aid in the detection of premalignant and malignant conditions of the uterine cervix. It is not a diagnostic procedure and should not be used as the sole means of detecting cervical cancer. Both false-positive and false-negative reports do occur. . Performed at: WBPerformed By: #### [id number] #### [facility] [address] [place] [address] Dr. Micha ProctorPerformed by:CommentMercy Health Kings Mills Hospital on above: Result Comment: Rebecca Elliott Bandage Winding Machine Operator (ASCP) Performed at: WBPerformed By: #### [id number] #### [facility] [address] [place] [address] Dr. Micha ProctorSpecimemo adequacy:CommentMercy Health Kings Mills Hospital on above:Result Comment: Satisfactory for evaluation. No endocervical cells are present. This is consistent with a history of hysterectomy. Performed at: WBPerformed By: #### [id number] #### [facility] [address] [place] [address] Dr. Micha Gomez URINEon 64-02-2910OSPBIQU URINECulture Observations: LIGHT GROWTH OF MIXED GENITAL ALLA. NO POTENTIAL PATHOGENS SEEN.NormalThe [facility] HospitalComment on above:Performed By: #### URCX #### [facility] [address] [place] [address] Dr. Micha Madera T3on 02-81-0667ZIXC T32.59 pg/mlLNormal2.18-3.98The [facility] HospitalComment on above:Performed By: #### FT3, TSH #### [facility] [address] [place] [address] Dr. Micha Madera T4on 14-03-9221Nkqr T4 [Mass/Vol]1.34 ng/dLNormal0.76-1.46 [facility] HospitalComment on above:Performed By: #### VITAD, FT4 #### [facility] [address] [place] [address] Dr. Micha AndradeHomo 54-52-6727CCC9.277 uIU/mLCritically low0.470-4.680The [facility] HospitalComment on above:Performed By: #### FT3, TSH #### [facility] [address] [place] [address] Dr. Micha DSOUZA [facility] HospitalComment on above: Result Comment: <0.34 UIU/ml HYPERTHYROID 0.34-5.60 UIU/ml EUTHYROID >5.60 UIU/ml HYPOTHYROIDPerformed By: #### FT3, TSH #### [facility] [address] [place] [address] Dr. Micha ProctorVITAMIN D 25 OHon 08-62-4165BWZ D 25-OH32.2 ng/mLNormalThe [facility] HospitalComment on above:Performed By: #### VITAD, FT4 #### [facility] [address] [place] [address] Dr. Micha VALENTINSEDez [facility]len[facility] HospitalComment on above: Result Comment: <20 ng/mL Vit D deficient 20 - <30 ng/mL Vit D insufficient 30 - 100 ng/mL Vit D sufficient >100 ng/mL Potential ToxicityPerformed By: #### VITAD, FT4 #### [facility] [address] [place], [place] [id number] Dr. Micha Proctor Vital Signs Date TimeVital SignValuePerforming UqptlzqdqTkxvabix60-04-1870 10:34-0500Body .99 cmFatoumata Barrios MD Work Phone: [phone]11-11-2025 10:34-0500 Body mass index (BMI) [Ratio]39.5 kg/v6WfqqbbFatoumata Barrios MD Work Phone: [phone]11-11-2025 10:34-0500 Body upgvvw030.65 kgFatoumata Barrios MD Work Phone: [phone] [place], [place] 9451611-11-2025 10:34-0500 Diastolic blood eebguqyy65 mm[Hg]Fatoumata Barrios MD Work Phone: [phone] [place], [place] 9451611-11-2025 10:34-0500 Heart rate80 /Leonardo Barrios MD Work Phone: [phone]11-11-2025 10:34-0500 Respiratory rate20 /Leonardo Barrios MD Work Phone: [phone] [place], [place] 9451611-11-2025 10:34-0500 SaO2% (BldA) [Mass fraction]99 %Fatoumata Barrios MD Work Phone: [phone] [address]11-11-2025 10:34-0500 Systolic blood ssmhijdr954 mm[Hg]Fatoumata Barrios MD Work Phone: [phone] [place], [place] [address]45[address]11-03-2025 15:04-0500 Body noynuk988.99 cmFatoumata Barrios MD Work Phone: [phone]11-03-2025 15:04-0500 Body mass index (BMI) [Ratio]39.4 kg/t3XgspniFatoumata Barrios MD Work Phone: [phone]11-03-2025 15:04-0500 Body zszurc367.29 kgFatoumata Barrios MD Work Phone: [phone]11-03-2025 15:04-0500 Diastolic blood zzkldbpi89 mm[Hg]Fatoumata Barrios MD Work Phone: [phone] [place], [place] [address]45[address]11-03-2025 15:04-0500 Heart rate80 /Leonardo Barrios MD Work Phone: [phone] [place], [place] [address]45[address]11-03-2025 15:04-0500 Systolic blood uatypvyw436 mm[Hg]Fatoumata Barrios MD Work Phone: [phone] [place], [place] 9451609-16-2025 09:51-0400 Body zekwro053.11 cmFatoumata Barrios MD Work Phone: [phone] [place], [place] 945[address]09-16-2025 09:51-0400 Body mass index (BMI) [Ratio]38.6 kg/y3LctitkFatoumata Barrios MD Work Phone: [phone] [place], [place] 945[address]09-16-2025 09:51-0400 Body .55 kgFatoumata Barrios MD Work Phone: [phone] [place], [place] 945[address]09-16-2025 09:51-0400 Diastolic blood rgmalkij05 mm[Hg]Fatoumata Barrios MD Work Phone: [phone] [place], [place] 945[address]09-16-2025 09:51-0400 Heart rate67 /Leonardo Barrios MD Work Phone: [phone] [place], [place] 945[address]09-16-2025 09:51-0400 Respiratory rate18 /Leonardo Barrios MD Work Phone: [phone] [place], [place] 945[address]09-16-2025 09:51-0400 SaO2% (BldA) [Mass fraction]97 %Fatoumata Barrios MD Work Phone: [phone] [place], [place] 945[address]09-16-2025 09:51-0400 Systolic blood qkgpuhbe183 mm[Hg]Fatoumata Barrios MD Work Phone: [phone] [place], [place] [address]45[address]07-24-2025 09:05-0400 Body zupctr520.8 cmFatoumata Barrios MD Work Phone: [phone]07-24-2025 09:05-0400 Body mass index (BMI) [Ratio]37 kg/m9CqnbxxFatoumata Barrios MD Work Phone: [phone]07-24-2025 09:05-0400 Body qzlietcbftd28.2 [degF]Fatoumata Barrios MD Work Phone: [phone] [place], [place] 945[address]07-24-2025 09:05-0400 Body fwgors467.02 kgFatoumata Barrios MD Work Phone: [phone] [place], [place] [address]45[address]07-24-2025 09:05-0400 Diastolic blood usvuvwru98 mm[Hg]Fatoumata Barrios MD Work Phone: [phone] [place], [place] [address]45[address]07-24-2025 09:05-0400 Heart rate70 /Leonardo Barrios MD Work Phone: [phone] [place], [place] [address]451607-24-2025 09:05-0400 Respiratory rate16 /Leonardo Barrios MD Work Phone: [phone] [place], [place] [address]07-24-2025 09:05-0400 SaO2% (BldA) [Mass fraction]98 %Fatoumata Barrios MD Work Phone: [phone]07-24-2025 09:05-0400 Systolic blood pwymwekw961 mm[Hg]Fatoumata Barrios MD Work Phone: [phone]06-19-2025 11:39-0400 Body oxjcux621.5 Vimal Mcmahon MD Work Phone: [facility] HospitalIgzlaowebp98-32-9185 11:39-0400Body mass index (BMI) [Ratio]37.55 kg/w6ApbowJemal Mcmahon MD Work Phone: [facility]OC[facility] CenterLrrsyilqan41-37-3152 11:39-0400Body zqmupu342.03 Scooter Mcmahon MD Work Phone: [facility] HospitalYvqmorktap02-99-9021 11:39-0400Heart rate81 /min Jemal Mcmahon MD Work Phone: [facility]OC[facility] CenterOsupkgxdpb87-38-4594 11:39-0400Respiratory rate16 /minJemal Mcmahon MD Work Phone: [facility]OC[facility] CenterUhqgfcbsob72-21-3561 11:39-9647CaK2% (BldA) [Mass fraction]96 %Jemal Mcmahon MD Work Phone: [facility] HospitalAphgedicwh44-12-0340 10:12-0400Body temperature 97.8 [degF]Fatoumata Barrios MD Work Phone: [phone]06-18-2025 10:12-0400 Diastolic blood tshrsxuu61 mm[Hg]Fatoumata Barrios MD Work Phone: [phone]06-18-2025 10:12-0400 Heart rate73 /Leonardo Barrios MD Work Phone: [phone]06-18-2025 10:12-0400 Respiratory rate16 /Leonardo Barrios MD Work Phone: [phone]06-18-2025 10:12-0400 SaO2% (BldA) [Mass fraction]98 %Fatoumata Barrios MD Work Phone: [phone]06-18-2025 10:12-0400 Systolic blood hdcszywc131 mm[Hg]Fatoumata Barrios MD Work Phone: [phone]06-13-2025 13:46-0400 Body .8 cmFatoumata Barrios MD Work Phone: [phone]06-13-2025 13:46-0400 Body mass index (BMI) [Ratio]37 kg/t5ApsgdcFatoumata Barrios MD Work Phone: [phone]06-13-2025 13:46-0400 Body stauwj481.02 kgFatoumata Barrios MD Work Phone: [phone]06-13-2025 13:46-0400 Diastolic blood mm[Hg]Fatoumata Barrios MD Work Phone: [facility]06-13-2025 13:46-0400 Heart rate85 /Leonardo Barrios MD Work Phone: [facility]06-13-2025 13:46-0400 Systolic blood wnfmayrr334 mm[Hg]Fatoumata Barrios MD Work Phone: [facility]03-26-2025 13:57-0400 Body .8 cmFredric Itzkowitz DO Work Phone: [facility] HospitalUxlmjvrptv16-52-4686 13:57-0400Body mass index (BMI) [Ratio]36.59 kg/x5Aflpfqg Itzkowitz DO Work Phone: [facility] HospitalLvutqyjfal21-08-8047 13:57-0400Body jfguay787.67 kgFredric Itzkowitz DO Work Phone: [facility] HospitalDwvmuayouf25-25-4430 10:00-0500Body uabrcd046.8 cmWay[facility]02-27-2025 10:00-0500Body mass index (BMI) [Ratio]36.1 kg/m5VdrjmpylaWayne Healthcare Main Campus02-27-2025 10:00-0500Body minzpo635.3 kgWay[facility] Healthcare [facility] Campus02-27-2025 10:00-0500Diastolic blood rdklwmna48 mm[Hg][facility]02-27-2025 10:00-0500 Heart rate65 /minWayne Healthcare Main Campus02-27-2025 10:00-0500Systolic blood sqclicva161 mm[Hg][facility]12-13-2024 13:08-0500 Body mass index (BMI) [Ratio]36.73 kg/l5EdbnhrsSuze KINNEY Work Phone: [facility] HospitalMajpfzjmtc59-41-6438 13:08-0500Body xovpki992.12 kgSuze KINNEY Work Phone: [facility] HospitalCtztwptvaz68-61-6635 13:08-0500Diastolic blood mqogtweq76 mm[Hg]Suze Somers CN Work Phone: [facility] HospitalTmnqmecklf39-21-9783 13:08-0500Systolic blood eglyydzy283 mm[Hg]Suze Somers CNM Work Phone: [facility] HospitalDcybkzfpqu18-16-9663 11:00-0500Body fbxqiu235.8 cmWay[facility] Campus12-06-2024 11:00-0500Body mass index (BMI) [Ratio]37.2 kg/m1WhfqxhjidWayne Healthcare Main Campus12-06-2024 11:00-0500Body anagmyybueh66.3 [degF][facility]12-06-2024 11:00-0500Body kyggei724.59 kgWayne Healthcare [facility] Campus12-06-2024 11:00-0500Diastolic blood womdkskc88 mm[Hg][facility]12-06-2024 11:00-0500 Heart rate95 /[facility]12-06-2024 11:00-6689WvJ3% (BldA) [Mass fraction]96 %[facility]12-06-2024 11:00-0500 Systolic blood psgchyyj021 mm[Hg][facility]12-02-2024 10:16-0500Body ffbuvo917.8 cmWay[facility] Campus12-02-2024 10:16-0500Body mass index (BMI) [Ratio]36.4 kg/w3FzqieymtvWayne Healthcare Main Campus12-02-2024 10:16-0500Body utsleifqann82.2 [degF][facility]12-02-2024 10:16-0500Body vkatbz906.21 kgWayne Healthcare [facility] Campus12-02-2024 10:16-0500Diastolic blood mphungtq23 mm[Hg][facility]12-02-2024 10:16-0500Heart hpkp249 /[facility]12-02-2024 10:16-0500Respiratory rate16 /[facility]12-02-2024 10:16-8388QwM4% (BldA) [Mass fraction]99 %[place] [address]-02-2024 10:16-0500Systolic blood rclqohqm218 mm[Hg][facility]10-01-2024 13:42-0400Body wzvmvu234.8 cmLisbeth Barney MD Work Phone: [facility] HospitalTpesiaorga50-54-0997 13:42-0400Body mass index (BMI) [Ratio]37.31 kg/k8UinzcpLisbeth Barney MD Work Phone: [facility] HospitalNckqlannxc89-38-4415 13:42-0400Body .94 kgLisbeth Barney MD Work Phone: [phone] HospitalLesbmzqklm80-83-2676 13:42-0400Diastolic blood bwbbblzu90 mm[Hg]Lisbeth Barney MD Work Phone: [facility] HospitalFtxreikftl62-06-8351 13:42-0400Systolic blood deqnnxcz286 mm[Hg]Lisbeth Barney MD Work Phone: [facility] HospitalYgeuamchpm58-95-2761 08:41-0400Body ryvwji119.8 cmWayne [facility] Campus09-23-2024 08:41-0400Body mass index (BMI) [Ratio]37.3 kg/c1TiyzrstuuWayne Healthcare Main Campus09-23-2024 08:41-0400Body akwmme358.93 [facility]09-23-2024 08:41-0400Diastolic blood byyajiqe60 mm[Hg][facility]09-23-2024 08:41-0400 Heart rate70 /minWayne Healthcare Main Campus09-23-2024 08:41-0400Systolic blood lqsnxyks916 mm[Hg][facility]09-10-2024 13:41-0400 Body lwaldo314.8 cmWayne Healthcare [facility] Campus09-10-2024 13:41-0400Body mass index (BMI) [Ratio]37.3 kg/g1YutofiicaWayne Healthcare Main Campus09-10-2024 13:41-0400Body jiwdnldegsu78.5 [degF][facility]09-10-2024 13:41-0400Body kckyrp325.93 [facility]09-10-2024 13:41-0400Diastolic blood oqjvljur72 mm[Hg][facility] 11-10-2023 13:41-0400Heart rate81 /[facility] 11-10-2023 13:41-0400Systolic blood laexvtdv054 mm[Hg][facility]04-30-2024 11:16-0400Body ctspad849.8 cmWayne Healthcare [facility] Campus 06-30-2023 11:16-0400Body mass index (BMI) [Ratio]37.1 kg/q1FvymattnvWayne Healthcare Main Campus04-30-2024 11:16-0400Body oqajebgfzcs82.9 [degF][facility]04-30-2024 11:16-0400Body zaxavp109.53 kgWayne Healthcare Main Campus04-30-2024 11:16-0400Diastolic blood ztyemnko29 mm[Hg][facility]04-30-2024 11:16-0400Heart rate71 /[facility]04-30-2024 11:16-0400Systolic blood pixavpsq616 mm[Hg][facility]11-13-2023 10:45-0500Body vpteck466.8 cmFatoumata Barrios Other [facility] Other 11-13-2023 10:45-0500Body mass index (BMI) [Ratio] 37.16 kg/o8SeatikFatoumata Barrios Other [facility] Other 11-13-2023 10:45-0500Body vathqd657.48 kgCarolechanteldionicio Barrios Other [facility] Other 11-13-2023 10:45-0500Diastolic blood upxfhmrn95 mm[Hg] Fatoumata Barrios Other [facility] Other 11-13-2023 10:45-0500Systolic blood fjbqsmfi308 mm[Hg] Fatoumata Barrios Other [employer] Other 11-13-2023 09:45-0500Body yrahfu128.8 cmFatoumata Denis Other [employer] Other 11-13-2023 09:45-0500Body mass index (BMI) [Ratio] 37.16 kg/p6Vdknan Denis Other [employer] Other 11-13-2023 09:45-0500Body dukfcr444.48 kgFatoumata Denis Other [employer] Other 11-13-2023 09:45-0500Diastolic blood inpyfgxp86 mm[Hg] Fatoumata Barrios Other [employer] Other 11-13-2023 09:45-0500Systolic blood ztofrqrt549 mm[Hg] Fatoumata Barrios Other [employer] Other 04-07-2023 12:15-0400Body .8 cmUnadionicio Barrios Other [employer] Other 04-07-2023 12:15-0400Body mass index (BMI) [Ratio] 36.44 kg/z0UcugijFatoumata Barrios Other [employer] Other 04-07-2023 12:15-0400Body bnqzso353.21 kgCarolechanteldionicio Barrios Other [employer] Other 04-07-2023 12:15-0400Diastolic blood dkbkiaaw54 mm[Hg] Fatoumata Barriso Other [employer] Other 04-07-2023 12:15-8862IgV9% (BldA) [Mass fraction]99 % Fatoumata Barrios Other [facility] Other 04-07-2023 12:15-0400Systolic blood vkislcnt186 mm[Hg] Fatoumata Barrios Other [facility] Other 04-25-2022 16:00-0400Body kshanr737.8 cmPameldionicio Lawler Other [employer] Other 04-25-2022 16:00-0400Body mass index (BMI) [Ratio] 35.87 kg/n2Tuebsajose elias Lawler Other [employer] Other 04-25-2022 16:00-0400Body nldlhhbokoq40.4 [degF]Daria De La Torremond Other [employer] Other 04-25-2022 16:00-0400Body haaxtc503.4 kgPajose elias Lawler Other [employer] Other 04-25-2022 16:00-0400Respiratory rate18 /minDaria Lawler Other [employer] Other 04-25-2022 16:00-1228VzM8% (BldA) [Mass fraction]97 % Daria Lawler Other [employer] Other Encounters Encounter DateEncounter TypeCare ProviderFacilityStart: 01-10-2025 End: 92-18-2743rpupzdojwnJacwzf E Braun MD Work Phone: [phone]-DXOHTmunz: 01-10-2025 End: 73-47-4505Gtrxxpi encounter procedureAlexia Adkins [facility] Work Phone: Start: 01-02-2025 End: 01-71-4408bfbfordlumUckhpm E Braun MD Work Phone: [facility] 01-02-2025 End: 51-90-9571Xxtaslg encounter procedureFatoumata Barrios MD-[address] [facility] Work Phone: Start: 80-31-5924Qzw-patient / Non-visitFatoumata Barrios MD-[facility] Work Phone: Start: 11-21-2024 End: 27-28-1528naltclevntHvkazv E Braun MD Work Phone: [facility] Work Phone: Start: 11-21-2024 End: 55-77-7029Yvehtxi encounter procedureChristi Priest [facility] Work Phone: Start: 11-15-2024 End: 03-41-9862wwyqphkmitLxhtyj E Braun MD Work Phone: [facility] Work Phone: Start: 11-15-2024 End: 81-67-9878Yyxbqkr encounter procedureDelilyyaima Adrián Adkins [facility] Work Phone: Start: 09-22-2024 End: 15-37-6927Anztcoz encounter procedureGreg Wheat MD-[facility] Work Phone: Start: 09-22-2024 End: 92-62-3812jlgsglqrnuBuoafu E Braun MD Work Phone: [facility] Work Phone: Start: 08-18-2024 End: 74-23-4494Wycmkljessica Mcmahon MD Work Phone: [facility] ENDOCRINOLOGYStart: 08-18-2024 End: 43-31-3841Qvkmiujennifer Mcmahon MD Work Phone: [facility] ENDOCRINOLOGYStart: 08-18-2024 End: 58-66-9224irzgqejffxJIAKP F SABBAGHNot AvailableStart: 08-18-2024 End: 77-82-5672Srrcyp outpatient visit 25 minutesJemal Mcmahon MD Work Phone: [facility] ENDOCRINOLOGYComment on above:Postoperative hypothyroidism (Primary Dx); Vitamin D deficiency; Encounter for dietary consultation; Class 2 obesity due to excess calories without serious comorbidity with body mass index (BMI) of 37.0 to 37.9 in adultStart: 08-17-2024 End: 48-17-4570Hfhbslc encounter procedureKim Harding APRLifecare [facility] Work Phone: Start: 08-12-2024 End: 63-33-9837Htvszxi encounter procedureFatoumata Barrios MD-[facility] Work Phone: Start: 05-25-2024 End: 94-88-9126Hrrcgj outpatient new 45 minutesFredric H Itzkowitz DO Work Phone: [facility] GENSComment on above:MastodyniaStart: 05-25-2024 End: 90-03-1617ruthvbjzdzZYHIWJG H ITZKOWITZNot AvailableStart: 04-28-2024 End: 97-66-2523udyfggiuloAcgwrvudhFulton County Health Center Work Phone: Start: 04-28-2024 End: 26-22-0386Slweyac encounter procedureUn[facility] Work Phone: Start: 03-14-2024 End: 27-87-1757femiihweypVQHESNV L FLORONot AvailableStart: 02-12-2024 End: 78-78-2953mwnwcgzookBHZZVEY L FLORONot AvailableStart: 02-12-2024 End: 31-49-6552Mzrtbzxiugyjh examination normalValerie L Mary Aliceo CNM Work Phone: noms HealthcareStart: 02-12-2024 End: 18-29-7502Ilqtygjq preventive med est patient 40-64yrsValeridez KINNEYM Work Phone: [facility] FNR OBComment on above:Normal gynecologic examination; Breast cancer screening by mammogramStart: 02-05-2024 End: 61-45-9065Mgvbzhy encounter procedureUn[facility] GroupAv[facility] Work Phone: Start: 02-01-2024 End: 92-24-5829Tkyxvkr encounter procedureUn[facility] Lauro Work Phone: Start: 12-01-2023 End: 55-29-3822Mdjjlf flowsheetLisbeth Barney MD Work Phone: [facility] CI ENTStart: 12-01-2023 End: 11-07-9349Wzerkr Kaye Barney MD Work Phone: [facility] CI ENTStart: 12-01-2023 End: 09-12-2503Dqeaes outpatient visit 15 minutesLisbeth Barney MD Work Phone: [facility] CI ENTComment on above:Acute suppurative otitis media of left ear without spontaneous rupture of tympanic membrane, recurrence not specified (Primary Dx); Chronic mastoiditis of left side; ETD (Eustachian tube dysfunction), leftStart: 12-01-2023 End: 99-63-3051srjqszzbguNHTKHJ H TIMMISNot AvailableStart: 11-23-2023 End: 69-98-6034kundcsikciCeomtmtkwFulton County Health Center Work Phone: Start: 11-23-2023 End: 44-58-1724Xpkyqpn encounter procedureUn[facility] Physician [facility] Work Phone: Start: 11-10-2023 End: 02-31-7194hbkvjlnehsNndbukscmProMedica [facility] Work Phone: Start: 11-10-2023 End: 48-24-9699Yubtsjm encounter procedureUn[facility] Work Phone: start: 06-30-2023 End: 99-95-9025qezihswcweUxawgutjbFulton County Health Center Work Phone: Start: 06-30-2023 End: 81-65-2489Qjtkvhv encounter procedureFircolumbuss Physician [facility] Work Phone: Start: 04-22-2023 End: 98-01-4180kmhwmomxoyXqmikalezFulton County Health Center Work Phone: Start: 04-22-2023 End: 00-62-4701Crdbmtf encounter procedureUn[facility] Work Phone: Start: 02-16-2023(Televisit) TelevisitMarcia [facility] Centertart: 02-16-2023 End: 32-89-8839xyrsequrasRwhfob Bariros Other noWITOI Other Start: 37-38-1095Eqekqpm encounter procedureUn[facility]-Start: 02-13-2023 End: 18-23-0764ymdixiuhrwGfsmvs Barrios Other [employer] Other Start: 95-48-6039Hwhstfxtx encounterMarcia [facility] Centertart: 01-15-2023 End: 17-89-4774ngepdjvcwrShghpe Barrios Other [employer] Other Start: 33-38-5283Lntlrzrro encounterMarcia [facility] Centertart: 01-12-2023 End: 42-04-9985ijpdkfqcwiUhusmd Barrios Other [employer] Other Start: 53-44-8167Vvisxp outpatient visit 15 minutes Fatoumata [facility] Centertart: 12-08-2022 End: 09-29-5347tilhjnebkiJhrqth Bailey Other [employer] Other Start: 48-02-0733Ofsytxagk encounterLafranky MuñizshakeelVALLEYWISE HEALTH MEDICAL [facility]ENTER Family Medicine ClydeStart: 12-06-2022 End: 99-07-6557oikfemwyukDLJG Lauren Bailey Work Phone: [facility] Work Phone: Start: 12-06-2022 End: 93-04-9864Cntbklxp ReferredAPRMo Hobson Work Phone: [facility] Work Phone: Start: 07-03-2022 End: 67-97-2786rahxfcixrpUsuwus Barrios Other [employer] Other Start: 74-29-5786Wakdgkciu encounterMarcia DenisY[facility] Medical ClinicStart: 06-18-2022 End: 62-89-2124tlwrabmplqLtlzlt Barrios Other [employer] Other Start: 87-03-1768Zzstdundl encounterMarcia BraunYuma [facility] Center Medical ClinicStart: 06-09-2022 End: 79-30-9942digmgrrlvaBispuy Barrios Other [employer] Other Start: 17-72-5713Fxndeownk encounterMarcia BraunYuma [facility] Center Medical ClinicStart: 06-06-2022 End: 74-00-1104oojjqyftusNfuvpz Barrios Other [employer] Other Start: 33-71-0013Ebhxso outpatient visit 15 minutes Fatoumata DenisYuma Regional Medical Center Medical ClinicStart: 79-96-3399Rrnkn health examination Stephanie Jazlyn Other [employer] Other Start: 99-14-6313Wnfgxkmybclka examination normal Stephanie Muñizley Other no[facility] Other Start: 02-17-2022 End: 79-10-7403kwquhqmynmHY EVAN BENITEZFacility:Y5Nzdpx: 01-27-2022 End: 56-43-8941pyyosacozyII EVAN MAYBERRYMajoFacility:J9Cxwbl: 01-10-2022 End: 27-39-4962swhetygntaNJ Fatoumata Barrios Work Phone: [facility] Work Phone: Start: 01-10-2022 End: 38-92-4884Iumrcgp encounter procedureMD Fatoumata Barrios Work Phone: [facility]-XRay Strub RdStart: 01-07-2022 End: 14-17-7522zpbhqlvmzgBM FATOUMATA BARRIOSFacility:V1Tmozn: 07-03-2021 End: 07-80-6962zcdicrxpbsYNUYW MARYKRISFacility:X5Tmzjo: 06-24-2021 End: 89-16-1115xsdfbqmyxmXlesdu Dymond Other [employer] Other Start: 67-91-8946Rhhwmm outpatient new 20 minutes Daria LawlerFPG Urgent Care ClydeStart: 88-65-5641Cau-procedure evaluation Delbert Hobson Other noWITOI Other Start: 05-11-2018 End: 17-40-1380Uplxoam encounter procedureDEFAULT PHYSICIANFacility:[facility] Procedures DateProcedureProcedure DetailPerforming ClinicianStart: 34-72-4584Mgypzytbwss Manny Rodriguez DO Work Phone: Start: 86-99-7155QodrsfxdzkaWmftlk Timmis MD Work Phone: Start: 19-66-1103Epmpdnbxbp radiography of abdomenMD Fatoumata Barrios Work Phone: Start: 03-35-4789Yuzzemiwnhrmo care educationStephanie Hobson Other Start: 56-45-3871Uekrfdjzo visitStephanie Muñizley Other HysterectomyStephanie Muñizley Other Screening for malignant neoplasm of breastStephanie Muñizley Other Plan of Treatment DateCare ActivityDetailAuthorStart: 08-17-2025 End: 84-10-6047Utwczkx encounter epzlpfcte92/18/2026 11:00 AM EDT Office Visit [facility] [address] [place] [id number] Jemal Mcmahon MD [address] [place] [address] [facility] ENDOCRINOLOGYStart: 16-09-1876Xhvdobbtg for malignant neoplasm of breastMammogramNOCT HealthcareStart: 02-16-2025 End: 98-08-4792Ajxkyns encounter bkjtpsvei61/18/2025 1:00 PM EST Office Visit [facility] [address] [place] [address] Suze Somers, CNM [address] [place] [address] [facility] FNR OBStart: 00-75-9089Xmmyxkzbp vaccinationInfluenza Vaccine (Season Ended)[facility] HealthcareStart: 60-06-8992Odpyokd referralPike Community Hospital Work Phone: Start: 17-94-7028UA Lower extremity vein - bilateral [facility] Hospitaltart: 08-18-2024 End: 983159-mbkasiuabbjali D3 [Mass/volume] in Serum or PlasmaVitamin D 25 hydroxy Lab Routine Vitamin D deficiency Expected: 08/18/2024 (Approximate), Expires: 08/18/2025[facility] HealthcareComment on above:Expected: 08/18/2024 (Approximate), Expires: 08/18/2025Start: 08-18-2024 End: 70-10-2103Mqdjulwhaty [Units/volume] in Serum or PlasmaTSH Lab Routine Postoperative hypothyroidism Expected: 08/18/2024 (Approximate), Expires: 08/18/2025[facility] HealthcareComment on above:Expected: 08/18/2024 (Approximate), Expires: 08/18/2025Start: 08-18-2024 End: 04-67-0071Sqicieffb (T4) free [Mass/volume] in Serum or PlasmaT4, free Lab Routine Postoperative hypothyroidism Expected: 08/18/2024 (Approximate), Expires: 08/18/2025[facility] HealthcareComment on above:Expected: 08/18/2024 (Approximate), Expires: 08/18/2025Start: 08-18-2024 End: 1980Mkydzrztzrtjosek (T3) Free [Mass/volume] in Serum or PlasmaT3, free Lab Routine Postoperative hypothyroidism Expected: 08/18/2024 (Approximate), Expires: 08/18/2025[facility] Healthcare Work Phone: Comment on above:Expected: 08/18/2024 (Approximate), Expires: 08/18/2025Start: 08-18-2024 End: 44-25-5813Pouuidy encounter rraceqzxr57/19/2025 11:00 AM EDT Office Visit [facility] [address] [place] [phone] Jemal Mcmahon MD [address] [place] [address] [facility]OCRINOLOGYStart: 69-75-1968Pcnklap referral [facility] Work Phone: Start: 03-14-2024 End: 79-18-9099Snyitvemkdjc / ancillary services yuffwlpthy22/13/2025 3:30 PM EST Ancillary Procedure [facility] [address] [place] [address] [facility] IMAGINGStart: 94-38-2162Pexyvydck for malignant neoplasm of breastMammogramNOMS HealthcareStart: 02-12-2024 End: 60-21-3461BKI Breast - bilateral screeningBilateral screening mammogram with tomosynthesis Imaging Routine Breast cancer screening by mammogram Expected: 02/12/2024, Expires: 04/14/2025[facility] Work Phone: Comment on above:Expected: 02/12/2024, Expires: 04/14/2025Start: 02-04-2024 End: 56-49-3219Hrembll encounter eqfxupwug94/05/2024 11:00 AM EST Office Visit [facility] [address] [place] [phone] Suze Somers, CNM [address] [place], [place] [id number] [facility] FNR OBStart: 12-01-2023 End: 59-77-5733Osjspne encounter gntjlmuda83/01/2024 1:40 PM EDT Office Visit [facility] [address] [facility] [address] [place] [phone] Lisbeth Barney MD [address] [facility] [address] [place] [address] ArrivedNOMS CI ENTComment on above:ArrivedStart: 10-99-0471Cwggjuq referralK[facility] Work Phone: Start: 02-26-3189Bgqyrwpib vaccinationInfluenza Vaccine (#1)[facility] HealthcareStart: 56-45-3332Hvlxyics identified in Urine by CultureDayton Children's Hospitaltart: 92-10-3139Inpnrnsbb for malignant neoplasm of cervixNOMS HealthcareStart: 70-07-5762Vrbziwezo for malignant neoplasm of cervixPap SmearNOMS HealthcarePatient referralK[facility]tering Health [facility] Work Phone: [place] Lower extremity vein - rightWayne Healthcare Main CampusXR Wrist - left GE 3 ViewsWayne Healthcare Main Campus Immunizations Immunization DateImmunizationNotesCare CgkdfwbmPuhawqel47-24-3355wgqccfrjj virus vaccine, unspecified formulationLisbeth Barney MD Work Phone: [facility] HospitalGqywjysbue39-49-1412cgdcgulrg virus vaccine, split virus (incl. purified surface antigen)Stephanie Hobson Other [place] [employer] Other 1797254-78-9364soxcubmyr virus vaccine, unspecified formulationWayne Healthcare Main Campus10-16-2014tetanus and diphtheria toxoids, adsorbed, preservative free, for adult use (5 Lf of tetanus toxoid and 2 Lf of diphtheria toxoid)Stephanie Hobson Other [facility] Payers DatePayer CategoryPayerPolicy [id number] Hospital Member Subscriber Plan / Payer (Effective 2022-Present) Name: Sahara Gipson Relation to Subscriber: Spouse Name: JULIA GIPSON Date of : 1979 (Home) Address: [address] [place] [id number] Payer ID: Not on file Type: Not on file Address: [facility] [address] [place] [id number] .1.611276.3.579.2.35876-70-9051Utxnctb [id number] 04.17.830.1.967343.3.57[id number] 04.17.830.1.065519.3.579.[id number] 2.0.1.746508.3.579.2.[id number] 2.0.1.623934.3.579.2.74036-01-8292Kmkgshz20850045 2..1.026872.3.579.[id number] 2..1.035712.3.579.2.[id number] 2..1.416601.3.579.2.101320-11-0415Oxjuhaw0990031 2..1.362325.3.579.2.963233-96-7818Stneilf7198654 2..1.610465.3.579.2.612887-83-3090SoeuLovelace Regional Hospital, RoswellEWM322M53882 2..[id number] Private Health [id number]-dfe Self [id number]-[id number] [id number] [id number]-6g35-64v0-464r0v2vzl19 Social History DateTypeDetailFacilityStart: 02-02-2023 End: 86-92-3032Tdc Assigned At [facility]Nosaint [facility] durchb[facility]er.at Other Start: 86-94-0414Bja Assigned At [facility] Centertart: 02-16-2023 End: 33-36-9076Npghwlm smoking status NHISNever smoked tobacco (finding) [facility] Hospitaltart: 43-43-6767Vckrjlw use and exposure Smokeless tobacco non-userNOMS HealthcareStart: 02-02-2023 End: 92-03-6756Zawopxazq beverage intakeEx-drinker (finding)[facility] Start: 02-02-2023 End: 25-16-2509Zubllik of Social functionNOMS HealthcareStart: 65-44-5045Eifxhkx CommentOccasional alcohol use. Caffeine: 1-2 cups per dayNOMS HealthcareStart: 41-71-1885Bpmnav identityIdentifies as female gender (finding)[facility] Healthcare Start: 59-95-9398Lhmwmf orientationHeterosexual (finding)[facility] HealthcareStart: 76-94-1866HdyIofhpw (finding)[facility] Clinical Notes 06-14-2021 to 11-15-2024 Note Date & DxhuIznoVmyibqtv65-63-8241 Evaluation note* Diagnosis Onset Date Resolution Status Admit Date Dietary counseling and surveillance acuteSept2024 9:25amHx of atrial fibrillation without current medicationacuteSept2024 9:25amKnee pain, bilateralacuteSept2024 9:25amObesityacuteSept2024 9:25amObesity (BMI 35.0-39.9 without comorbidity)acuteSept2024 9:25amSevere needle phobiaacute November 15, 2024 9:25amVitamin D deficiency, unspecifiedacuteSept2024 9:25amLeft lateral epicondylitisacuteNov2024 2:49pmMorbid (severe) obesity due to excess caloriesacuteNov2024 2:49pmUnspecified asthma, uncomplicatedacuteNov2024 2:49pmDietary counseling and surveillanceacuteNov2024 10:33amHx of atrial fibrillation without current medicationacuteNov2024 10:33amKnee pain, bilateralacute January 10, 2025 10:33amObesityacuteNov2024 10:33amObesity (BMI 35.0-39.9 without comorbidity)acuteNov2024 10:33amSevere needle phobiaacuteNov2024 10:33amVitamin D deficiency, unspecifiedacute January 10, 2025 10:33am [facility] Work Phone: 1(837) 232-324609-16-2025 Evaluation note* Diagnosis Onset Date Resolution Status Admit Date Dietary counseling and surveillance acuteSeptember 2024 9:25amHx of atrial fibrillation without current medicationacuteSept2024 9:25amKnee pain, bilateralacuteSept2024 9:25amObesityacuteSept2024 9:25amObesity (BMI 35.0-39.9 without comorbidity)acuteSept2024 9:25amSevere needle phobiaacute November 15, 2024 9:25amVitamin D deficiency, unspecifiedacuteSept2024 9:25amLeft lateral epicondylitisacuteNov2024 2:49pm [facility] Work Phone: 1(190) 905-973607-24-2025 Evaluation note* Diagnosis Onset Date Resolution Status Admit Date Right leg swelling acuteJuly 2024 7:58amDietary counseling and surveillanceacuteSept2024 9:25amHx of atrial fibrillation without current medicationacute November 15, 2024 9:25amKnee pain, bilateralacuteSept2024 9:25am ObesityacuteSept2024 9:25amObesity (BMI 35.0-39.9 without comorbidity)acuteSept2024 9:25amSevere needle phobiaacuteSept2024 9:25amVitamin D deficiency, unspecifiedacuteSept2024 9:25am [facility] Work Phone: 1(855) 984-403406-19-2025 History of Present illness Narrative* Jemal Mcmahon MD - 08/18/2024 11:30 AM EDT Sahara Gipson is a 43 y.o. female No ref. provider found presents with chief complaint of Thyroid Problem HPI: Interim history: 07/2024 Follow-up visit 08/18/2024 for hypothyroidism. She is on levothyroxine 125. lab on 07/2024 TSH 0.4, FT4 1.5 (0.8-1.8), free T3 3.1(2.3-4.2), ON 50,000 units twice a month in the summer, and once a week in the winter. Interim history: 08/2023 Follow-up visit 08/20/2023 for hypothyroidism. She is on levothyroxine 125. lab on 08/2023 TSH 0.11,FT4 1.6 (0.8-1.8), free T3 3.2(2.3-4.2), vitamin D 60. ON 50,000 units twice a month. Interim history: 06/2022 Follow-up visit 07/14/2022 for hypothyroidism. She is on levothyroxine 125. lab on 06/2022 TSH 0.4, T4 10.8 (5-11), free T3 3.4(2.3-4.2), vitamin D 54. ON 50,000 units once weekly Interim history: 06/2021 Follow-up visit 07/10/2021 for hypothyroidism. She is on levothyroxine 125, off Cytomel 5. TSH 0.27,free T4 1.34 (0.78-1.46), free T3 2.59(2.18-3.98), vitamin D 32. ON 50,000 units once weekly Interim history: 06/2020 Follow-up visit 07/24/2020 for hypothyroidism. She is on levothyroxine 125, Cytomel 5. Her weight is 248. TSH 0.053, free T4 1.4 (0.8-1.8), free T3 3.34(2.3-4.3), vitamin D 35. ON 50,000 units once weekly Interim history: 07/2019 Follow-up visit 07/20/2019 for hypothyroidism. She is on levothyroxine 125, Cytomel 5. Her weight is244. We saw her today with telemedicine through [employer]. Labs done. TSH 0.33, free T4 1.5 (0.8-1.6), free T3 3.3 (2.3-4.3), vitamin D 34. She is just still doing once a week. Interim History: 12/18 Followup visit on 12/08/18 for hypothyroidism post ablation. TSH 0.725, free T4 1.23 (0.78-2.19), free T3 3.29 (2.77-5.7), vitamin D 20. She is on levothyroxine 125 and Cytomel 5. She has a lot of symptoms, is not feeling well. HPI: 08/18 HPI: New patient to this office. Last time seen by me in 10/15 so still considered as a follow-up. Labs done in 05/18. TSH 1.61, free T4 1.32 (0.78- 2.19). Back in 12/16, her TSH was 0.07, free T4 1.4, saw her primary doctor, Dr. Fatoumata Barrios, who decreased her levothyroxine to 112 mcg daily and shefeels off since that time, tired, fatigued, weakness. I told her she does not have a major change in weight since I saw her back in 2015. At that time her weight was 232 and now it is 236. She thinksshe gained too much weight. She has history of radioactive treatment due to Graves disease back on 06/14/14 with 14.2 mCi. She is afraid of blood work too much. SUBJECTIVE: MEDICATIONS: Current Outpatient Medications Medication Instructions albuterol HFA 90 mcg/act inhaler cetirizine (ZYRTEC) 5 mg ergocalciferol (VITAMIN D2) 1.25 mg, Oral, Every 14 days fluticasone (Flonase) 50 MCG/ACT nasal spray 1 spray, Daily levothyroxine (SYNTHROID, LEVOXYL) 125 mcg, Oral, Daily before breakfast ALLERGIES: Allergies Allergen Reactions Cephalosporins Itching Other Reaction(s): CEPHALOSPORINS, Unknown Trimethoprim Other Reaction(s): Dizziness, itching Cephalexin Hives and Rash Sulfa Antibiotics Rash Sulfamethoxazole-Trimethoprim Itching and Rash Past Medical History: Diagnosis Date A-fib (HCC) Acute asthmatic bronchitis (HCC) Ankle instability, right Atrial fibrillation, unspecified type (HCC) BMI 36.0-36.9,adult Breast cancer screening by mammogram Cavovarus deformity of foot, acquired, right Contracture of ankle Environmental and seasonal allergies Equinus contracture of right ankle ETD (Eustachian tube dysfunction), left Family history of breast cancer in mother GERD without esophagitis Graves disease Hordeolum externum of left lower eyelid shelter (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) use of 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 Mild persistent asthma, uncomplicated (HCC) Other seborrheic keratosis Pain in joint of right ankle Patient's intentional underdosing of medication regimen due to financial hardship Peroneal tendinitis, right Postprocedural hypothyroidism Thyrotoxicosis with diffuse goiter without thyrotoxic crisis or storm Unspecified asthma, uncomplicated (HCC) Vitamin D deficiency Past Surgical History: Procedure Laterality Date COLONOSCOPY 2018 HEEL SPUR EXCISION 2000 heel surgery, r/o bone spur LAPAROSCOPIC HYSTERECTOMY 2017 PLANTAR FASCIA RELEASE WISDOM TOOTH EXTRACTION 1999 wisdom teeth REVIEW OF SYMPTOMS: 14 POINT OF SYSTEM REVIEWED AND NEGATIVE OBJECTIVE: No results found for: TSH Lab Results Component Value Date T4FREE 1.4 02/02/2023 Visit Vitals Pulse 81 Resp 16 Ht 5' 9.5 Wt 258 lb SpO2 96% BMI 37.55 kg/m OB Status Hysterectomy Smoking Status Never BSA 2.4 m Physical Exam Constitutional: Appearance: Normal appearance. She is normal weight. HENT: Head: Normocephalic and atraumatic. Right Ear: External ear normal. Nose: Nose normal. Mouth/Throat: Pharynx: Oropharynx is clear. Eyes: Extraocular Movements: Extraocular movements intact. Pupils: Pupils are equal, round, and reactive to light. Cardiovascular: Rate and Rhythm: Normal rate and regular rhythm. Pulmonary: Effort: Pulmonary effort is normal. Abdominal: General: Abdomen is flat. Palpations: Abdomen is soft. Musculoskeletal: General: Normal range of motion. Skin: General: Skin is warm. Neurological: General: No focal deficit present. Mental Status: She is alert. Psychiatric: Mood and Affect: Mood normal. Behavior: Behavior normal. ASSESSMENT AND PLAN: Assessment/Plan Diagnoses and all orders for this visit: Postoperative hypothyroidism - levothyroxine (Synthroid, Levoxyl) 125 MCG tablet; Take 1 tablet (125 mcg) by mouth in the morning. Take before meals. - T3, free; Future - T4, free; Future - TSH; Future We will continue with levothyroxine 125 mcg daily Vitamin D deficiency - ergocalciferol (Vitamin D2) 1.25 MG (60962 UT) capsule; Take 1 capsule (1.25 mg) by mouth every 14 (fourteen) days - Vitamin D 25 hydroxy; Future We will continue with once every other week in the summertime and once weekly in the wintertime Encounter for dietary consultation Class 2 obesity due to excess calories without serious comorbidity with body mass index (BMI) of 37.0 to 37.9 in adult Diet and exercise reviewed with the patient Follow up in about 1 year (around 08/18/2025). documented in this encounterWright Memorial HospitalYczxkhgkvr89-26-9370 Evaluation note* Diagnosis Onset Date Resolution Status Admit Date Right leg swelling acuteJune 2024 9:46amRight leg swellingacuteJuly 2024 7:58am [facility] Work Phone: 1(554) 266-687006-13-2025 Evaluation note* Diagnosis Onset Date Resolution Status Admit Date Right leg swelling acuteJune 2024 1:41pmRight leg swellingacuteJune 2024 9:46am [facility] Work Phone: 1(867) 499-431606-13-2025 Evaluation note* Diagnosis Onset Date Resolution Status Admit Date Right leg swelling acuteJune 2024 1:41pmRight leg swellingacuteJune 2024 9:46amRight leg swellingacuteJuly 2024 7:58am [facility] Work Phone: 1(226) 758-538303-26-2025 History of Present illness Narrative* Manny Rodriguez, - 05/25/2024 2:00 PM EDT Images from the original note were not included. Sahara Gipson 1980 Sahara Gipson is a 43 y.o. female presents with chief complaint of Breast consult for mastodynia HPI: HPI Sahara states she has a history of breast cyst. She had her yearly mamm's in March and developedleft breast pain that has woken her at night. She states the pain is intermittent, but has gotten alittle better recently. 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 HENT: Head: Normocephalic. Cardiovascular: Rate and Rhythm: Normal rate and regular rhythm. Pulmonary: Effort: Pulmonary effort is normal. Breath sounds: Normal breath sounds. Chest: Comments: Bilateral supraclavicular, infraclavicular, bicipital and axillary lymph nodes were foundto be normal. Each breast was examined in the sitting and supine position, there was no evidence ofmasses, dimpling or discharge in either breast Abdominal: [...] and contact me PRN documented in this encounterWright Memorial [id number] History of Present illness Narrative* Suze Somers CNM - 02/12/2024 1:00 PM EST YEARLY HPI: This is a established patient. 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 Mild persistent [...] MA, 02/12/2024 1:05 PM documented in this encounterWright Memorial [id number] Evaluation note* Diagnosis Onset Date Resolution Status Admit Date Knee pain, bilateral acuteDecember 2023 9:19amViral URI with coughacuteDecember 2023 9:19am BronchitisacuteDecember 2023 10:56amBreast pain, leftacuteFebruary 2024 9:58amLeft wrist painacuteFebruary 2024 9:58am [facility] Work Phone: [phone]) 828-261610-01-2024 History of Present illness Narrative* Lisbeth Barney MD - 12/01/2023 1:40 PM EDT [...] (CMS/HCC) Hordeolum externum of left lower eyelid shelter (current) use of 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 Mild persistent [...] time without further tx documented in this encounterWright Memorial [id number] Evaluation note* Encounter Date Diagnosis Assessment Notes Treatment Notes Treatment Clinical Notes Jan, Acute pharyngitis, unspecified e tiology (ICD-10 - J02.9) Finish antibiotics as prescribed. Rest, fluids, call if symptoms continue [employer] Other 11-13-2023 Evaluation note* Encounter Date Diagnosis Assessment Notes Treatment Notes Treatment Clinical Notes Dec, PAULINE (obstructive sleep apnea) (I CD-10 - G47.33) Order to [facility] sleep disorder center completed - loud snorking obesity, fatigue and gasping at night.Order and note faxed to their office. [employer] Other 11-13-2023 Evaluation note* Encounter Date Diagnosis Assessment Notes Treatment Notes Treatment Clinical Notes Dec, PAULINE (obstructive sleep apnea) (I CD-10 - G47.33) Order to [facility] sleep disorder center completed - Her signs and symptoms are: loud snoring, obesity, fatigue and gasping at night. Order and note faxed to their office. [employer] Other 04-15-2023 History general Narrative - Reported* Type Description Date Medical History graves disease Medical HistoryRAI 14.2 mCI 06/14Medical Historyhypothyroidism, post ablative Medical HistoryPain in right ankleMedical HistoryMild persistent allergic asthma without complicationMedical HistoryChronic GERDSurgical Historyoral surgery Surgical HistoryRT heel surgerySurgical HistoryHYSTERECTOMYSurgical HistoryLEFT OVARY REMOVEDHospitalization Historychild X's 2 [employer] Other 04-07-2023 Evaluation note* Encounter Date Diagnosis Assessment Notes Treatment Notes Treatment Clinical Notes May, Pain in right ankle and joints o f right foot (ICD-10 - M25.571) Pt agrees to ortho referral. [facility] office would be closest. Discussed home exercises and treatment for plantar fasciitis. May,Right upper quadrant abdominal pain (ICD-10 - R10.11)5 months of intermittent RUQ pain - KUB was normal (neg for stone) will pursue GB US. [employer] Other 04-25-2022 Evaluation note* Encounter Date Diagnosis Assessment Notes Treatment Notes Treatment Clinical Notes May, Acute sinusitis, rec urrence not specified, unspecified location (ICD-10 - J01.90) Drink plenty fluids, get plenty of rest. Continue your Z-Tera as prescribed. Use the Flonase inhaleras prescribed until symptoms improve. Follow-up with your family physician if no improvement in 2 to 3 days. [employer] Other 04-15-2022 History general Narrative - Reported* Type Description Date Medical History graves disease Medical HistoryRAI 14.2 mCI 06/14Medical Historyhypothyroidism, post ablative Surgical Historyoral surgerySurgical HistoryRT heel surgeryHospitalization Historychild X's 2 [employer] Other Evaluation noteNo assessment information available [facility] Work Phone: Evaluation noteNo InformationNort [email or web address] Other Evaluation note* Diagnosis Onset Date Resolution Status Sinusitis, acute maxillary acute [facility] Work Phone: Evaluation note* Diagnosis Onset Date Resolution Status Sinusitis, acute maxillary acuteChronic otitis media of left ear with effusionacute [facility] Work Phone: Evaluation note* Diagnosis Acute suppurative otitis media of left ear without spontaneous rupture of tympanic membrane, recurrence not specified- Primary Chronic mastoiditis of left side ETD (Eustachian tube dysfunction), left documented [facility] encounter [facility]* Diagnosis Normal gynecologic examination Breast cancer screening by mammogram documented in this encounter [facility]* Diagnosis Mastodynia documented in this encounter [facility]* Diagnosis 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 Vitamin D deficiency Encounter for dietary consultation Class 2 obesity due to excess calories without serious comorbidity with body mass index (BMI) of 37.0 to 37.9 in adult documented in this encounter [facility] HealthcareHistory general Narrative - Reported* Type Description Date Medical History graves disease Medical HistoryRAI 14.2 mCI 06/14Medical Historyhypothyroidism, post ablative Medical HistoryPain in right ankleMedical HistoryMild persistent allergic asthma without complicationMedical HistoryChronic GERDSurgical Historyoral surgery Surgical HistoryRT heel surgerySurgical HistoryHYSTERECTOMYSurgical HistoryLEFT OVARY REMOVEDHospitalization Historychild [employer] Other History general Narrative - Reported* Type Description Date Medical History graves disease Medical HistoryRAI 14.2 mCI 06/14Medical Historyhypothyroidism, post ablative Medical HistoryPain in right ankleMedical HistoryMild persistent allergic asthma without complicationMedical HistoryChronic GERDSurgical Historyoral surgery Surgical HistoryRT heel surgerySurgical HistoryHYSTERECTOMYSurgical HistoryLEFT OVARY REMOVEDSurgical HistoryRight plantar fasciitis [id number] Hospitalization Historychild [employer] Other Hospital Discharge instructionsAmbulatory Orders* Referral to ENT Time Frame: 11/23/23, Location: None [facility] Work Phone: Hospital Discharge instructionsAmbulatory Orders* Referral to General Surgery Time Frame: 04/28/24, Location: None [facility] Work Phone: Hospital Discharge instructionsAmbulatory Orders* Referral to Weight Management Location: None [facility] Work Phone: Reason for referral (narrative)No reason for referral information availableK[facility]tering Health [facility] Work Phone: Summary Purpose Family History Relationship Condition Age at Onset Recorded Date/T rolo brother Unknown fatherDiabetes mellitusUnknownHypertensionUnknownfamily memberDeceasedUnknownNot SpecifiedMalignant neoplasmUnknownsisterHistory of malignant neoplasm of cervix UnknownMalignant neoplasmUnknownDeceasedUnknown Relationship Condition Age at Onset Recorded Date/T rolo brother Unknown fatherDiabetes mellitusUnknownHypertensionUnknownfamily memberDeceasedUnknown motherMalignant neoplasmUnknownsisterHistory of malignant neoplasm of cervix UnknownMalignant neoplasmUnknownDeceasedUnknown Relationship Condition Age at Onset Recorded Date/T rolo brother Unknown fatherDiabetes mellitusUnknownHypertensionUnknownfamily memberDeceasedUnknown motherMalignant neoplasmUnknownsisterHistory of malignant neoplasm of cervix UnknownMalignant neoplasmUnknownDeceasedUnknownmaternal grandmotherHeart disease Unknownpaternal grandmotherHeart diseaseUnknown Advance Directives Advance Directive Response Recorded Date/ Time Advance Directives No April 12:22pm Advance Directive Response Recorded Date/ Time Advance Directives No April 1:22pm Chief Complaint and Reason for Visit Chief Complaint R10.9 Chief Complaint Dysuria Chief Complaint sinus infection Chief Complaint sinus infection ear infection - sinus infectionReason for VisitSinusitis, acute maxillary Chief Complaint Ear Infection, Heada charu Chief Complaint Ear Infection, Heada charu ear fullnessReason for VisitSinusitis, acute maxillary Chronic otitis media of left ear with [...] Left wrist pain April 28, 2024 9:58am Chief Complaint Admit Date R Leg Pain August 12, 2024 1:41 pm RT leg Swelling u/s [place] August 17, 2024 9:46am go over f/f us 8a September 22, 2024 7:58 am Reason for Visit Admit Date Right leg swelling August 12, 2024 1:41 pm Right leg swelling August 17, 2024 9:46 am Reason for Visit Admit Date Right leg swelling August 12, 2024 1:41 pm Right leg swelling August 17, 2024 9:46 am Right leg swelling September 22, 2024 7:58 am Chief Complaint Admit Date RT leg Swelling u/s [place] August 17, 2024 9:46am go over f/f us 8a September 22, 2024 7:58 am [facility] (QDone) November 15, 2024 9:25am Reason for Visit Admit Date Right leg swelling August 17, 2024 9:46 am Right leg swelling September 22, 2024 7:58 am Chief Complaint Admit Date go over f/f us 8a September 22, 2024 7:58 am [facility] (QDone) November 15, 2024 9:25am Reason for Visit Admit Date Right leg swelling September 22, 2024 7:58 am Dietary counseling and surveillance Oct 9:25am Hx of atrial fibrillation without curren t medication November 15, 2024 9:25am Knee pain, bilateral November 15 9:25am Obesity November 15, 2024 9:25am Obesity (BMI 35.0-39.9 without comorbidi ty) November 15, 2024 9:25am Severe needle phobia November 15 9:25am Vitamin D deficiency, unspecified 2024 9:25am Chief Complaint Admit Date [facility] (QDone) November 15, 2024 9:25am Arm pain x 6 weeks January 02, 2025 2 :49pm WMN f/u January 10, 2025 10:33am Reason for Visit Admit Date Dietary counseling and surveillance Oct 9:25am Hx of atrial fibrillation without curren t medication November 15, 2024 9:25am Knee pain, bilateral November 15 9:25am Obesity November 15, 2024 9:25am Obesity (BMI 35.0-39.9 without comorbidi ty) November 15, 2024 9:25am Severe needle phobia November 15 9:25am Vitamin D deficiency, unspecified 2024 9:25am Left lateral epicondylitis January 02, 2025 2:49pm Morbid (severe) obesity due to excess ca lories January 02, 2025 2:49pm Unspecified asthma, uncomplicated Novemb er 2024 2:49pm Dietary counseling and surveillance Novdez mber 2024 10:33am Hx of atrial fibrillation without curren t medication January 10, 2025 10:33am Knee pain, bilateral January 10, 2025 10:33am Obesity January 10, 2025 10:33am Obesity (BMI 35.0-39.9 without comorbidi ty) January 10, 2025 10:33am Severe needle phobia January 10, 2025 10:33am Vitamin D deficiency, unspecified Novemb er 2024 10:33am Chief Complaint Admit Date [facility] (QDone) November 15, 2024 9:25am Arm pain x 6 weeks January 02, 2025 2 :49pm Reason for Visit Admit Date Dietary counseling and surveillance Sept ember 2024 9:25am Hx of atrial fibrillation without curren t medication November 15, 2024 9:25am Knee pain, bilateral November 15 9:25am Obesity November 15, 2024 9:25am Obesity (BMI 35.0-39.9 without comorbidi ty) November 15, 2024 9:25am Severe needle phobia November 15 9:25am Vitamin D deficiency, unspecified Septem crystal 2024 9:25am Left lateral epicondylitis January 02, 2025 2:49pm Reason for Referral Reason [place] [facility]. Former pt of [facility]'s office. Insurance will not cover podiatry. R lateral ankle pain and likely plantar fasciitis. Diagnosis 1 Pain in right ankle and joints of right foot (M25.571) Referral Organization Formerly [facility] cornelia Referring Provider First Name Fatoumata Referring Provider Last Name Denis Referring Provider Specialty Family [facility] Referred Organization [facility] Referred Provider Weston Dumont Referred Address ,[place], [place],[address] Referred Provider Specialty Orthopedic S urgery Referral Priority Routine Additional Source Comments INFORMATION SOURCE (unrecogn ized section and content) DATE CREATED AUTHOR 05/12/2018 [facility] DATE CREATED AUTHOR AUTHOR'S ORGANIZ ATION 02/26/2022 [facility] DATE CREATED AUTHOR AUTHOR'S ORGANIZ ATION 08/21/2024 [facility] EPIC DATE CREATED AUTHOR AUTHOR'S ORGANIZ ATION 09/24/2024 [facility] REASON FOR VISIT (unrecogniz ed section and content) ReasonCommentsEar ProblemOOtitis MediaEar infectionReasonCommentsGynecologic ExamReasonCommentsBreast consult for mastodyniaSpecialtyDiagnoses / Procedures Referred By ContactReferred To ContactGeneral Surgery Diagnoses Mastodynia Procedures FL OFFICE/OUTPATIENT NEW HIGH MDM 60 MINUTES Fatoumata Barrios MD [address] [place] [address] Phone: tel: fax: [facility] [address] [facility] [address] [place] [address] Phone: tel: fax: Referral IDStatusReasonStart DateExpiration DateVisits RequestedVisits [id number] Specialty Services Required [id number] Problem Care Teams (unrecognized sec tion and content) Team Status: Inactive Member Role Status Dates Fatoumata Barrios MD Primary Care Provider, Attending Mariia dickens Active Team Status: Active Member Role Status Dates Fatoumata Barrios MD Primary Care Provider Active Team [...] Start: April 22, 2023 End: April 22, 2023Fatoumata Barrios MDAttending ProviderActiveStart: April 22, 2023 End: April 22, 2023 Team Status: Inactive Member Role Status Dates Fatoumata Barrios MD Primary Care Provide r, Attending Provider Active Start: June 30, 2023 End: June 30, 2023 Team Status: Inactive Member Role Status Dates Fatoumata Barrios MD Primary Care Provide r, Attending Provider Active Start: November 10, 2023 End: November 10, 2023 Team Status: Inactive Member Role Status Dates Fatoumata Barrios MD Primary Care Provide r, Attending Provider Active Start: November 23, 2023 End: November 23, 2023Team MemberRelationshipSpecialtyStart DateEnd Date Fatoumata Barrios MD [address] [facility] [place] [phone] [facility]/25/23Team MemberRelationshipSpecialtyStart DateEnd Date Fatoumata Barrios MD [address] [facility] [place] [phone] [facility] - [facility]11/25/23Team MemberRelationshipSpecialtyStart DateEnd Date Fatoumata Barrios MD [address] [facility] [place] [address] [facility]23 Team Status: Inactive Member Role Status Dates Fatoumata Barrios MD Primary Care Provider Active Start: February 01, 2024 End: February 01, 2024Indy Flower ProviderActiveStart: February 01, 2024 End: February 01, 2024 Team Status: Inactive Member Role Status Dates Fatoumata Barrios MD Primary Care Provider Active Start: February 05, 2024 End: February 05, 2024Luz Maria Dickerson APRN MAIN[employer] APPLICATIONS DEVELOPER-Dc ProviderActive Start: February 05, 2024 End: February 05, 2024 Team Status: Inactive Member Role Status Dates Fatoumata Barrios MD Primary Care Provide r, Attending Provider Active Start: April 28, 2024 End: April 28, 2024Team MemberRelationshipSpecialtyStart DateEnd Date Fatoumata Barrios MD [address] [facility] [place] [phone] PCP - [facility]11/25/23Team MemberRelationshipSpecialtyStart DateEnd Date Fatoumata Barrios MD PCP - [facility]11/25/23Team MemberRelationshipSpecialtyStart DateEnd Date Fatoumata Barrios MD PCP - [facility]11/25/23 Team Status: Inactive Member Role Status Dates Fatoumata Barrios MD Primary Care Provider Active Start: August 12, 2024 End: August 12, 2024Fatoumata Barrios MDAttending ProviderActiveStart: August 12, 2024 End: August 12, 2024 Team Status: Inactive Member Role Status Dates Fatoumata Barrios MD Primary Care Provider Active Start: August 17, 2024 End: August 17, 2024Kim Harding MAINFRAME APPLICATIONS DEVELOPERJose LuisCAttending ProviderActiveStart: August 17, 2024 End: August 17, 2024 Team Status: Inactive Member Role Status Dates Fatoumata Barrios MD Primary Care Provider Active Start: September 22, 2024 End: September 22, 2024Greg Wheat MDAttending ProviderActiveStart: September 22, 2024 End: September 22, 2024 Team Status: Inactive Member Role Status Dates Fatoumata Barrios MD Primary Care Provider Active Start: November 15, 2024 End: November 15, 2024Alexia Adkins , APRNAttending ProviderActiveStart: November 15, 2024 End: November 15, 2024 Team Status: Inactive Member Role Status Dates Fatoumata Barrios MD Primary Care Provider Active Start: November 21, 2024 End: November 21melissa Priest RDAttending ProviderActiveStart: November 21, 2024 End: November 21, 2024 Team Status: Active Member Role/Relationship Status Dates Fatoumata Barrios MD Primary Care Provider Active Team Status: Inactive Member Role/Relationship Status Dates Fatoumata Barrios MD Primary Care Provider Active Start: November 15, 2024 End: November 15, 2024Alexia C Scally , APRNAttending ProviderActiveStart: November 15, 2024 End: November 15, 2024 Team Status: Inactive Member Role/Relationship Status Dates Fatoumata Barrios MD Primary Care Provider Active Start: November 21, 2024 End: November 21thudionicio Priest BUDDYJoycemadelaine ProviderActiveStart: November 21, 2024 End: November 21, 2024 Team Status: Active Member Role/Relationship Status Dates Fatoumata Barrios MD Primary Care Provider Active Start: November 29, 2024 Jose Chaparro ProviderActiveStart: November 29, 2024 Team Status: Inactive Member Role/Relationship Status Dates Fatoumata Barrios MD Primary Care Provider Active Start: January 02, 2025 End: January 02, 2025Jose Chaparro ProviderActiveStart: January 02, 2025 End: January 02, 2025 Team Status: Inactive Member Role/Relationship Status Dates Fatoumata Barrios MD Primary Care Provider Active Start: January 10, 2025 End: January 10, 2025Rigoyaima Sampson Laineanita LINDSAYVadim ProviderActiveStart: January 10, 2025 End: January 10, 2025 Goals (unrecognized section and content) Goals may [...] BE BASED ON THE PRIMARY CLINICAL RECORDS. [employer] provides no warranty or guarantee of the accuracy or completeness of information in this document.
== END 2025-02-27 09:02 | disposition home or self-care (01) ==
PROVIDERS: PCP Family Medicine; Visit Provider Orthopaedic Surgery Orthopaedic Trauma
DX: M25.522 Pain in left elbow (principal)
CPT/HCPCS: 73070